=== PATIENT | female | born 1960 | race Caucasian/White ===

== ENCOUNTER 2018-10-02 09:40 | Day surgery (SDC) | payer OTHER ==
[2018-10-02] MEDS ORDERED: DIPRIVAN 200 MG/20 ML IV ONE (09:41)
[2018-10-02] MEDS ORDERED: Depo-Medrol 40 MG/ML IM ONE (09:41)
[2018-10-02] MEDS ORDERED: XYLOCAINE 1% HCL 20 ML MDV IJ ONE (09:41)
[2018-10-02] MEDS ORDERED: Ketamine HCl 50 MG/ML IV ONE (09:41)
[2018-10-02] MEDS ORDERED: Xylocaine 1% Vial 30 ML PF IJ ONE ×2 (09:41)
[2018-10-02] MEDS ORDERED: Marcaine 0.5% SDV 10 ML IJ ONE (09:41)
--- NOTE | 2018-10-02 12:24 | XRAY ---
24 seconds fluoroscopy time in surgery for right knee injection.
--- NOTE | 2018-10-02 12:24 | XRAY ---
6 seconds fluoroscopy time in surgery for left knee injection.
--- NOTE | 2018-10-02 12:25 | XRAY ---
Indication: Left knee injection. Intraoperative fluoroscopy was provided for 6 seconds. Single digital spot image submitted for interpretation demonstrates needle tip projecting over the left femur intercondylar notch. Small amount of contrast injected for needle tip placement. Correlate with intraoperative findings/report.
--- NOTE | 2018-10-02 12:34 | XRAY ---
Indication: Right knee injection. Intraoperative fluoroscopy was provided for 24 seconds. Single digital spot image submitted for interpretation demonstrates needle tip projecting over the right femur intercondylar notch. Small amount of contrast injected for needle tip placement. Correlate with intraoperative findings/report.
[2018-10-02] MEDS ORDERED: Lactated Ringers 1,000 ML IV ONE (13:47)
== END 2018-10-02 11:41 | disposition home or self-care (01) ==
LOC: SDC-PAIN 09:40
PROVIDERS: ATTEND Psychiatry & Neurology Pain Medicine
DX: M17.0 Bilateral primary osteoarthritis of knee (principal); I10 Essential (primary) hypertension; G47.30 Sleep apnea, unspecified; G47.419 Narcolepsy without cataplexy; K21.9 Gastro-esophageal reflux disease without esophagitis; F32.9 Major depressive disorder, single episode, unspecified
CPT/HCPCS: 20610; 73560; 77002; J1030; J2001; J2704; Q9966

== ENCOUNTER 2019-02-06 20:01 | Emergency (ER) | payer OTHER ==
--- NOTE | 2019-02-06 20:21 | ERPHSYRPT ---
- History of Present Illness Time Seen by Provider: 02/06/19 20:15 Source: patient Exam Limitations: no limitations Physician History: Left foot swelling and pain on the dorsum of the foot, going on for multiple weeks, worse over the past day. Patient's pain is described as a burning type burning sensation. Patient may have a component of heart failure as she had an abnormal 2D Echo recently. Method of Injury: other (patient deals with swelling to her lower extremities multiple month) Occurred: this morning Quality: constant Severity of Pain-Max: moderate Severity of Pain-Current: moderate Lower Extremities Pain: foot: left (swelling and redness at dorsum of the foot) , ankle: left (swelling and redness at dorsum of the ankle) Modifying Factors: Improves With: movement (worsens burning sensation of the pain), other (palpation worsens burning sensation of the pain) Allergies/Adverse Reactions: codeine [Codeine] Allergy (Mild, Verified 02/06/19 20:20) Shortness of Breath latex Allergy (Mild, Verified 02/06/19 20:20) Rash states "have a little on my waistband" Home Medications: Furosemide [Lasix] 40 mg PO DAILY 07/15/13 [History] Modafinil [Provigil] 200 mg PO DAILY 07/15/13 [History] Famotidine 20 mg [Pepcid 20 MG] 20 mg PO BID 10/25/16 [History] Levothyroxine Sodium 100 Mcg [Synthroid 100 Mcg] 2 tab PO QAM 10/25/16 [ History] Amitriptyline HCl 25 mg [Elavil 25 mg] 50 mg PO HS 02/06/19 [History] Cyclobenzaprine HCl [Flexeril] 10 mg PO HS 02/06/19 [History] Lisinopril 20 mg [Zestril 20 MG] 20 mg PO DAILY 02/06/19 [History] Hx Tetanus, Diphtheria Vaccination/Date Given: Yes Hx Influenza Vaccination/Date Given: Yes Hx Pneumococcal Vaccination/Date Given: No - Review of Systems Constitutional: No Fever, No Chills Eyes: No Eye Pain, No Vision Changes Ears, Nose, & Throat: No Throat Pain, No Throat Swelling, No Painful Swallowing Respiratory: No Cough, No Dyspnea Cardiac: No Chest Pain, No Edema, No Palpitations, No Syncope Abdominal/Gastrointestinal: No Abdominal Pain, No Nausea, No Vomiting, No Diarrhea Genitourinary Symptoms: No Dysuria Musculoskeletal: No Back Pain, No Neck Pain Skin: Other (redness to dorsum of left foot/dorsum of ankle), No Rash Neurological: Parasthesia (dorsum of left foot), No Dizziness, No Focal Weakness , No Paralysis, No Sensory Changes, No Tremors Psychological: No Symptoms Endocrine: No Symptoms Hematologic/Lymphatic: No Easy Bleeding, No Easy Bruising All Other Systems: Reviewed and Negative - Past Medical History Pertinent Past Medical History: Yes Neurological History: Other ENT History: No Pertinent History Cardiac History: Hypertension Respiratory History: No Pertinent History Endocrine Medical History: Hypothyroidism Musculoskeletal History: Arthritis GI Medical History: Diverticulosis History: No Pertinent History Psycho-Social History: Anxiety Female Reproductive Disorders: No Pertinent History Other Medical History: Narcolepsy - Past Surgical History Past Surgical History: Yes Neuro Surgical History: No Pertinent History Cardiac: No Pertinent History Respiratory: No Pertinent History Gastrointestinal: Cholecystectomy Genitourinary: No Pertinent History Musculoskeletal: Orthopedic Surgery Female Surgical History: Hysterectomy Other Surgical History: SINUS SURGERY - Social History Smoking Status: Never smoker Exposure to second hand smoke: No Drug Use: none Patient Lives Alone: No - Nursing Vital Signs Nursing Vital Signs: Initial Vital Signs Temperature 99.5 F 02/06/19 20:07 Pulse Rate 98 H 02/06/19 20:07 Respiratory Rate 18 02/06/19 20:07 Blood Pressure 199/100 02/06/19 20:07 O2 Sat by Pulse Oximetry 95 02/06/19 20:07 Pain Scale Pain Intensity 4 - Physical Exam General Appearance: alert Eyes, Ears, Nose, Throat Exam: moist mucous membranes Neck Exam: non-tender, supple Cardiovascular/Respiratory Exam: chest non-tender, normal breath sounds, regular rate/rhythm, heart sounds normal, no respiratory distress, normal peripheral pulses Gastrointestinal/Abdominal Exam: non-tender, soft, No guarding, No tenderness Back Exam: normal inspection, No CVA tenderness, No vertebral tenderness Hips Exam: bilateral: non-tender, normal inspection, normal range of motion, no evidence of injury Legs Exam: bilateral leg: non-tender, normal inspection, normal range of motion , no evidence of injury Knees Exam: bilateral knee: non-tender, normal inspection, normal range of motion, no evidence of injury Ankle Exam: bilateral ankle: non-tender, normal inspection, normal range of motion, no evidence of injury, other (no change in calf circumference bilaterally with no lower leg edema bilaterally) Foot Exam: left foot: pain (dorsum of the left foot), soft tissue tenderness ( dorsum of the left foot), bilateral foot: non-tender, normal inspection, normal range of motion, no evidence of injury, swelling, other (no signs of swelling or erythema to either dorsum of either foot or at the skin over the ankle mortise bilaterally) Neuro/Tendon Exam: normal sensation, normal motor functions Mental Status Exam: alert, oriented x 3, cooperative Skin Exam: normal color, warm, dry SpO2 Interpretation: normal O2 Delivery: Room Air - Radiology Exams Left Foot X-ray Interpretation: Interpreted by me, Reviewed by me, No Fracture, Nml Alignment, Nml Soft Tissues Ordered Tests: Active Orders 24 hr Category Date Time Status IV Insertion STAT Care 02/06/19 20:52 Active FOOT (MINIMUM 3 VIEWS) Stat Exams 02/06/19 20:30 Taken CBC W DIFF Stat Lab 02/06/19 20:30 Completed CK-Creatinine Phosphokinase Stat Lab 02/06/19 20:30 Completed CMP Stat Lab 02/06/19 20:30 Completed Lactic Acid Stat Lab 02/06/19 20:16 Completed Lactic Acid Stat Lab 02/06/19 23:34 Results SED RATE [Erythrocyte Sedimentation Rate] Stat Lab 02/06/19 20:30 Completed Medication Summary Discontinued Medications Generic Name Dose Route Start Last Admin Trade Name Shahnaz PRN Reason Stop Dose Admin Acetaminophen 1,000 mg 02/06/19 22:02 02/06/19 22:10 Tylenol Extra Strength 500 Mg PO 02/06/19 22:03 1,000 mg STAT STA Administration Acetaminophen Confirm 02/06/19 22:06 Tylenol Extra Strength 500 Mg Administered 02/06/19 22:07 Dose 1,000 mg .ROUTE .STK-MED ONE Clonidine 0.1 mg 02/06/19 20:23 02/06/19 20:28 Catapres 0.1 Mg PO 02/06/19 20:24 0.1 mg STAT ONE Administration Clonidine Confirm 02/06/19 20:25 Catapres 0.1 Mg Administered 02/06/19 20:26 Dose 0.1 mg .ROUTE .STK-MED ONE Sodium Chloride 1,000 mls @ 999 mls/hr 02/06/19 20:52 02/06/19 22:14 Sodium Chloride 0.9% 1000 Ml IV 02/06/19 21:52 Infused .Q1H1M STA Infusion Sodium Chloride Confirm 02/06/19 21:08 Sodium Chloride 0.9% 1000 Ml Administered 02/06/19 21:09 Dose 1,000 mls @ ud .ROUTE .STK-MED ONE Ketorolac Tromethamine 15 mg 02/06/19 22:04 02/06/19 22:10 Toradol 30 Mg Injection IV 02/06/19 22:05 15 mg STAT ONE Administration Ketorolac Tromethamine Confirm 02/06/19 22:06 Toradol 30 Mg Injection Administered 02/06/19 22:07 Dose 30 mg .ROUTE .STK-MED ONE Lab/Rad Data: Laboratory Result Diagrams 02/06/19 20:30 02/06/19 20:30 Laboratory Results 02/06/19 02/06/19 02/06/19 Range/Units 23:34 20:30 20:30 WBC 9.7 (4.0-10.5) K/mm3 RBC 5.04 (4.1-5.4) M/mm3 Hgb 14.2 (12.0-16.0) gm/dl Hct 42.6 (35-47) % MCV 84.5 (78-100) fl MCH 28.2 (26-32) pg MCHC 33.3 (32-36) g/dl RDW 13.6 (11.5-14.0) % Plt Count 213 (150-450) K/mm3 MPV 9.7 H (6-9.5) fl Gran % 48.7 (36.0-66.0) % Eos # (Auto) 0.29 (0-0.5) Absolute Lymphs (auto) 3.80 (1.0-4.6) Absolute Monos (auto) 0.83 (0.0-1.3) Lymphocytes % 39.3 (24.0-44.0) % Monocytes % 8.6 (0.0-12.0) % Eosinophils % 3.0 (0.00-5.0) % Basophils % 0.4 (0.0-0.4) % Absolute Granulocytes 4.70 (1.4-6.9) Basophils # 0.04 (0-0.4) ESR 11 (0-20) mm/hr Sodium 142 (137-145) mmol/L Potassium 3.7 (3.5-5.1) mmol/L Chloride 103 (98-107) mmol/L Carbon Dioxide 31 H (22-30) mmol/L Anion Gap 12.3 (5-15) MEQ/L BUN 13 (7-17) mg/dL Creatinine 0.67 (0.52-1.04) mg/dL Estimated GFR > 60.0 ML/MIN Glucose 121 H (74-106) mg/dL Lactic Acid 2.2 H (0.4-2.0) Calcium 9.5 (8.4-10.2) mg/dL Total Bilirubin 0.50 (0.2-1.3) mg/dL AST 35 (14-36) U/L ALT 37 H (0-35) U/L Alkaline Phosphatase 132 H (38-126) U/L Creatine Kinase 147 H (30-135) U/L Serum Total Protein 7.6 (6.3-8.2) g/dL Albumin 4.3 (3.5-5.0) g/dL 02/06/19 Range/Units 20:16 WBC (4.0-10.5) K/mm3 RBC (4.1-5.4) M/mm3 Hgb (12.0-16.0) gm/dl Hct (35-47) % MCV (78-100) fl MCH (26-32) pg MCHC (32-36) g/dl RDW (11.5-14.0) % Plt Count (150-450) K/mm3 MPV (6-9.5) fl Gran % (36.0-66.0) % Eos # (Auto) (0-0.5) Absolute Lymphs (auto) (1.0-4.6) Absolute Monos (auto) (0.0-1.3) Lymphocytes % (24.0-44.0) % Monocytes % (0.0-12.0) % Eosinophils % (0.00-5.0) % Basophils % (0.0-0.4) % Absolute Granulocytes (1.4-6.9) Basophils # (0-0.4) ESR (0-20) mm/hr Sodium (137-145) mmol/L Potassium (3.5-5.1) mmol/L Chloride (98-107) mmol/L Carbon Dioxide (22-30) mmol/L Anion Gap (5-15) MEQ/L BUN (7-17) mg/dL Creatinine (0.52-1.04) mg/dL Estimated GFR ML/MIN Glucose (74-106) mg/dL Lactic Acid 2.6 H (0.4-2.0) Calcium (8.4-10.2) mg/dL Total Bilirubin (0.2-1.3) mg/dL AST (14-36) U/L ALT (0-35) U/L Alkaline Phosphatase (38-126) U/L Creatine Kinase (30-135) U/L Serum Total Protein (6.3-8.2) g/dL Albumin (3.5-5.0) g/dL - Progress Progress: improved, re-examined Progress Note: 02/06/19 23:58 Patient has no edema, redness, warmth, or erythema streaking at the dorsum of the foot on the left side in comparison to the right side. Patient states her pain is completely resolved to the dorsum of her left foot. The patient has improved blood pressure her time in the emergency department with IV hydration, IV pain control and oral medication. Counseled pt/family regarding: lab results, diagnosis, need for follow-up, rad results - Departure Departure Disposition: Home Clinical Impression: Left foot pain, Localized swelling of left foot, Essential hypertension Condition: Good Critical Care Time: No Referrals: SAUL EVANGELISTA [Primary Care Provider] - 02/07/19 Instructions: Dependent Edema (DC), Peripheral Neuropathy (DC), Paresthesias ( DC), High Blood Pressure (DC) Additional Instructions: Return immediately back to the emergency department if any new pain, worsening swelling, worsening redness, new fever, or any other concerning signs or symptoms that was not present at today's emergency department visit for immediate reevaluation in the emergency department. We will notify you if the radiologist interpretation the morning of 02/07/2019 is different from Emergency Department attending interpretation if it changes your management.
[2019-02-06] MEDS ORDERED: Catapres 0.1 MG PO ONE (20:23)
[2019-02-06] MEDS ORDERED: Catapres 0.1 MG ONE (20:25)
[2019-02-06 20:40] LABS: BASOPHIL % 0.4 % (0.0-0.4); Basophil (Absolute #) 0.04 (0-0.4); Eosinophil (Absolute #) 0.29 (0-0.5); Granulocytes % 48.7 % (36.0-66.0); Hematocrit 42.6 % (35-47); Hemoglobin 14.2 gm/dl (12.0-16.0); Lymphocytes % 39.3 % (24.0-44.0); Mean Cell Volume 84.5 fl (78-100); Mean Corpuscular Hemoglobin 28.2 pg (26-32); Mean Corpuscular Hgb Concent. 33.3 g/dl (32-36); Mean Platelet Volume 9.7 fl (6-9.5); Monocyte (Absolute #) 0.83 (0.0-1.3); Monocytes % 8.6 % (0.0-12.0); Platelet Count 213 K/mm3 (150-450); Red Blood Count 5.04 M/mm3 (4.1-5.4); Red Cell Distribution Width 13.6 % (11.5-14.0); White Blood Count 9.7 K/mm3 (4.0-10.5)
[2019-02-06 20:41] LABS: Lactic Acid 2.6 (0.4-2.0)
[2019-02-06 20:52] LABS: ALBUMIN 4.3 g/dL (3.5-5.0); ALKALINE PHOSPHATASE 132 U/L (38-126); ANION GAP 12.3 MEQ/L (5-15); BLOOD UREA NITROGEN 13 mg/dL (7-17); CHLORIDE 103 mmol/L (98-107); CK-Creatinine Phosphokinase 147 U/L (30-135); Calcium 9.5 mg/dL (8.4-10.2); Carbon Dioxide 31 mmol/L (22-30); Creatinine 1 0.67 mg/dL (0.52-1.04); Glucose 121 mg/dL (74-106); Potassium 3.7 mmol/L (3.5-5.1); SGOT/AST 35 U/L (14-36); SGPT/ALT 37 U/L (0-35); SODIUM 142 mmol/L (137-145); Total Protein 7.6 g/dL (6.3-8.2)
[2019-02-06] MEDS ORDERED: Sodium Chloride 0.9% 1000 ML 1,000 ML IV STA (20:52)
[2019-02-06 21:05] LABS: Erythrocyte Sedimentation Rate 11 mm/hr (0-20)
[2019-02-06] MEDS ORDERED: Sodium Chloride 0.9% 1000 ML 1,000 ML ONE (21:08)
[2019-02-06] MEDS ORDERED: TYLENOL EXTRA STRENGTH 500 MG PO STA (22:02)
[2019-02-06] MEDS ORDERED: TORAdol 30 mg Injection IV ONE (22:04)
[2019-02-06] MEDS ORDERED: TORAdol 30 mg Injection ONE (22:06)
[2019-02-06] MEDS ORDERED: TYLENOL EXTRA STRENGTH 500 MG ONE (22:06)
[2019-02-06 23:07] VITALS: O2SAT 96
[2019-02-06 23:45] LABS: Lactic Acid 2.2 (0.4-2.0)
[2019-02-07 00:05] VITALS: BP 148/99; PULSE 88
--- NOTE | 2019-02-07 08:38 | XRAY ---
Indication: Swelling. No known injury. Comparison: None 3 nonweightbearing views of the left foot demonstrates mild midfoot degenerative changes, base 5th metatarsal spurring, moderate heel spurs, and diffuse soft tissue swelling/edema. No other bony, articular, or soft tissue abnormalities.
== END 2019-02-07 00:11 | disposition home or self-care (01) ==
LOC: ED 20:01
DX: M79.672 Pain in left foot (principal); M79.89 Other specified soft tissue disorders; I10 Essential (primary) hypertension
CPT/HCPCS: 36000; 36415; 73630; 80053; 82550; 83605; 85025; 85652; 96360; 96374; 99284; J1885; A9270-GY

== ENCOUNTER 2019-04-09 12:46 | Day surgery (SDC) | payer OTHER ==
[2019-04-09] MEDS ORDERED: Marcaine 0.5% SDV 10 ML IJ ONE (12:47)
[2019-04-09] MEDS ORDERED: DIPRIVAN 200 MG/20 ML IV ONE ×2 (15:09→15:17)
[2019-04-09] MEDS ORDERED: Ketamine HCl 50 MG/ML ONE (15:18)
--- NOTE | 2019-04-09 16:29 | XRAY ---
17 seconds fluoroscopy time in surgery for genicular nerve root block.
--- NOTE | 2019-04-09 16:29 | XRAY ---
Indication: Genicular nerve root injection. Intraoperative fluoroscopy was provided for 17 seconds. 2 digital spot images submitted for interpretation demonstrates anterior needle tips projecting just superior to the medial/lateral right femur condyles and medial tibial plateau. Correlate with intraoperative findings/report.
[2019-04-09] MEDS ORDERED: Lactated Ringers 1,000 ML IV ONE (18:22)
== END 2019-04-09 15:47 | disposition home or self-care (01) ==
LOC: SDC-PAIN 12:46
PROVIDERS: ATTEND Psychiatry & Neurology Pain Medicine
DX: M17.12 Unilateral primary osteoarthritis, left knee (principal); I10 Essential (primary) hypertension; G47.30 Sleep apnea, unspecified; K21.9 Gastro-esophageal reflux disease without esophagitis; G47.419 Narcolepsy without cataplexy; F32.9 Major depressive disorder, single episode, unspecified; Z79.899 Other long term (current) drug therapy
CPT/HCPCS: 64450; 73560; 77002; J2704

== ENCOUNTER 2019-06-11 11:40 | Day surgery (SDC) | payer MEDICAID, OTHER ==
[2019-06-11] MEDS ORDERED: Depo-Medrol 40 MG/ML IM ONE (11:41)
[2019-06-11] MEDS ORDERED: Xylocaine 1% Vial 30 ML PF IJ ONE (11:41)
[2019-06-11] MEDS ORDERED: Marcaine 0.5% SDV 10 ML IJ ONE (11:41)
[2019-06-11] MEDS ORDERED: VERSED 5 MG/5 ML ONE (12:26)
[2019-06-11] MEDS ORDERED: Ketamine HCl 50 MG/ML ONE ×2 (12:44→13:14)
[2019-06-11] MEDS ORDERED: DIPRIVAN 200 MG/20 ML IV ONE ×2 (12:44→13:14)
--- NOTE | 2019-06-11 15:07 | XRAY ---
Indication: Left genicular nerve root injection. Intraoperative fluoroscopy was provided for 22 seconds. 2 digital spot images submitted for interpretation demonstrates anterior needle tips projecting just superior to the medial/lateral left femur condyles and medial tibial plateau. Correlate with intraoperative findings/report.
[2019-06-11] MEDS ORDERED: Lactated Ringers 1,000 ML IV ONE (15:31)
--- NOTE | 2019-06-11 16:42 | XRAY ---
22 seconds of fluoroscopy was used in surgery for a left genicular nerve ablation.
== END 2019-06-11 13:42 | disposition home or self-care (01) ==
LOC: SDC-PAIN 11:40
PROVIDERS: ATTEND Psychiatry & Neurology Pain Medicine
DX: M17.12 Unilateral primary osteoarthritis, left knee (principal); M25.562 Pain in left knee; I10 Essential (primary) hypertension; G47.30 Sleep apnea, unspecified; G47.419 Narcolepsy without cataplexy; K21.9 Gastro-esophageal reflux disease without esophagitis; F32.9 Major depressive disorder, single episode, unspecified; Z79.899 Other long term (current) drug therapy
CPT/HCPCS: 64624; 73560; 77002; J1030; J2001; J2250; J2704

== ENCOUNTER 2019-07-23 08:37 | Day surgery (SDC) | payer OTHER ==
[2019-07-23] MEDS ORDERED: Xylocaine 1% Vial 30 ML PF IJ ONE (08:38)
[2019-07-23] MEDS ORDERED: Marcaine 0.5% SDV 10 ML IJ ONE (08:38)
[2019-07-23] MEDS ORDERED: Ketamine HCl 50 MG/ML ONE (10:03)
[2019-07-23] MEDS ORDERED: DIPRIVAN 200 MG/20 ML IV ONE (10:03)
[2019-07-23] MEDS ORDERED: VERSED 5 MG/5 ML ONE (10:11)
--- NOTE | 2019-07-23 11:47 | XRAY ---
Indication: Right knee genicular nerve block Intraoperative fluoroscopy was provided for 27 seconds. 2 digital spot images submitted for interpretation demonstrates anterior needle tips projecting just superior to the medial/lateral right femur condyle and medial tibial plateau. Correlated with intraoperative findings/report.
--- NOTE | 2019-07-23 11:51 | XRAY ---
27 seconds fluoroscopy time in surgery for right genicular nerve block.
[2019-07-23] MEDS ORDERED: Lactated Ringers 1,000 ML IV ONE (13:38)
== END 2019-07-23 11:03 | disposition home or self-care (01) ==
LOC: SDC-PAIN 08:37
PROVIDERS: ATTEND Psychiatry & Neurology Pain Medicine
DX: M17.11 Unilateral primary osteoarthritis, right knee (principal); M25.561 Pain in right knee; I10 Essential (primary) hypertension; G47.30 Sleep apnea, unspecified; K21.9 Gastro-esophageal reflux disease without esophagitis; F41.8 Other specified anxiety disorders; Z79.899 Other long term (current) drug therapy
CPT/HCPCS: 64624; 73560; 77002; J2001; J2250; J2704

== ENCOUNTER 2019-11-06 23:04 | Emergency (ER) | payer OTHER ==
[2019-11-06 23:20] VITALS: BP 124/84; PULSE 104; O2SAT 95
[2019-11-06] MEDS ORDERED: Augmentin 875-125 Tablet PO ONE (23:23)
--- NOTE | 2019-11-06 23:23 | ERPHSYRPT ---
- History of Present Illness Time Seen by Provider: 11/06/19 23:17 Source: patient Exam Limitations: no limitations Physician History: Uriel is a 58-year-old female who presents with what was originally an insect bite on the face just on the right side of the upper lip. That has now become quite swollen and indurated and has a crusty lesion which was caused by her squeezing it and getting a bloody drainage. Timing/Duration: day(s) (3), gradual onset Quality: itchy, painful Severity: moderate Location: face Possible Causes: insect bite Associated Symptoms: denies symptoms Allergies/Adverse Reactions: codeine [Codeine] Allergy (Mild, Verified 02/06/19 20:20) Shortness of Breath latex Allergy (Mild, Verified 02/06/19 20:20) Rash states "have a little on my waistband" Home Medications: Furosemide [Lasix] 40 mg PO DAILY 07/15/13 [History] Modafinil [Provigil] 200 mg PO DAILY 07/15/13 [History] Famotidine 20 mg [Pepcid 20 MG] 20 mg PO BID 10/25/16 [History] Levothyroxine Sodium 100 Mcg [Synthroid 100 Mcg] 2 tab PO QAM 10/25/16 [ History] Amitriptyline HCl 25 mg [Elavil 25 mg] 50 mg PO HS 02/06/19 [History] Cyclobenzaprine HCl [Flexeril] 10 mg PO HS 02/06/19 [History] Lisinopril 20 mg [Zestril 20 MG] 20 mg PO DAILY 02/06/19 [History] Hx Tetanus, Diphtheria Vaccination/Date Given: Yes Hx Influenza Vaccination/Date Given: Yes Hx Pneumococcal Vaccination/Date Given: No - Review of Systems Constitutional: No Fever, No Chills Eyes: No Symptoms Ears, Nose, & Throat: No Symptoms Respiratory: No Cough, No Dyspnea Cardiac: No Chest Pain, No Edema, No Syncope Abdominal/Gastrointestinal: No Abdominal Pain, No Nausea, No Vomiting, No Diarrhea Genitourinary Symptoms: No Dysuria Musculoskeletal: No Back Pain, No Neck Pain Skin: Skin Lesions (2 lesions with underlying induration right side of the face about a centimeter above the right upper lip), No Rash Neurological: No Dizziness, No Focal Weakness, No Sensory Changes Psychological: No Symptoms Endocrine: No Symptoms All Other Systems: Reviewed and Negative - Past Medical History Pertinent Past Medical History: Yes Neurological History: Other ENT History: No Pertinent History Cardiac History: Hypertension Respiratory History: No Pertinent History Endocrine Medical History: Hypothyroidism Musculoskeletal History: Arthritis GI Medical History: Diverticulosis History: No Pertinent History Psycho-Social History: Anxiety Female Reproductive Disorders: No Pertinent History Other Medical History: Narcolepsy - Past Surgical History Past Surgical History: Yes Neuro Surgical History: No Pertinent History Cardiac: No Pertinent History Respiratory: No Pertinent History Gastrointestinal: Cholecystectomy Genitourinary: No Pertinent History Musculoskeletal: Orthopedic Surgery Female Surgical History: Hysterectomy Other Surgical History: SINUS SURGERY - Social History Smoking Status: Never smoker Exposure to second hand smoke: No Drug Use: none Patient Lives Alone: No - Physical Exam General Appearance: mild distress, alert Eye Exam: PERRL/EOMI, eyes nml inspection Ears, Nose, Throat Exam: normal ENT inspection, pharynx normal, moist mucous membranes Neck Exam: normal inspection, non-tender, supple, full range of motion Respiratory Exam: normal breath sounds, lungs clear, No respiratory distress Cardiovascular Exam: regular rate/rhythm, normal heart sounds Gastrointestinal/Abdomen Exam: soft, mass, No tenderness Back Exam: normal inspection, normal range of motion, No CVA tenderness, No vertebral tenderness Extremity Exam: normal inspection, normal range of motion Neurologic Exam: alert, oriented x 3, cooperative, normal mood/affect, sensation nml, No motor deficits Skin Exam: normal color, warm, dry, other (There is a crusted lesion right side of the face with underlying induration and swelling) - Course Nursing assessment & vital signs reviewed: Yes - Progress Progress: unchanged - Departure Departure Disposition: Home Clinical Impression: Insect bite of face, infected Condition: Stable Critical Care Time: No Referrals: SAUL EVANGELISTA [Primary Care Provider] - Instructions: Insect Bites and Stings (DC) Prescriptions: Amoxicillin/Potassium Clav [Augmentin 875-125 Tablet] 1 each PO BID 10 Days #20 tablet
[2019-11-06] MEDS ORDERED: Augmentin 875-125 Tablet ONE (23:29)
== END 2019-11-06 23:35 | disposition home or self-care (01) ==
LOC: ED 23:04
DX: T63.481A Toxic effect of venom of other arthropod, accidental (unintentional), initial encounter (principal); S00.86XA Insect bite (nonvenomous) of other part of head, initial encounter; W57.XXXA Bitten or stung by nonvenomous insect and other nonvenomous arthropods, initial encounter; Y93.89 Activity, other specified; Y92.89 Other specified places as the place of occurrence of the external cause
CPT/HCPCS: 99283; A9270-GY

== ENCOUNTER 2020-11-09 17:53 | Observation (INO) | payer MEDICARE ==
[2020-11-09 18:28] LABS: Absolute Neutrophil Ct (ANC) 7.45 (1.4-6.9); BASOPHIL % 0.5 % (0.0-0.4); Basophil (Absolute #) 0.06 (0-0.4); Eosinophil % 1.7 % (0.00-5.0); Eosinophil (Absolute #) 0.22 (0-0.5); Hemoglobin 14.6 gm/dl (12.0-16.0); Lymphocyte (Absolute #) 4.13 (1.0-4.6); Lymphocytes % 32.3 % (24.0-44.0); Mean Cell Volume 84.4 fl (78-100); Mean Corpuscular Hemoglobin 27.4 pg (26-32); Mean Corpuscular Hgb Concent. 32.4 g/dl (32-36); Monocyte (Absolute #) 0.94 (0.0-1.3); Monocytes % 7.3 % (0.0-12.0); Neutrophil % 58.2 % (36.0-66.0); Platelet Count 281 K/mm3 (150-450); Red Blood Count 5.33 M/mm3 (4.1-5.4); Red Cell Distribution Width 13.6 % (11.5-14.0); White Blood Count 12.8 K/mm3 (4.0-10.5)
[2020-11-09 18:45] LABS: Appearance CLEAR (CLEAR); Bilirubin NEGATIVE (NEGATIVE); Blood NEGATIVE Ery/ul (0-5); Epithelial Cells RARE /HPF (FEW); Glucose NEGATIVE (NEGATIVE); Ketones NEGATIVE (NEGATIVE); Leukocyte Esterase SMALL (NEGATIVE); Mucus SLIGHT /HPF (NEGATIVE); Nitrite NEGATIVE (NEGATIVE); Protein,Urine Dip NEGATIVE (Negative); RBC 0-2 /HPF (0-2); Specific Gravity 1.006 (1.005-1.025); Urobilinogen NEGATIVE mg/dL (0-1)
[2020-11-09 19:16] LABS: ALBUMIN 4.3 g/dL (3.5-5.0); ALKALINE PHOSPHATASE 105 U/L (38-126); ANION GAP 11.9 MEQ/L (5-15); BLOOD UREA NITROGEN 11 mg/dL (7-17); CHLORIDE 106 mmol/L (98-107); Carbon Dioxide 25 mmol/L (22-30); Creatinine 1 0.59 mg/dL (0.52-1.04); EST GLOMERULAR FILTRATION RATE > 60.0 ML/MIN; Glucose 126 mg/dL (74-106); MAGNESIUM 2.1 mg/dL (1.6-2.3); Potassium 3.2 mmol/L (3.5-5.1); SGOT/AST 38 U/L (14-36); SGPT/ALT 38 U/L (0-35); SODIUM 140 mmol/L (137-145); Total Protein 7.3 g/dL (6.3-8.2)
[2020-11-09] MEDS ORDERED: Klor Con 10 MEQ PO ONE ×2 (19:40→19:51)
--- NOTE | 2020-11-09 19:47 | ERPHSYRPT ---
- History of Present Illness Time Seen by Provider: 11/09/20 18:30 Historian: patient Exam Limitations: no limitations Patient Subjective Stated Complaint: Pt began having chest pain at approx 1500, also has pain to the right lateral ribs Triage Nursing Assessment: Pt brought to the ER by her , rates pain in chest and ribs as 5/10, pulses normal, hypertensive, skin n/w/d, nausea, doesn't appear to be in any distress Physician History: Patient is a 59-year-old obese female presents to our emergency department with complaints of chest pressure. Symptoms started approximately 3 PM. Patient admits to feeling short of breath and fatigued lately patient attributing her symptoms to blood pressure medication. Patient states her blood pressure medication has been elevated. She was previously on lisinopril. Her primary care doctor change her to metoprolol. Patient believes metoprolol is making her sick. Symptoms are moderate in intensity. No specific worsening or improving factors. Patient denies history of diabetes. Significant other bedside. They voiced no other complaints or concerns at this time. Timing/Duration: today Activities at Onset: none Quality: pressure Location: substernal Chest Pain Radiation: no radiation Severity of Pain-Max: moderate Severity of Pain-Current: mild Modifying Factors: Improves With: nothing Associated Symptoms: nausea, No hurts to breathe, No syncope, No headache, No dizziness Prior Chest Pain/Cardiac Workup: no prior chest pain Nitro Today/Relief: no nitro taken today Aspirin Treatment Today: no aspirin today Allergies/Adverse Reactions: codeine [Codeine] Allergy (Mild, Verified 11/09/20 18:02) Shortness of Breath latex Allergy (Mild, Verified 11/09/20 18:02) Rash states "have a little on my waistband" Home Medications: Furosemide [Lasix] 40 mg PO DAILY 07/15/13 [History] Modafinil [Provigil] 200 mg PO DAILY 07/15/13 [History] Famotidine 20 mg [Pepcid 20 MG] 20 mg PO BID 10/25/16 [History] Levothyroxine Sodium 100 Mcg [Synthroid 100 Mcg] 2 tab PO QAM 10/25/16 [History] Amlodipine Besylate 10 mg PO BID 11/09/20 [History] Diclofenac Sodium [Voltaren] 75 mg PO DAILY 11/09/20 [History] Metoprolol Tartrate 50 mg [Lopressor 50 MG] 50 mg PO BID 11/09/20 [History] Topiramate [Topamax] 50 mg PO DAILY 11/09/20 [History] Hx Tetanus, Diphtheria Vaccination/Date Given: Yes Hx Influenza Vaccination/Date Given: Yes Hx Pneumococcal Vaccination/Date Given: No Travel Risk - International Travel Have you traveled outside of the country in past 3 weeks: No - Coronavirus Screening Are you exhibiting any of the following symptoms?: No Close contact with a COVID-19 positive Pt in past 14-21 Days: No - Vaccine Status Have you recieved a Covid-19 vaccination: No - Review of Systems Constitutional: No Symptoms, No Fever, No Chills Eyes: No Symptoms Ears, Nose, & Throat: No Symptoms Respiratory: No Symptoms, No Cough, No Dyspnea Cardiac: No Symptoms, No Chest Pain, No Edema, No Syncope Abdominal/Gastrointestinal: No Symptoms, No Abdominal Pain, No Nausea, No Vomiti ng, No Diarrhea Genitourinary Symptoms: No Symptoms, No Dysuria Musculoskeletal: No Symptoms, No Back Pain, No Neck Pain Skin: No Symptoms, No Rash Neurological: No Symptoms, No Dizziness, No Focal Weakness, No Sensory Changes Psychological: No Symptoms Endocrine: No Symptoms Hematologic/Lymphatic: No Symptoms Immunological/Allergic: No Symptoms All Other Systems: Reviewed and Negative - Past Medical History Pertinent Past Medical History: Yes Neurological History: Other ENT History: No Pertinent History Cardiac History: Hypertension Respiratory History: No Pertinent History Endocrine Medical History: Hypothyroidism Musculoskeletal History: Arthritis GI Medical History: Diverticulosis History: No Pertinent History Psycho-Social History: Anxiety Female Reproductive Disorders: No Pertinent History Other Medical History: Narcolepsy - Past Surgical History Past Surgical History: Yes Neuro Surgical History: No Pertinent History Cardiac: No Pertinent History Respiratory: No Pertinent History Gastrointestinal: Cholecystectomy Genitourinary: No Pertinent History Musculoskeletal: Orthopedic Surgery Female Surgical History: Hysterectomy Other Surgical History: SINUS SURGERY - Social History Smoking Status: Never smoker Exposure to second hand smoke: No Drug Use: none Patient Lives Alone: No - Female History Hx Now: No - Nursing Vital Signs Nursing Vital Signs: Initial Vital Signs Temperature 97.9 F 11/09/20 17:54 Pulse Rate 84 11/09/20 17:54 Blood Pressure 180/108 11/09/20 17:54 O2 Sat by Pulse Oximetry 96 11/09/20 17:54 Pain Scale Pain Intensity 0 - Physical Exam General Appearance: no apparent distress, alert Eye Exam: PERRL/EOMI, eyes nml inspection Ears, Nose, Throat Exam: normal ENT inspection, moist mucous membranes Neck Exam: normal inspection, non-tender, supple, full range of motion Respiratory Exam: normal breath sounds, lungs clear, No respiratory distress Cardiovascular Exam: regular rate/rhythm, normal heart sounds Gastrointestinal/Abdomen Exam: soft, No tenderness, No mass Back Exam: normal inspection, No CVA tenderness, No vertebral tenderness Extremity Exam: normal inspection, normal range of motion Neurologic Exam: alert, oriented x 3, cooperative, normal mood/affect, sensation nml, No motor deficits Skin Exam: normal color, warm, dry Lymphatic Exam: No adenopathy SpO2 Interpretation: normal SpO2: 97 O2 Delivery: Room Air - Course Nursing assessment & vital signs reviewed: Yes EKG Interpreted by Me: RATE ([id number]), Sinus Rhythm, NORMAL AXIS, NORMAL INTERVALS - Radiology Exams Chest X-ray Interpretation: Interpreted by me (Negative chest x-ray. No infiltrate or consolidation. Normal cardiac silhouette. Normal bony thorax. Negative chest x-ray) Ordered Tests: Active Orders 24 hr Category Date Time Status Pest Technician STAT Care 11/09/20 18:06 Active EKG-ER Only STAT Care 11/09/20 18:06 Active IV Insertion STAT Care 11/09/20 18:06 Active Pulse Oximetry (ED) STAT Care 11/09/20 18:06 Active CHEST 1 VIEW (PORTABLE) Stat Exams 11/09/20 18:06 Taken CBC W DIFF Stat Lab 11/09/20 18:00 Completed CMP Stat Lab 11/09/20 18:00 Completed MAGNESIUM Stat Lab 11/09/20 18:00 Completed TROPONIN Q3H Lab 11/09/20 18:00 Completed TROPONIN Q3H Lab 11/09/20 20:58 Completed TROPONIN Q3H Lab 11/10/20 00:15 Ordered TROPONIN Q3H Lab 11/10/20 03:15 Ordered TROPONIN Q3H Lab 11/10/20 06:15 Ordered UA W/RFX UR CULTURE Stat Lab 11/09/20 18:08 Completed Medication Summary Discontinued Medications Generic Name Dose Route Start Last Admin Trade Name Freq PRN Reason Stop Dose Admin Aspirin 324 mg 11/09/20 19:59 06/15/21 20:02 Baby Aspirin 81 Mg Chew PO 11/09/20 20:00 324 mg STAT ONE Administration Aspirin Confirm 11/09/20 20:01 Baby Aspirin 81 Mg Chew Administered 11/09/20 20:02 Dose 324 mg .ROUTE .STK-MED ONE Nitroglycerin 1 gm 11/09/20 19:59 11/09/20 20:04 Nitro-Bid 2% Ud Packets TOP 11/09/20 20:00 1 gm STAT ONE Administration Nitroglycerin Confirm 11/09/20 20:01 Nitrostat 0.4 Mg (Ed) Administered 11/09/20 20:02 Dose 0.4 mg SL .STK-MED ONE Nitroglycerin Confirm 11/09/20 20:03 Nitro-Bid 2% Ud Packets Administered 11/09/20 20:04 Dose 1 gm .ROUTE .STK-MED ONE Potassium Chloride 40 meq 11/09/20 19:40 11/09/20 20:04 Klor Con 10 Meq PO 11/09/20 19:41 40 meq STAT ONE Administration Potassium Chloride Confirm 11/09/20 19:51 Klor Con 10 Meq Administered 11/09/20 19:52 Dose 20 meq PO .STK-MED ONE Lab/Rad Data: Laboratory Result Diagrams 11/09/20 18:00 11/09/20 18:00 Laboratory Results 11/09/20 11/09/20 11/09/20 Range/Units 21:35 20:58 18:08 WBC (4.0-10.5) K/mm3 RBC (4.1-5.4) M/mm3 Hgb (12.0-16.0) gm/dl Hct (35-47) % MCV (78-100) fl MCH (26-32) pg MCHC (32-36) g/dl RDW (11.5-14.0) % Plt Count (150-450) K/mm3 MPV (7.5-11.0) fl Gran % (36.0-66.0) % Eos # (Auto) (0-0.5) Absolute Lymphs (auto) (1.0-4.6) Absolute Monos (auto) (0.0-1.3) Lymphocytes % (24.0-44.0) % Monocytes % (0.0-12.0) % Eosinophils % (0.00-5.0) % Basophils % (0.0-0.4) % Absolute Granulocytes (1.4-6.9) Basophils # (0-0.4) Sodium (137-145) mmol/L Potassium (3.5-5.1) mmol/L Chloride (98-107) mmol/L Carbon Dioxide (22-30) mmol/L Anion Gap (5-15) MEQ/L BUN (7-17) mg/dL Creatinine (0.52-1.04) mg/dL Estimated GFR ML/MIN Glucose (74-106) mg/dL Calcium (8.4-10.2) mg/dL Magnesium (1.6-2.3) mg/dL Total Bilirubin (0.2-1.3) mg/dL AST (14-36) U/L ALT (0-35) U/L Alkaline Phosphatase (38-126) U/L Troponin I < 0.012 (0.000-0.034) ng/mL Serum Total Protein (6.3-8.2) g/dL Albumin (3.5-5.0) g/dL Urine Color STRAW (YELLOW) Urine Appearance CLEAR (CLEAR) Urine pH 6.0 (5-6) Ur Specific [place] 1.006 (1.005-1.025) Urine Protein NEGATIVE (Negative) Urine Ketones NEGATIVE (NEGATIVE) Urine Blood NEGATIVE (0-5) Randall/ul Urine Nitrite NEGATIVE (NEGATIVE) Urine Bilirubin NEGATIVE (NEGATIVE) Urine Urobilinogen NEGATIVE (0-1) mg/dL Ur Leukocyte Esterase SMALL (NEGATIVE) Urine WBC (Auto) 6-10 (0-5) /HPF Urine RBC (Auto) 0-2 (0-2) /HPF U Epithel Cells (Auto) RARE (FEW) /HPF Urine Bacteria (Auto) NONE (NEGATIVE) /HPF Urine Mucus (Auto) SLIGHT (NEGATIVE) /HPF Urine Culture Reflexed NO (NO) Urine Glucose NEGATIVE (NEGATIVE) mg/dL SARS-CoV-2 (PCR) NEGATIVE (NEGATIVE) 11/09/20 11/09/20 11/09/20 Range/Units 18:00 18:00 18:00 WBC 12.8 H (4.0-10.5) K/mm3 RBC 5.33 (4.1-5.4) M/mm3 Hgb 14.6 (12.0-16.0) gm/dl Hct 45.0 (35-47) % MCV 84.4 (78-100) fl MCH 27.4 (26-32) pg MCHC 32.4 (32-36) g/dl RDW 13.6 (11.5-14.0) % Plt Count 281 (150-450) K/mm3 MPV 10.0 (7.5-11.0) fl Gran % 58.2 (36.0-66.0) % Eos # (Auto) 0.22 (0-0.5) Absolute Lymphs (auto) 4.13 (1.0-4.6) Absolute Monos (auto) 0.94 (0.0-1.3) Lymphocytes % 32.3 (24.0-44.0) % Monocytes % 7.3 (0.0-12.0) % Eosinophils % 1.7 (0.00-5.0) % Basophils % 0.5 (0.0-0.4) % Absolute Granulocytes 7.45 H (1.4-6.9) Basophils # 0.06 (0-0.4) Sodium 140 (137-145) mmol/L Potassium 3.2 L (3.5-5.1) mmol/L Chloride 106 (98-107) mmol/L Carbon Dioxide 25 (22-30) mmol/L Anion Gap 11.9 (5-15) MEQ/L BUN 11 (7-17) mg/dL Creatinine 0.59 (0.52-1.04) mg/dL Estimated GFR > 60.0 ML/MIN Glucose 126 H (74-106) mg/dL Calcium 9.0 (8.4-10.2) mg/dL Magnesium 2.1 (1.6-2.3) mg/dL Total Bilirubin 0.40 (0.2-1.3) mg/dL AST 38 H (14-36) U/L ALT 38 H (0-35) U/L Alkaline Phosphatase 105 (38-126) U/L Troponin I < 0.012 (0.000-0.034) ng/mL Serum Total Protein 7.3 (6.3-8.2) g/dL Albumin 4.3 (3.5-5.0) g/dL Urine Color (YELLOW) Urine Appearance (CLEAR) Urine pH (5-6) Ur Specific [place] (1.005-1.025) Urine Protein (Negative) Urine Ketones (NEGATIVE) Urine Blood (0-5) Randall/ul Urine Nitrite (NEGATIVE) Urine Bilirubin (NEGATIVE) Urine Urobilinogen (0-1) mg/dL Ur Leukocyte Esterase (NEGATIVE) Urine WBC (Auto) (0-5) /HPF Urine RBC (Auto) (0-2) /HPF U Epithel Cells (Auto) (FEW) /HPF Urine Bacteria (Auto) (NEGATIVE) /HPF Urine Mucus (Auto) (NEGATIVE) /HPF Urine Culture Reflexed (NO) Urine Glucose (NEGATIVE) mg/dL SARS-CoV-2 (PCR) (NEGATIVE) - Progress Progress: improved Air Movement: good Progress Note: Case discussed with Dr. Oneill who accepts admission to observation. Plan of care discussed with patient. She agrees to admission at [facility] for further evaluation and treatment. 11/09/20 23:08 Blood Culture(s) Obtained: No Antibiotics given: No Discussed with : Kem Will see patient in: hospital (observation) Counseled pt/family regarding: lab results, diagnosis, rad results - Departure Departure Disposition: Observation Clinical Impression: Chest pain, Hypokalemia, Leukocytosis, ACS (acute coronary syndrome) Condition: Stable Critical Care Time: No
[2020-11-09] MEDS ORDERED: NITRO-BID 2% UD PACKETS TOP ONE (19:59)
[2020-11-09] MEDS ORDERED: BABY ASPIRIN 81 MG CHEW PO ONE (19:59)
[2020-11-09] MEDS ORDERED: BABY ASPIRIN 81 MG CHEW ONE (20:01)
[2020-11-09] MEDS ORDERED: Nitrostat 0.4 MG (ED) SL ONE (20:01)
[2020-11-09] MEDS ORDERED: NITRO-BID 2% UD PACKETS ONE (20:03)
[2020-11-09] MEDS: NORCO 7.5/325 MG TAB PO PRN (23:55)
[2020-11-10] MEDS ORDERED: Pepcid 20 MG PO SCH
[2020-11-10] MEDS: SYNTHROID 100 MCG PO SCH (05:49)
[2020-11-10] MEDS ORDERED: MORPHINE SULFATE 10 MG/ML IV ONE (06:00)
[2020-11-10] MEDS ORDERED: Zofran 4 MG/2 ML VIAL IV PRN (06:09)
--- NOTE | 2020-11-10 07:30 | PCM.SSS ---
History of Present Illness - Chief Complaint Chief Complaint: chest pain rule out History of Present Illness: is a 59 year old female pt of mine with morbid obesity, HTN, depression, narcolepsy, and anxiety who was admitted through ER last night with chest pain, to rule out PR. She started having sudden substernal/L upper and R upper chest pressure, 5-6/10, at approx 1500 yesterday. Denies diaphoresis but did have SOB. Just "felt weird." Denies palpitations or nausea. She told the ER doctor she had been having issues since starting metoprolol; she told me she has fatigue, nausea, and chest heaviness with it. We stopped lisinopril d/t cough and started metoprolol, but that was in Mar 2020. Pt used to see Dr. David Sim and had a stress test several yrs ago; moiz arredondo was not able to tolerate the chemical test at that time so walked on the treadmill. Per pt report she was released by him. Thinks she had an echo about a year ago. - Review of Systems Respiratory: Short Of Breath Cardiac: Chest Pain, Edema (recent LE edema, attributes to hot weather) Abdominal/Gastrointestinal: Abdominal Pain (intermittent, RUQ, 2-3/10 started yesterday) Psychological: No Anxiety, No Depression All Other Systems: Reviewed and Negative Medications & Allergies Home Medications: Home Medication List Furosemide [Lasix] 40 mg PO DAILY 07/15/13 [History Confirmed 11/09/20] Modafinil [Provigil] 200 mg PO DAILY 07/15/13 [History Confirmed 11/09/20] Famotidine 20 mg [Pepcid 20 MG] 20 mg PO BID 10/25/16 [History Confirmed 11/09/20] Levothyroxine Sodium 100 Mcg [Synthroid 100 Mcg] 2 tab PO QAM 10/25/16 [History Confirmed 11/09/20] Hydrocodone Bit/Acetaminophen [Hydrocodon-Acetaminoph 7.5-325] 1 each PO QID PRN #120 tablet 10/30/16 [Rx Confirmed 11/09/20] Amlodipine Besylate 10 mg PO DAILY 11/09/20 [History Confirmed 11/09/20] Diclofenac Sodium [Voltaren] 75 mg PO DAILY 11/09/20 [History Confirmed 11/09/20] Metoprolol Tartrate 50 mg [Lopressor 50 MG] 25 mg PO QID 11/09/20 [History Confirmed 11/09/20] Topiramate [Topamax] 50 mg PO DAILY 11/09/20 [History Confirmed 11/09/20] Allergies/Adverse Reactions: Allergies Allergy/AdvReac Type Severity Reaction Status Date / Time coconut Allergy Severe Anaphylactic Verified 11/09/20 23:20 Reaction codeine [Codeine] Allergy Mild Shortness Verified 11/09/20 18:02 of Breath latex Allergy Mild Rash Verified 11/09/20 18:02 - Past Medical History Past Medical History: Yes Neurological History: Other ENT History: No Pertinent History Cardiac History: Hypertension Respiratory History: No Pertinent History Endocrine Medical History: Hypothyroidism Musculoskelatal History: Arthritis GI Medical History: Diverticulosis History: No Pertinent History Pyscho-Social History: Anxiety Reproductive Disorders: No Pertinent History Comment: Narcolepsy - Female History Are you now?: No - Past Surgical History Past Surgical History: Yes Neuro Surgical History: No Pertinent History Cardiac History: No Pertinent History Respiratory Surgery: No Pertinent History GI Surgical History: Cholecystectomy Genitourinary Surgical Hx: No Pertinent History Musculskeletal Surgical Hx: Orthopedic Surgery Female Surgical History: Hysterectomy Other Surgical History: SINUS SURGERY - Social History Smoking Status: Never smoker Exposure to second hand smoke: No Alcohol: None Drug Use: none - Physical Exam Vital Signs: Vital Signs - 24 hr Temp Pulse Resp BP Pulse Ox 11/10/20 06:52 75 137/63 98 11/10/20 03:45 97.7 F 71 19 108/56 94 L 11/09/20 23:20 97 11/09/20 23:03 98.1 F 85 20 171/91 96 11/09/20 22:57 98.1 F 85 171/91 97 11/09/20 22:00 86 16 169/100 95 11/09/20 21:00 87 20 173/98 98 11/09/20 20:04 80 18 173/112 96 11/09/20 19:10 80 16 172/108 97 11/09/20 18:50 76 18 157/103 97 11/09/20 18:08 96 11/09/20 17:54 97.9 F 84 180/108 96 General Appearance: no apparent distress, obese Neurologic Exam: oriented x 3, cooperative Eye Exam: eyes nml inspection Ears, Nose, Throat Exam: moist mucous membranes Neck Exam: normal inspection, non-tender, No lymphadenopathy Respiratory Exam: normal breath sounds, lungs clear, No crackles/rales, No rhonchi, No wheezing Cardiovascular Exam: regular rate/rhythm, normal heart sounds, No murmur Gastrointestinal/Abdomen Exam: soft, normal bowel sounds, No tenderness, No distention, No mass, No guarding, No rebound Back Exam: normal inspection, No rash Extremity Exam: normal inspection, No pedal edema, No swelling Skin Exam: normal color, warm, dry, No rash Results - Labs Lab/Micro Results: Lab Results-Last 24 Hours 11/09/20 11/09/20 11/09/20 Range/Units 18:00 18:00 18:00 WBC 12.8 H (4.0-10.5) K/mm3 RBC 5.33 (4.1-5.4) M/mm3 Hgb 14.6 (12.0-16.0) gm/dl Hct 45.0 (35-47) % MCV 84.4 (78-100) fl MCH 27.4 (26-32) pg MCHC 32.4 (32-36) g/dl RDW 13.6 (11.5-14.0) % Plt Count 281 (150-450) K/mm3 MPV 10.0 (7.5-11.0) fl Gran % 58.2 (36.0-66.0) % Eos # (Auto) 0.22 (0-0.5) Absolute Lymphs (auto) 4.13 (1.0-4.6) Absolute Monos (auto) 0.94 (0.0-1.3) Lymphocytes % 32.3 (24.0-44.0) % Monocytes % 7.3 (0.0-12.0) % Eosinophils % 1.7 (0.00-5.0) % Basophils % 0.5 (0.0-0.4) % Absolute Granulocytes 7.45 H (1.4-6.9) Basophils # 0.06 (0-0.4) Sodium 140 (137-145) mmol/L Potassium 3.2 L (3.5-5.1) mmol/L Chloride 106 (98-107) mmol/L Carbon Dioxide 25 (22-30) mmol/L Anion Gap 11.9 (5-15) MEQ/L BUN 11 (7-17) mg/dL Creatinine 0.59 (0.52-1.04) mg/dL Estimated GFR > 60.0 ML/MIN Glucose 126 H (74-106) mg/dL Calcium 9.0 (8.4-10.2) mg/dL Magnesium 2.1 (1.6-2.3) mg/dL Total Bilirubin 0.40 (0.2-1.3) mg/dL AST 38 H (14-36) U/L ALT 38 H (0-35) U/L Alkaline Phosphatase 105 (38-126) U/L Troponin I < 0.012 (0.000-0.034) ng/mL Serum Total Protein 7.3 (6.3-8.2) g/dL Albumin 4.3 (3.5-5.0) g/dL Urine Color (YELLOW) Urine Appearance (CLEAR) Urine pH (5-6) Ur Specific [place] (1.005-1.025) Urine Protein (Negative) Urine Ketones (NEGATIVE) Urine Blood (0-5) Randall/ul Urine Nitrite (NEGATIVE) Urine Bilirubin (NEGATIVE) Urine Urobilinogen (0-1) mg/dL Ur Leukocyte Esterase (NEGATIVE) Urine WBC (Auto) (0-5) /HPF Urine RBC (Auto) (0-2) /HPF U Epithel Cells (Auto) (FEW) /HPF Urine Bacteria (Auto) (NEGATIVE) /HPF Urine Mucus (Auto) (NEGATIVE) /HPF Urine Culture Reflexed (NO) Urine Glucose (NEGATIVE) mg/dL SARS-CoV-2 (PCR) (NEGATIVE) 11/09/20 11/09/20 11/09/20 Range/Units 18:08 20:58 21:35 WBC (4.0-10.5) K/mm3 RBC (4.1-5.4) M/mm3 Hgb (12.0-16.0) gm/dl Hct (35-47) % MCV (78-100) fl MCH (26-32) pg MCHC (32-36) g/dl RDW (11.5-14.0) % Plt Count (150-450) K/mm3 MPV (7.5-11.0) fl Gran % (36.0-66.0) % Eos # (Auto) (0-0.5) Absolute Lymphs (auto) (1.0-4.6) Absolute Monos (auto) (0.0-1.3) Lymphocytes % (24.0-44.0) % Monocytes % (0.0-12.0) % Eosinophils % (0.00-5.0) % Basophils % (0.0-0.4) % Absolute Granulocytes (1.4-6.9) Basophils # (0-0.4) Sodium (137-145) mmol/L Potassium (3.5-5.1) mmol/L Chloride (98-107) mmol/L Carbon Dioxide (22-30) mmol/L Anion Gap (5-15) MEQ/L BUN (7-17) mg/dL Creatinine (0.52-1.04) mg/dL Estimated GFR ML/MIN Glucose (74-106) mg/dL Calcium (8.4-10.2) mg/dL Magnesium (1.6-2.3) mg/dL Total Bilirubin (0.2-1.3) mg/dL AST (14-36) U/L ALT (0-35) U/L Alkaline Phosphatase (38-126) U/L Troponin I < 0.012 (0.000-0.034) ng/mL Serum Total Protein (6.3-8.2) g/dL Albumin (3.5-5.0) g/dL Urine Color STRAW (YELLOW) Urine Appearance CLEAR (CLEAR) Urine pH 6.0 (5-6) Ur Specific [place] 1.006 (1.005-1.025) Urine Protein NEGATIVE (Negative) Urine Ketones NEGATIVE (NEGATIVE) Urine Blood NEGATIVE (0-5) Randall/ul Urine Nitrite NEGATIVE (NEGATIVE) Urine Bilirubin NEGATIVE (NEGATIVE) Urine Urobilinogen NEGATIVE (0-1) mg/dL Ur Leukocyte Esterase SMALL (NEGATIVE) Urine WBC (Auto) 6-10 (0-5) /HPF Urine RBC (Auto) 0-2 (0-2) /HPF U Epithel Cells (Auto) RARE (FEW) /HPF Urine Bacteria (Auto) NONE (NEGATIVE) /HPF Urine Mucus (Auto) SLIGHT (NEGATIVE) /HPF Urine Culture Reflexed NO (NO) Urine Glucose NEGATIVE (NEGATIVE) mg/dL SARS-CoV-2 (PCR) NEGATIVE (NEGATIVE) 11/10/20 Range/Units 03:30 WBC (4.0-10.5) K/mm3 RBC (4.1-5.4) M/mm3 Hgb (12.0-16.0) gm/dl Hct (35-47) % MCV (78-100) fl MCH (26-32) pg MCHC (32-36) g/dl RDW (11.5-14.0) % Plt Count (150-450) K/mm3 MPV (7.5-11.0) fl Gran % (36.0-66.0) % Eos # (Auto) (0-0.5) Absolute Lymphs (auto) (1.0-4.6) Absolute Monos (auto) (0.0-1.3) Lymphocytes % (24.0-44.0) % Monocytes % (0.0-12.0) % Eosinophils % (0.00-5.0) % Basophils % (0.0-0.4) % Absolute Granulocytes (1.4-6.9) Basophils # (0-0.4) Sodium (137-145) mmol/L Potassium (3.5-5.1) mmol/L Chloride (98-107) mmol/L Carbon Dioxide (22-30) mmol/L Anion Gap (5-15) MEQ/L BUN (7-17) mg/dL Creatinine (0.52-1.04) mg/dL Estimated GFR ML/MIN Glucose (74-106) mg/dL Calcium (8.4-10.2) mg/dL Magnesium (1.6-2.3) mg/dL Total Bilirubin (0.2-1.3) mg/dL AST (14-36) U/L ALT (0-35) U/L Alkaline Phosphatase (38-126) U/L Troponin I < 0.012 (0.000-0.034) ng/mL Serum Total Protein (6.3-8.2) g/dL Albumin (3.5-5.0) g/dL Urine Color (YELLOW) Urine Appearance (CLEAR) Urine pH (5-6) Ur Specific [place] (1.005-1.025) Urine Protein (Negative) Urine Ketones (NEGATIVE) Urine Blood (0-5) Randall/ul Urine Nitrite (NEGATIVE) Urine Bilirubin (NEGATIVE) Urine Urobilinogen (0-1) mg/dL Ur Leukocyte Esterase (NEGATIVE) Urine WBC (Auto) (0-5) /HPF Urine RBC (Auto) (0-2) /HPF U Epithel Cells (Auto) (FEW) /HPF Urine Bacteria (Auto) (NEGATIVE) /HPF Urine Mucus (Auto) (NEGATIVE) /HPF Urine Culture Reflexed (NO) Urine Glucose (NEGATIVE) mg/dL SARS-CoV-2 (PCR) (NEGATIVE) - Radiology Impressions Radiology Exams & Impressions: Radiology Procedures Category Date Time Status CHEST 1 VIEW (PORTABLE) Stat Exams 11/09/20 18:06 Taken Assessment/Plan (1) Chest pain Current Visit: Yes Status: Acute Assessment & Plan: Last troponin recently drawn. Lipid panel and other a.m. labs pending. If her pain is resolved and all troponins are normal, likely home today. Would like for her to get a repeat echocardiogram today if not done in the past 1 year. Outpatient stress test (will determine the type after seeing what the last stress test utilized). Code(s): R07.9 - CHEST PAIN, UNSPECIFIED (2) Morbid obesity Current Visit: Yes Status: Acute Code(s): E66.01 - MORBID (SEVERE) OBESITY DUE TO EXCESS CALORIES (3) Essential hypertension Current Visit: No Status: Acute Assessment & Plan: The metoprolol may be causing some fatigue. Consider changing to clonidine. Also consider just changing back to lisinopril since it is apparently not causing the cough. Code(s): I10 - ESSENTIAL (PRIMARY) HYPERTENSION (4) Chronic cough Current Visit: Yes Status: Acute Assessment & Plan: Will continue working up outpatient. Code(s): R05 - COUGH Hospital Summary - Hospital Course Hospital Course: Pt with HTN and morbid obesity admitted for CP/r/o PR. Troponins neg so far; if continue to be neg, will d/c to home today. Get echo today if not done in past 1 yr. Order OP stress test. She must f/u with me in office; will need to discuss changing BP meds at that time (on metoprolol 50mg po BID since Mar 2020 with good BP control; had stopped lisinopril d/t concerns with cough but it is still present). - Vitals & Intake/Output Vital Signs: Vital Signs Temperature 97.7 F 11/10/20 03:45 Pulse Rate 75 11/10/20 06:52 Respiratory Rate 19 11/10/20 03:45 Blood Pressure 137/63 11/10/20 06:52 O2 Sat by Pulse Oximetry 98 11/10/20 06:52 Intake & Output: Intake & Output 11/07/20 11/08/20 11/09/20 11/10/20 11:59 11:59 11:59 11:59 Intake Total 120 Balance 120 Weight 159.1 kg - Lab Result Diagrams: 11/09/20 18:00 11/09/20 18:00 Lab Results-Last 24 Hrs: Lab Results-Last 24 Hours 11/09/20 11/09/20 11/09/20 Range/Units 18:00 18:00 18:00 WBC 12.8 H (4.0-10.5) K/mm3 RBC 5.33 (4.1-5.4) M/mm3 Hgb 14.6 (12.0-16.0) gm/dl Hct 45.0 (35-47) % MCV 84.4 (78-100) fl MCH 27.4 (26-32) pg MCHC 32.4 (32-36) g/dl RDW 13.6 (11.5-14.0) % Plt Count 281 (150-450) K/mm3 MPV 10.0 (7.5-11.0) fl Gran % 58.2 (36.0-66.0) % Eos # (Auto) 0.22 (0-0.5) Absolute Lymphs (auto) 4.13 (1.0-4.6) Absolute Monos (auto) 0.94 (0.0-1.3) Lymphocytes % 32.3 (24.0-44.0) % Monocytes % 7.3 (0.0-12.0) % Eosinophils % 1.7 (0.00-5.0) % Basophils % 0.5 (0.0-0.4) % Absolute Granulocytes 7.45 H (1.4-6.9) Basophils # 0.06 (0-0.4) Sodium 140 (137-145) mmol/L Potassium 3.2 L (3.5-5.1) mmol/L Chloride 106 (98-107) mmol/L Carbon Dioxide 25 (22-30) mmol/L Anion Gap 11.9 (5-15) MEQ/L BUN 11 (7-17) mg/dL Creatinine 0.59 (0.52-1.04) mg/dL Estimated GFR > 60.0 ML/MIN Glucose 126 H (74-106) mg/dL Calcium 9.0 (8.4-10.2) mg/dL Magnesium 2.1 (1.6-2.3) mg/dL Total Bilirubin 0.40 (0.2-1.3) mg/dL AST 38 H (14-36) U/L ALT 38 H (0-35) U/L Alkaline Phosphatase 105 (38-126) U/L Troponin I < 0.012 (0.000-0.034) ng/mL Serum Total Protein 7.3 (6.3-8.2) g/dL Albumin 4.3 (3.5-5.0) g/dL Urine Color (YELLOW) Urine Appearance (CLEAR) Urine pH (5-6) Ur Specific [place] (1.005-1.025) Urine Protein (Negative) Urine Ketones (NEGATIVE) Urine Blood (0-5) Randall/ul Urine Nitrite (NEGATIVE) Urine Bilirubin (NEGATIVE) Urine Urobilinogen (0-1) mg/dL Ur Leukocyte Esterase (NEGATIVE) Urine WBC (Auto) (0-5) /HPF Urine RBC (Auto) (0-2) /HPF U Epithel Cells (Auto) (FEW) /HPF Urine Bacteria (Auto) (NEGATIVE) /HPF Urine Mucus (Auto) (NEGATIVE) /HPF Urine Culture Reflexed (NO) Urine Glucose (NEGATIVE) mg/dL SARS-CoV-2 (PCR) (NEGATIVE) 11/09/20 11/09/20 11/09/20 Range/Units 18:08 20:58 21:35 WBC (4.0-10.5) K/mm3 RBC (4.1-5.4) M/mm3 Hgb (12.0-16.0) gm/dl Hct (35-47) % MCV (78-100) fl MCH (26-32) pg MCHC (32-36) g/dl RDW (11.5-14.0) % Plt Count (150-450) K/mm3 MPV (7.5-11.0) fl Gran % (36.0-66.0) % Eos # (Auto) (0-0.5) Absolute Lymphs (auto) (1.0-4.6) Absolute Monos (auto) (0.0-1.3) Lymphocytes % (24.0-44.0) % Monocytes % (0.0-12.0) % Eosinophils % (0.00-5.0) % Basophils % (0.0-0.4) % Absolute Granulocytes (1.4-6.9) Basophils # (0-0.4) Sodium (137-145) mmol/L Potassium (3.5-5.1) mmol/L Chloride (98-107) mmol/L Carbon Dioxide (22-30) mmol/L Anion Gap (5-15) MEQ/L BUN (7-17) mg/dL Creatinine (0.52-1.04) mg/dL Estimated GFR ML/MIN Glucose (74-106) mg/dL Calcium (8.4-10.2) mg/dL Magnesium (1.6-2.3) mg/dL Total Bilirubin (0.2-1.3) mg/dL AST (14-36) U/L ALT (0-35) U/L Alkaline Phosphatase (38-126) U/L Troponin I < 0.012 (0.000-0.034) ng/mL Serum Total Protein (6.3-8.2) g/dL Albumin (3.5-5.0) g/dL Urine Color STRAW (YELLOW) Urine Appearance CLEAR (CLEAR) Urine pH 6.0 (5-6) Ur Specific [place] 1.006 (1.005-1.025) Urine Protein NEGATIVE (Negative) Urine Ketones NEGATIVE (NEGATIVE) Urine Blood NEGATIVE (0-5) Randall/ul Urine Nitrite NEGATIVE (NEGATIVE) Urine Bilirubin NEGATIVE (NEGATIVE) Urine Urobilinogen NEGATIVE (0-1) mg/dL Ur Leukocyte Esterase SMALL (NEGATIVE) Urine WBC (Auto) 6-10 (0-5) /HPF Urine RBC (Auto) 0-2 (0-2) /HPF U Epithel Cells (Auto) RARE (FEW) /HPF Urine Bacteria (Auto) NONE (NEGATIVE) /HPF Urine Mucus (Auto) SLIGHT (NEGATIVE) /HPF Urine Culture Reflexed NO (NO) Urine Glucose NEGATIVE (NEGATIVE) mg/dL SARS-CoV-2 (PCR) NEGATIVE (NEGATIVE) 11/10/20 Range/Units 03:30 WBC (4.0-10.5) K/mm3 RBC (4.1-5.4) M/mm3 Hgb (12.0-16.0) gm/dl Hct (35-47) % MCV (78-100) fl MCH (26-32) pg MCHC (32-36) g/dl RDW (11.5-14.0) % Plt Count (150-450) K/mm3 MPV (7.5-11.0) fl Gran % (36.0-66.0) % Eos # (Auto) (0-0.5) Absolute Lymphs (auto) (1.0-4.6) Absolute Monos (auto) (0.0-1.3) Lymphocytes % (24.0-44.0) % Monocytes % (0.0-12.0) % Eosinophils % (0.00-5.0) % Basophils % (0.0-0.4) % Absolute Granulocytes (1.4-6.9) Basophils # (0-0.4) Sodium (137-145) mmol/L Potassium (3.5-5.1) mmol/L Chloride (98-107) mmol/L Carbon Dioxide (22-30) mmol/L Anion Gap (5-15) MEQ/L BUN (7-17) mg/dL Creatinine (0.52-1.04) mg/dL Estimated GFR ML/MIN Glucose (74-106) mg/dL Calcium (8.4-10.2) mg/dL Magnesium (1.6-2.3) mg/dL Total Bilirubin (0.2-1.3) mg/dL AST (14-36) U/L ALT (0-35) U/L Alkaline Phosphatase (38-126) U/L Troponin I < 0.012 (0.000-0.034) ng/mL Serum Total Protein (6.3-8.2) g/dL Albumin (3.5-5.0) g/dL Urine Color (YELLOW) Urine Appearance (CLEAR) Urine pH (5-6) Ur Specific [place] (1.005-1.025) Urine Protein (Negative) Urine Ketones (NEGATIVE) Urine Blood (0-5) Randall/ul Urine Nitrite (NEGATIVE) Urine Bilirubin (NEGATIVE) Urine Urobilinogen (0-1) mg/dL Ur Leukocyte Esterase (NEGATIVE) Urine WBC (Auto) (0-5) /HPF Urine RBC (Auto) (0-2) /HPF U Epithel Cells (Auto) (FEW) /HPF Urine Bacteria (Auto) (NEGATIVE) /HPF Urine Mucus (Auto) (NEGATIVE) /HPF Urine Culture Reflexed (NO) Urine Glucose (NEGATIVE) mg/dL SARS-CoV-2 (PCR) (NEGATIVE) - Radiology Exams Ordered Rad Exams-Entire Visit: Radiology Procedures Category Date Time Status CHEST 1 VIEW (PORTABLE) Stat Exams 11/09/20 18:06 Taken - Discharge Disposition: Home, Self-Care Condition: Stable Prescriptions: No Action Furosemide [Lasix] 40 mg PO DAILY Modafinil [Provigil] 200 mg PO DAILY Levothyroxine Sodium 100 Mcg [Synthroid 100 Mcg] 2 tab PO QAM Famotidine 20 mg [Pepcid 20 MG] 20 mg PO BID Hydrocodone Bit/Acetaminophen [Hydrocodon-Acetaminoph 7.5-325] 1 each PO QID PRN #120 tablet PRN Reason: Pain Topiramate [Topamax] 50 mg PO DAILY Amlodipine Besylate 10 mg PO DAILY Metoprolol Tartrate 50 mg [Lopressor 50 MG] 25 mg PO QID Diclofenac Sodium [Voltaren] 75 mg PO DAILY Follow up with: SAUL LECHUGA [Primary Care Provider] -
--- NOTE | 2020-11-10 08:51 | XRAY ---
Indication: Cough and chest pressure. Comparison: None Portable apical lordotic chest clear. Heart upper limits normal for AP portable technique. Bony thorax intact. Impression: Nonacute chest.
[2020-11-10] MEDS ORDERED: NON-FORMULARY ITEM (Diclofenac Sodium [Voltaren] 75 MG) PO SCH (10:00)
[2020-11-10] MEDS: VOLTAREN 50 MG PO SCH (10:58)
[2020-11-10] MEDS: Pepcid 20 MG PO SCH ×2 (10:58→22:27)
[2020-11-10] MEDS: TOPIRAMATE PO SCH (10:58)
[2020-11-10] MEDS: Lopressor 25MG Tab PO SCH ×3 (17:00→22:27)
[2020-11-10] MEDS: NORVASC 5 MG PO SCH (17:13)
[2020-11-11] MEDS: NORCO 7.5/325 MG TAB PO PRN ×2 (01:11→11:41)
[2020-11-11] MEDS: SYNTHROID 100 MCG PO SCH (04:22)
[2020-11-11] MEDS: VOLTAREN 50 MG PO SCH (09:35)
[2020-11-11] MEDS: Lopressor 25MG Tab PO SCH ×2 (09:36→13:30)
[2020-11-11] MEDS: TOPIRAMATE PO SCH (09:36)
[2020-11-11] MEDS: Pepcid 20 MG PO SCH (09:36)
[2020-11-11] MEDS: NORVASC 5 MG PO SCH (09:36)
--- NOTE | 2020-11-11 11:39 | ECHO ---
DATE OF PROCEDURE: 11/10/2020 PROCEDURE: Complete two-dimensional echocardiogram with color Doppler and Spectral analysis. INDICATION: Chest pain. DESCRIPTION OF FINDINGS: The left ventricle is normal size with mild concentric left ventricular hypertrophy. Normal left ventricular systolic function with ejection fraction of 55 to 60%. Grade I diastolic dysfunction. The right ventricle is normal size with normal systolic function. The left atrium is normal size. The right atrium is normal size. Inferior vena cava is not well visualized. The aortic valve is trileaflet. There is no aortic stenosis. No aortic regurgitation. The mitral valve is morphologically normal with no mitral regurgitation. The tricuspid valve leaflets are thin and pliable. There is trivial tricuspid regurgitation. Unable to estimate right ventricular systolic pressure due to inadequate tricuspid regurgitant signal. The pulmonic valve is not well visualized. The aortic root is normal diameter. The ascending aorta is 2.6 cm. No pericardial effusion. IMPRESSION: 1) NORMAL LEFT VENTRICULAR SIZE WITH MILD LEFT VENTRICULAR HYPERTROPHY. 2) NORMAL LEFT VENTRICULAR SYSTOLIC FUNCTION WITH EJECTION FRACTION OF 55 TO 60%. 3) GRADE I DIASTOLIC DYSFUNCTION. 4) NORMAL RIGHT VENTRICULAR SYSTOLIC SIZE AND SYSTOLIC FUNCTION. 5) TRACE TRICUSPID REGURGITATION. 6) UNABLE TO ESTIMATE RIGHT VENTRICULAR SYSTOLIC PRESSURE. 7) NO PERICARDIAL EFFUSION.
[2020-11-11 11:45] VITALS: BP 119/58; PULSE 62; O2SAT 95
--- NOTE | 2020-11-11 12:35 | PCM.DS ---
Discharge Summary Date of Admission: 11/09/20 22:56 Admitting Physician: SAUL LECHUGA Primary Care Provider: SAUL LECHUGA Allergies Allergies coconut Allergy (Severe, Verified 11/09/20 23:20) Anaphylactic Reaction codeine [Codeine] Allergy (Mild, Verified 11/09/20 18:02) Shortness of Breath latex Allergy (Mild, Verified 11/09/20 18:02) Rash states "have a little on my waistband" Hospital Summary - Hospital Course Hospital Course: is a 59 year old female pt of mine with morbid obesity, HTN, depression, narcolepsy, and anxiety who was admitted through ER with chest pain, to rule out OR. She started having sudden substernal/L upper and R upper chest pressure, 5-6/10, at approx 1500 the day of admission. She had been having some cough and fatigue since starting metoprolol. Had some RUQ pain yesterday but it has resolved. Has some intermittent 2-3/10 chest pressure. Did not have cough without the metoprolol, but since restarting it, it has resumed. Pt had some chest pressure yesterday and had not restarted her BP meds, so was kept another night to restart the meds and watch her chest pain. Got echo yesterday and will get outpatient stress test. - Vitals & Intake/Output Vital Signs: Vital Signs Temperature 97.4 F 11/11/20 11:44 Pulse Rate 62 11/11/20 11:44 Respiratory Rate 18 11/11/20 11:44 Blood Pressure 119/58 11/11/20 11:44 O2 Sat by Pulse Oximetry 95 11/11/20 11:44 Intake & Output: Intake & Output 11/09/20 11/10/20 11/11/20 11/12/20 11:59 11:59 11:59 11:59 Intake Total 600 1780 Balance 600 1780 Weight 159.1 kg - Lab Result Diagrams: 11/09/20 18:00 11/09/20 18:00 Lab Results-Last 24 Hrs: Lab Results-Last 24 Hours 11/11/20 Range/Units 04:52 Troponin I < 0.012 (0.000-0.034) ng/mL - Radiology Exams Ordered Rad Exams-Entire Visit: Radiology Procedures Category Date Time Status CHEST 1 VIEW (PORTABLE) Stat Exams 11/09/20 18:06 Completed ECHO W/2D AND DOPPLER [US] Routine Exams 11/10/20 11:00 Draft - Procedures and Test Procedures and Tests throughout Hospitalization: Therapy Orders & Screens 11/10/20 10:47 STRESS TEST [Schedule Outpt Stress Test] ROUTINE Comment: Diagnosis: chest pain rule out Schedule Outpt Stress Test: Cardiolyte Stress Test Cardiolite Stress Test: Cardiolite Lexiscan 11/10/20 11:03 EKG STAT Comment: Diagnosis: chest pain rule out Discharge Exam General Appearance: no apparent distress, alert, obese Neurologic Exam: oriented x 3, cooperative Eye Exam: eyes nml inspection Ears, Nose, Throat Exam: moist mucous membranes Respiratory Exam: normal breath sounds, lungs clear, No respiratory distress, No crackles/rales, No rhonchi, No wheezing Cardiovascular Exam: regular rate/rhythm, normal heart sounds, No murmur Gastrointestinal/Abdomen Exam: soft, normal bowel sounds, No tenderness, No distention, No mass, No guarding, No rebound Extremity Exam: swelling (nonpitting edema as usual) Skin Exam: normal color, warm, dry, No rash Final Diagnosis/Problem List - Final Discharge Diagnosis/Problem (1) Chest pain Current Visit: Yes Status: Acute Assessment & Plan: basically resolved, although has some recurrent pressure that is atypical. Outpatient stress test. Home with nitro. If persistent or severe, pt has been instructed to go to ER. Code(s): R07.9 - CHEST PAIN, UNSPECIFIED (2) Morbid obesity Current Visit: Yes Status: Chronic Code(s): E66.01 - MORBID (SEVERE) OBESITY DUE TO EXCESS CALORIES (3) Essential hypertension Current Visit: No Status: Acute Assessment & Plan: change metoprolol to coreg. Code(s): I10 - ESSENTIAL (PRIMARY) HYPERTENSION (4) Chronic cough Current Visit: Yes Status: Chronic Code(s): R05 - COUGH - Discharge Disposition: Home, Self-Care Condition: Good Prescriptions: New Carvedilol 3.125 mg [Coreg 3.125 MG] 3.125 mg PO BID #60 tablet Continue Furosemide [Lasix] 40 mg PO DAILY Modafinil [Provigil] 200 mg PO DAILY Levothyroxine Sodium 100 Mcg [Synthroid 100 Mcg] 2 tab PO QAM Famotidine 20 mg [Pepcid 20 MG] 20 mg PO BID Hydrocodone Bit/Acetaminophen [Hydrocodon-Acetaminoph 7.5-325] 1 each PO QID PRN #120 tablet PRN Reason: Pain Topiramate [Topamax] 50 mg PO DAILY Amlodipine Besylate 10 mg PO DAILY Diclofenac Sodium [Voltaren] 75 mg PO DAILY Discontinued Metoprolol Tartrate 50 mg [Lopressor 50 MG] 25 mg PO QID Instructions: Chest Pain (DC) Additional Instructions: Patient is scheduled for Stress test at [facility] on October at 06:30 a.m. Follow up with: SAUL LECHUGA [Primary Care Provider] - 11/17/20 9:30 am Forms: Discharge Instructions, Patient Portal Information
== END 2020-11-11 13:20 | disposition home or self-care (01) ==
LOC: ED 17:53 → MED SURG 22:56
PROVIDERS: ADMIT Family Medicine; ATTEND Family Medicine
DX: R07.9 Chest pain, unspecified (principal); R06.02 Shortness of breath; R53.83 Other fatigue; Z79.899 Other long term (current) drug therapy; I10 Essential (primary) hypertension; E66.01 Morbid (severe) obesity due to excess calories; F41.9 Anxiety disorder, unspecified; G47.419 Narcolepsy without cataplexy; R05 Cough; E03.9 Hypothyroidism, unspecified; Z20.828 Contact with and (suspected) exposure to other viral communicable diseases
CPT/HCPCS: 36000; 36415; 71045; 80053; 81001; 83735; 84484; 85025; 93005; 93041; 93268; 93306; 94760; 99285; G0378; U0003; J2270; J2405; A9270-GY

== ENCOUNTER 2021-03-18 13:44 | Emergency (ER) | payer MEDICARE ==
[2021-03-18 14:26] LABS: Absolute Neutrophil Ct (ANC) 6.24 (1.4-6.9); BASOPHIL % 0.3 % (0.0-0.4); Basophil (Absolute #) 0.03 (0-0.4); Eosinophil % 1.3 % (0.00-5.0); Eosinophil (Absolute #) 0.14 (0-0.5); Hematocrit 45.8 % (35-47); Hemoglobin 15.2 gm/dl (12.0-16.0); Lymphocyte (Absolute #) 3.51 (1.0-4.6); Lymphocytes % 32.9 % (24.0-44.0); Mean Corpuscular Hemoglobin 28.2 pg (26-32); Mean Corpuscular Hgb Concent. 33.2 g/dl (32-36); Mean Platelet Volume 9.8 fl (7.5-11.0); Monocyte (Absolute #) 0.76 (0.0-1.3); Monocytes % 7.1 % (0.0-12.0); Neutrophil % 58.4 % (36.0-66.0); Platelet Count 251 K/mm3 (150-450); Red Blood Count 5.39 M/mm3 (4.1-5.4); Red Cell Distribution Width 13.4 % (11.5-14.0); White Blood Count 10.7 K/mm3 (4.0-10.5)
[2021-03-18 14:43] LABS: ALBUMIN 4.5 g/dL (3.5-5.0); ALKALINE PHOSPHATASE 98 U/L (38-126); BLOOD UREA NITROGEN 9 mg/dL (7-17); CHLORIDE 102 mmol/L (98-107); Calcium 9.6 mg/dL (8.4-10.2); Carbon Dioxide 28 mmol/L (22-30); Creatinine 1 0.82 mg/dL (0.52-1.04); EST GLOMERULAR FILTRATION RATE > 60.0 ML/MIN; Glucose 132 mg/dL (74-106); Potassium 3.7 mmol/L (3.5-5.1); SGOT/AST 38 U/L (14-36); SGPT/ALT 40 U/L (0-35); SODIUM 142 mmol/L (137-145); Total Protein 7.5 g/dL (6.3-8.2)
--- NOTE | 2021-03-18 14:47 | ERPHSYRPT ---
- History of Present Illness Source: patient Patient Subjective Stated Complaint: Hypertension Triage Nursing Assessment: Patient ambulated back to ED and transferred self to bed. Patient A+O x3. Patient's skin pink, warm and dry. Patient states she called Dr. Oneill's office due to her blood pressure increasing the past 4 days around 5p-6p and was told to come to ED for eval. Patient denies pain or discomfort or SOB. Patient states on February 14 she was started on Losarten and has been having trouble since. Physician History: 60 yo wf w elevated BP x 2 days. Pt states that BP spikes between 17:00-18:00 while making dinner. She denies FERNANDES/focal weakness/chest pain /dyspnea/N/V/D/fever/cough. Pt is on Norvasc/Carvedalol/Losartan. Timing/Duration: day(s) (Last 3 days) Severity: mild Modifying Factors: Improves With: nothing Associated Symptoms: No nausea, No vomiting, No abdominal pain, No shortness of breath, No heartburn, No diaphoresis, No cough, No chills, No chest pain, No fever, No headaches, No loss of appetite, No malaise, No rash, No syncope, No seizure, No weakness Allergies/Adverse Reactions: coconut Allergy (Severe, Verified 03/18/21 13:54) Anaphylactic Reaction codeine [Codeine] Allergy (Mild, Verified 03/18/21 13:54) Shortness of Breath latex Allergy (Mild, Verified 03/18/21 13:54) Rash states "have a little on my waistband" Home Medications: Furosemide [Lasix] 40 mg PO DAILY 07/15/13 [History] Modafinil [Provigil] 200 mg PO DAILY 07/15/13 [History] Famotidine 20 mg [Pepcid 20 MG] 20 mg PO BID 10/25/16 [History] Levothyroxine Sodium 100 Mcg [Synthroid 100 Mcg] 2 tab PO QAM 10/25/16 [History] Amlodipine Besylate 10 mg PO DAILY 11/09/20 [History] Topiramate [Topamax] 50 mg PO DAILY 11/09/20 [History] Losartan Potassium 1 tab PO DAILY 03/18/21 [History] Hx Tetanus, Diphtheria Vaccination/Date Given: Yes Hx Influenza Vaccination/Date Given: Yes Hx Pneumococcal Vaccination/Date Given: No Immunizations Up to Date: Yes Travel Risk - International Travel Have you traveled outside of the country in past 3 weeks: No - Coronavirus Screening Are you exhibiting any of the following symptoms?: No Close contact with a COVID-19 positive Pt in past 14-21 Days: No - Vaccine Status Have you recieved a Covid-19 vaccination: Yes Bias Binding Folder: Moderna - Vaccination Dates Date of 2cond Vaccination (if applicable): January 2021 - Review of Systems Constitutional: No Symptoms Eyes: No Symptoms Ears, Nose, & Throat: No Symptoms Respiratory: No Symptoms Cardiac: No Symptoms Abdominal/Gastrointestinal: No Symptoms Genitourinary Symptoms: No Symptoms Musculoskeletal: No Symptoms Skin: No Symptoms Neurological: No Symptoms Psychological: No Symptoms Endocrine: No Symptoms Hematologic/Lymphatic: No Symptoms Immunological/Allergic: No Symptoms - Past Medical History Pertinent Past Medical History: Yes Neurological History: Other ENT History: No Pertinent History Cardiac History: Hypertension Respiratory History: No Pertinent History Endocrine Medical History: Hypothyroidism Musculoskeletal History: Arthritis GI Medical History: Diverticulosis History: No Pertinent History Psycho-Social History: Anxiety Female Reproductive Disorders: No Pertinent History Other Medical History: Narcolepsy - Past Surgical History Past Surgical History: Yes Neuro Surgical History: No Pertinent History Cardiac: No Pertinent History Respiratory: No Pertinent History Gastrointestinal: Cholecystectomy Genitourinary: No Pertinent History Musculoskeletal: Orthopedic Surgery Female Surgical History: Hysterectomy Other Surgical History: SINUS SURGERY - Social History Smoking Status: Never smoker Exposure to second hand smoke: Yes Drug Use: none Patient Lives Alone: No Significant Family History: no pertinent family hx - Female History Hx Last Menstrual Period: hysterectomy Hx Now: No - Nursing Vital Signs Nursing Vital Signs: Initial Vital Signs Temperature 96.8 F 03/18/21 13:55 Pulse Rate 90 03/18/21 13:55 Respiratory Rate 18 03/18/21 13:55 Blood Pressure 180/104 03/18/21 13:55 O2 Sat by Pulse Oximetry 97 03/18/21 13:55 Pain Scale Pain Intensity 0 Hypertensive - Physical Exam General Appearance: no apparent distress Eye Exam: PERRL/EOMI, eyes nml inspection Ears, Nose, Throat Exam: normal ENT inspection, TMs normal, pharynx normal, moist mucous membranes Neck Exam: normal inspection, non-tender, supple, full range of motion, No meningismus, No mass, No Brudzinski, No Kernig's, No carotid bruit Respiratory Exam: normal breath sounds, lungs clear, airway intact, No respiratory distress Cardiovascular Exam: regular rate/rhythm, normal heart sounds, normal peripheral pulses, No murmur Gastrointestinal/Abdomen Exam: soft, normal bowel sounds, No tenderness Back Exam: normal inspection, normal range of motion, CVA tenderness Extremity Exam: normal inspection, normal range of motion Neurologic Exam: alert, oriented x 3, cooperative, records assistant II-XII nml as tested, normal mood/affect, nml station & gait, sensation nml, No motor deficits, No sensory deficit Skin Exam: normal color, warm, dry Lymphatic Exam: adenopathy SpO2 Interpretation: normal SpO2: 97 O2 Delivery: Room Air - Course Nursing assessment & vital signs reviewed: Yes EKG Interpreted by Me: RATE (NSR/R89/Normal QT-QTc/Qwaves 3 and AVF/Low voltage) Ordered Tests: Active Orders 24 hr Category Date Time Status EKG-ER Only STAT Care 03/18/21 14:05 Active CBC W DIFF Stat Lab 03/18/21 14:14 Completed CMP Stat Lab 03/18/21 14:14 Completed TROPONIN Q3H Lab 03/18/21 14:14 Completed TROPONIN Q3H Lab 03/18/21 17:15 Ordered TROPONIN Q3H Lab 03/18/21 20:15 Ordered TROPONIN Q3H Lab 03/18/21 23:15 Ordered TROPONIN Q3H Lab 03/19/21 02:15 Ordered Lab/Rad Data: Laboratory Result Diagrams 03/18/21 14:14 03/18/21 14:14 Laboratory Results 03/18/21 03/18/21 03/18/21 Range/Units 14:14 14:14 14:14 WBC 10.7 H (4.0-10.5) K/mm3 RBC 5.39 (4.1-5.4) M/mm3 Hgb 15.2 (12.0-16.0) gm/dl Hct 45.8 (35-47) % MCV 85.0 (78-100) fl MCH 28.2 (26-32) pg MCHC 33.2 (32-36) g/dl RDW 13.4 (11.5-14.0) % Plt Count 251 (150-450) K/mm3 MPV 9.8 (7.5-11.0) fl Gran % 58.4 (36.0-66.0) % Eos # (Auto) 0.14 (0-0.5) Absolute Lymphs (auto) 3.51 (1.0-4.6) Absolute Monos (auto) 0.76 (0.0-1.3) Lymphocytes % 32.9 (24.0-44.0) % Monocytes % 7.1 (0.0-12.0) % Eosinophils % 1.3 (0.00-5.0) % Basophils % 0.3 (0.0-0.4) % Absolute Granulocytes 6.24 (1.4-6.9) Basophils # 0.03 (0-0.4) Sodium 142 (137-145) mmol/L Potassium 3.7 (3.5-5.1) mmol/L Chloride 102 (98-107) mmol/L Carbon Dioxide 28 (22-30) mmol/L Anion Gap 16.0 H (5-15) MEQ/L BUN 9 (7-17) mg/dL Creatinine 0.82 (0.52-1.04) mg/dL Estimated GFR > 60.0 ML/MIN Glucose 132 H (74-106) mg/dL Calcium 9.6 (8.4-10.2) mg/dL Total Bilirubin 0.80 (0.2-1.3) mg/dL AST 38 H (14-36) U/L ALT 40 H (0-35) U/L Alkaline Phosphatase 98 (38-126) U/L Troponin I < 0.012 (0.000-0.034) ng/mL Serum Total Protein 7.5 (6.3-8.2) g/dL Albumin 4.5 (3.5-5.0) g/dL - Progress Progress Note: 03/18/21 14:55 Clonidine patch 0.1mg applied Counseled pt/family regarding: lab results, diagnosis, need for follow-up - Departure Departure Disposition: Home Clinical Impression: Hypertension Condition: Stable Critical Care Time: No Referrals: SAUL LOPEZ [Primary Care Provider] - Instructions: Malignant Hypertension (DC) Additional Instructions: Follow up with Dr. Oneill next week Keep Clonidine patch on for 1 week Return to ER for focal weakness/chest pain/shortness of breath
[2021-03-18] MEDS ORDERED: Catapres 0.1 MG PO ONE (14:53)
[2021-03-18] MEDS ORDERED: Catapres-TTS 1 PATCH TOP SCH (15:00)
[2021-03-18 15:12] VITALS: BP 149/84; PULSE 74; O2SAT 96
== END 2021-03-18 15:18 | disposition home or self-care (01) ==
LOC: ED 13:44
DX: I10 Essential (primary) hypertension (principal)
CPT/HCPCS: 36415; 80053; 84484; 85025; 93005; 99284; A9270-GY

== ENCOUNTER 2021-06-12 10:36 | Emergency (ER) | payer MEDICARE ==
--- NOTE | 2021-06-12 10:52 | ERPHSYRPT ---
- History of Present Illness Time Seen by Provider: 06/12/21 10:50 Source: patient Exam Limitations: no limitations Patient Subjective Stated Complaint: cough Triage Nursing Assessment: Patient ambulated back to ED and transferred self to bed. Patient A+O X3. Patient's skin pink, warm and dry. Patient complains of sore throat, cough, occasional SOB, and diarrhea for 2 days. Patient states cough is productive with thick white mucus. Lungs clear a/p lissette. Patient states her grandson is positive for strep throat and she has been around him. Physician History: Patient is a 60-year-old white female who has a grandson who has been positive for strep who presents with a complaint of being sick for 2 days with a cough which is minimally productive but when productive produces white sputum she denies any fever she does have a sore throat she did have a COVID-vaccine. She has had some diarrhea but no nausea or vomiting. Her past medical history is negative other than hypertension. Allergies/Adverse Reactions: coconut Allergy (Severe, Verified 06/12/21 10:47) Anaphylactic Reaction codeine [Codeine] Allergy (Mild, Verified 06/12/21 10:47) Shortness of Breath latex Allergy (Mild, Verified 06/12/21 10:47) Rash states "have a little on my waistband" Home Medications: Furosemide [Lasix] 40 mg PO DAILY 07/15/13 [History] Modafinil [Provigil] 200 mg PO DAILY 07/15/13 [History] Famotidine 20 mg [Pepcid 20 MG] 20 mg PO BID 10/25/16 [History] Levothyroxine Sodium 100 Mcg [Synthroid 100 Mcg] 2 tab PO QAM 10/25/16 [History] Amlodipine Besylate 10 mg PO DAILY 11/09/20 [History] Topiramate [Topamax] 50 mg PO DAILY 11/09/20 [History] Losartan Potassium 1 tab PO DAILY 03/18/21 [History] Hx Tetanus, Diphtheria Vaccination/Date Given: Yes Hx Influenza Vaccination/Date Given: Yes Hx Pneumococcal Vaccination/Date Given: No Immunizations Up to Date: Yes Travel Risk - International Travel Have you traveled outside of the country in past 3 weeks: No - Coronavirus Screening Are you exhibiting any of the following symptoms?: Yes Symptoms: Cough: New Onset, Shortness of Breath, Vomiting/Diarrhea Close contact with a COVID-19 positive Pt in past 14-21 Days: No - Vaccine Status Have you recieved a Covid-19 vaccination: Yes [place] Program Technician: Moderna - Vaccination Dates Date of 2cond Vaccination (if applicable): January 2021 - Review of Systems Constitutional: No Fever, No Chills Eyes: No Symptoms Ears, Nose, & Throat: Throat Pain, Throat Swelling, Painful Swallowing Respiratory: Cough, No Dyspnea Cardiac: No Chest Pain, No Edema, No Syncope Abdominal/Gastrointestinal: Diarrhea, No Abdominal Pain, No Nausea, No Vomiting Genitourinary Symptoms: No Dysuria Musculoskeletal: No Back Pain, No Neck Pain Skin: No Rash Neurological: No Dizziness, No Focal Weakness, No Sensory Changes Psychological: No Symptoms Endocrine: No Symptoms All Other Systems: Reviewed and Negative - Past Medical History Pertinent Past Medical History: Yes Neurological History: Other ENT History: No Pertinent History Cardiac History: Hypertension Respiratory History: No Pertinent History Endocrine Medical History: Hypothyroidism Musculoskeletal History: Arthritis GI Medical History: Diverticulosis History: No Pertinent History Psycho-Social History: Anxiety Female Reproductive Disorders: No Pertinent History Other Medical History: Narcolepsy - Past Surgical History Past Surgical History: Yes Neuro Surgical History: No Pertinent History Cardiac: No Pertinent History Respiratory: No Pertinent History Gastrointestinal: Cholecystectomy Genitourinary: No Pertinent History Musculoskeletal: Orthopedic Surgery Female Surgical History: Hysterectomy Other Surgical History: SINUS SURGERY - Social History Smoking Status: Never smoker Exposure to second hand smoke: Yes Drug Use: none Patient Lives Alone: Yes Significant Family History: no pertinent family hx - Female History Hx Now: No - Nursing Vital Signs Nursing Vital Signs: Initial Vital Signs Temperature 98.3 F 06/12/21 10:41 Pulse Rate 89 06/12/21 10:41 Respiratory Rate 18 06/12/21 10:41 Blood Pressure 190/101 06/12/21 10:41 O2 Sat by Pulse Oximetry 97 06/12/21 10:41 Pain Scale Pain Intensity 5 - Physical Exam General Appearance: no apparent distress, alert Eye Exam: PERRL/EOMI, eyes nml inspection Ears, Nose, Throat Exam: normal ENT inspection, TMs normal, pharynx normal, moist mucous membranes Neck Exam: normal inspection, non-tender, supple, full range of motion Respiratory Exam: normal breath sounds, lungs clear, No respiratory distress Cardiovascular Exam: regular rate/rhythm, normal heart sounds Gastrointestinal/Abdomen Exam: soft, No tenderness Back Exam: normal inspection, No CVA tenderness, No vertebral tenderness Extremity Exam: normal inspection, normal range of motion Neurologic Exam: alert, oriented x 3, cooperative, normal mood/affect, sensation nml, No motor deficits Skin Exam: normal color, warm, dry, No rash Lymphatic Exam: No adenopathy SpO2: 98 - Course Nursing assessment & vital signs reviewed: Yes Lab/Rad Data: Laboratory Results 06/12/21 06/12/21 Range/Units 10:58 10:57 Influenza Type A Ag POSITIVE (NEGATIVE) Influenza Type B Ag NEGATIVE (NEGATIVE) RSV (PCR) NEGATIVE (Negative) SARS-CoV-2 (PCR) NEGATIVE (NEGATIVE) Group A Strep Antibody NOT DETECTED (NEGATIVE) - Progress Progress: unchanged Air Movement: good Blood Culture(s) Obtained: No Antibiotics given: No - Departure Departure Disposition: Home Clinical Impression: Influenza A Condition: Stable Critical Care Time: No Referrals: SAUL LOPEZ [Primary Care Provider] - Follow up/PCP as directed Instructions: Flu, Adult (DC) Prescriptions: Oseltamivir 75 mg [Tamiflu 75MG Capsule] 75 mg PO BID #10 cap
[2021-06-12 11:39] LABS: INFLUENZA B NEGATIVE (NEGATIVE); RESPIRATORY SYNCTIAL VIRUS NEGATIVE (Negative); SARS-CoV-2 Xpert Express NEGATIVE (NEGATIVE)
[2021-06-12 11:41] LABS: INFLUENZA A POSITIVE (NEGATIVE)
[2021-06-12 12:16] VITALS: BP 143/86; PULSE 72; O2SAT 100
== END 2021-06-12 11:47 | disposition home or self-care (01) ==
LOC: ED 10:36
DX: J10.1 Influenza due to other identified influenza virus with other respiratory manifestations (principal); R05.9 Cough, unspecified; I10 Essential (primary) hypertension; Z20.828 Contact with and (suspected) exposure to other viral communicable diseases
CPT/HCPCS: 0241U; 87651; 99283

== ENCOUNTER 2022-01-04 12:40 | Day surgery (SDC) | payer MEDICARE ==
[2022-01-04] MEDS ORDERED: SYNVISC 16 MG/2 ML SYRINGE IU ONE (12:41)
[2022-01-04] MEDS ORDERED: BENADRYL 50 MG/ML ONE (13:56)
[2022-01-04] MEDS ORDERED: DIPRIVAN 200 MG/20 ML IV ONE (14:21)
[2022-01-04] MEDS ORDERED: Lactated Ringers 1,000 ML IV ONE (15:07)
--- NOTE | 2022-01-04 16:32 | XRAY ---
Indication: Left knee injection. Intraoperative fluoroscopy provided for 2 seconds. Single digital spot image submitted for interpretation demonstrates needle tip projecting over the left femur intercondylar notch. Small amount of contrast injected for needle tip placement. Correlate with intraoperative findings/report.
--- NOTE | 2022-01-04 16:32 | XRAY ---
Indication: Right knee injection. Intraoperative fluoroscopy provided for 10 seconds. Single digital spot image submitted for interpretation demonstrates needle tip projecting over the right femur intercondylar notch. Small amount of contrast injected for needle tip placement. Correlate with intraoperative findings/report.
--- NOTE | 2022-01-04 16:44 | XRAY ---
10 seconds of fluoroscopy was used in surgery for a right knee intra-articular injection.
--- NOTE | 2022-01-04 16:46 | XRAY ---
2 seconds of fluoroscopy was used in surgery for a left knee intra-articular injection.
== END 2022-01-04 14:50 | disposition home or self-care (01) ==
LOC: SDC-PAIN 12:40
PROVIDERS: ATTEND Psychiatry & Neurology Pain Medicine
DX: M17.0 Bilateral primary osteoarthritis of knee (principal); Z79.899 Other long term (current) drug therapy
CPT/HCPCS: 20610; 73560; 77002; J1200; J2704; J7325; Q9966

== ENCOUNTER 2022-01-11 10:17 | Day surgery (SDC) | payer MEDICARE ==
[2022-01-11] MEDS ORDERED: SYNVISC 16 MG/2 ML SYRINGE IU ONE (10:18)
[2022-01-11] MEDS ORDERED: DIPRIVAN 200 MG/20 ML IV ONE (11:44)
[2022-01-11] MEDS ORDERED: BENADRYL 50 MG/ML ONE (11:50)
[2022-01-11] MEDS ORDERED: Lactated Ringers 1,000 ML IV ONE (13:44)
--- NOTE | 2022-01-11 13:46 | XRAY ---
Indication: Left knee injection. Intraoperative fluoroscopy provided for 4 seconds. Single digital spot image submitted for interpretation demonstrates needle tip projecting over the left femur intercondylar notch. Small amount of contrast injected for needle tip placement. Correlate with intraoperative findings/report.
--- NOTE | 2022-01-11 13:46 | XRAY ---
Indication: Right knee injection. Intraoperative fluoroscopy provided for 7 seconds. Single digital spot image submitted for interpretation demonstrates needle tip projecting over the right femur intercondylar notch. Small amount of contrast injected for needle tip placement. Correlate with intraoperative findings/report.
--- NOTE | 2022-01-11 16:46 | XRAY ---
4 seconds fluoroscopy time in surgery for intra-articular injection of the left knee.
--- NOTE | 2022-01-11 16:46 | XRAY ---
7 seconds fluoroscopy time in surgery for intra-articular injection of the right knee.
== END 2022-01-11 12:10 | disposition home or self-care (01) ==
LOC: SDC-PAIN 10:17
PROVIDERS: ATTEND Psychiatry & Neurology Pain Medicine
DX: M17.0 Bilateral primary osteoarthritis of knee (principal)
CPT/HCPCS: 20610; 73560; 77002; J1200; J2704; J7325; Q9966

== ENCOUNTER 2022-01-18 10:08 | Day surgery (SDC) | payer MEDICARE ==
[2022-01-18] MEDS ORDERED: Xylocaine 1% Vial 30 ML PF IJ ONE (10:09)
[2022-01-18] MEDS ORDERED: SYNVISC 16 MG/2 ML SYRINGE IU ONE (10:09)
[2022-01-18] MEDS ORDERED: DIPRIVAN 200 MG/20 ML IV ONE (11:33)
[2022-01-18] MEDS ORDERED: Lactated Ringers 1,000 ML IV ONE (13:06)
--- NOTE | 2022-01-18 17:40 | XRAY ---
Indication: Right knee injection. Intraoperative fluoroscopy provided for 5 seconds. Single digital spot image submitted for interpretation demonstrates needle tip projecting over the right femur intercondylar notch. Small amount of contrast injected for needle tip placement. Correlate with intraoperative findings/report.
--- NOTE | 2022-01-18 17:40 | XRAY ---
Indication: Left knee injection. Intraoperative fluoroscopy provided for 6 seconds. Single digital spot image submitted for interpretation demonstrates needle tip projecting over the left femur intercondylar notch. Small amount of contrast injected for needle tip placement. Correlate with intraoperative findings/report.
--- NOTE | 2022-01-18 17:45 | XRAY ---
6 seconds fluoroscopy time in surgery for intra-articular injection of the left knee.
--- NOTE | 2022-01-18 17:45 | XRAY ---
5 seconds fluoroscopy time in surgery for intra-articular injection of the right knee.
== END 2022-01-18 12:00 | disposition home or self-care (01) ==
LOC: SDC-PAIN 10:08
PROVIDERS: ATTEND Psychiatry & Neurology Pain Medicine
DX: M17.0 Bilateral primary osteoarthritis of knee (principal); Z79.899 Other long term (current) drug therapy
CPT/HCPCS: 20610; 73560; 77002; J2001; J2704; J7325; Q9966

== ENCOUNTER 2022-01-28 17:53 | Emergency (ER) | payer MEDICARE ==
--- NOTE | 2022-01-28 19:30 | ERPHSYRPT ---
- History of Present Illness Time Seen by Provider: 01/28/22 19:20 Patient Subjective Stated Complaint: pt here for sinus congestion and a dry cough for a couple days Triage Nursing Assessment: pt alert, walked in, resp easy, face mask in place, skin w/d/p. no cough in er Physician History: This is a 61-year-old white female who has had a dry cough and nasal congestion as well as sore throat for couple of days. She is here primarily to be treated for her nasal congestion and sore throat. She denies chest pain. She denies shortness of breath. Timing/Duration: days (Couple of days) Severity: mild ENT Location: nose, throat Modifying Factors: Improves With: coughing Associated Symptoms: cough, sore throat Allergies/Adverse Reactions: coconut Allergy (Severe, Verified 01/28/22 18:57) Anaphylactic Reaction codeine [Codeine] Allergy (Mild, Verified 01/28/22 18:57) Shortness of Breath latex Allergy (Mild, Verified 01/28/22 18:57) Rash states "have a little on my waistband" Home Medications: Furosemide [Lasix] 40 mg PO DAILY 07/15/13 [History] Modafinil [Provigil] 200 mg PO DAILY 07/15/13 [History] Famotidine 20 mg [Pepcid 20 MG] 20 mg PO BID 10/25/16 [History] Levothyroxine Sodium 100 Mcg [Synthroid 100 Mcg] 2 tab PO QAM 10/25/16 [History] Amlodipine Besylate 10 mg PO DAILY 11/09/20 [History] Topiramate [Topamax] 50 mg PO DAILY 11/09/20 [History] Losartan Potassium 1 tab PO DAILY 03/18/21 [History] Hx Tetanus, Diphtheria Vaccination/Date Given: Yes Hx Influenza Vaccination/Date Given: Yes Hx Pneumococcal Vaccination/Date Given: No Immunizations Up to Date: Yes Travel Risk - International Travel Have you traveled outside of the country in past 3 weeks: No - Coronavirus Screening Are you exhibiting any of the following symptoms?: Yes Symptoms: Cough: New Onset Close contact with a COVID-19 positive Pt in past 14-21 Days: No - Vaccine Status Have you recieved a Covid-19 vaccination: Yes Animal Technician: Moderna - Vaccination Dates Date of 2cond Vaccination (if applicable): January 2021 - Review of Systems Constitutional: No Symptoms Eyes: No Symptoms Ears, Nose, & Throat: Nose Congestion, Throat Pain Respiratory: Cough Cardiac: No Symptoms Abdominal/Gastrointestinal: No Symptoms Genitourinary Symptoms: No Symptoms Musculoskeletal: No Symptoms Skin: No Symptoms Neurological: No Symptoms Psychological: No Symptoms Endocrine: No Symptoms Hematologic/Lymphatic: No Symptoms Immunological/Allergic: No Symptoms All Other Systems: Reviewed and Negative - Past Medical History Pertinent Past Medical History: Yes Neurological History: Other ENT History: No Pertinent History Cardiac History: Hypertension Respiratory History: No Pertinent History Endocrine Medical History: Hypothyroidism Musculoskeletal History: Arthritis GI Medical History: Diverticulosis History: No Pertinent History Psycho-Social History: Anxiety Female Reproductive Disorders: No Pertinent History Other Medical History: Narcolepsy - Past Surgical History Past Surgical History: Yes Neuro Surgical History: No Pertinent History Cardiac: No Pertinent History Respiratory: No Pertinent History Gastrointestinal: Cholecystectomy Genitourinary: No Pertinent History Musculoskeletal: Orthopedic Surgery Female Surgical History: Hysterectomy Other Surgical History: SINUS SURGERY - Social History Smoking Status: Never smoker Exposure to second hand smoke: Yes Drug Use: none Patient Lives Alone: Yes Significant Family History: no pertinent family hx - Nursing Vital Signs Nursing Vital Signs: Initial Vital Signs Temperature 97.5 F 01/28/22 18:54 Pulse Rate 79 01/28/22 18:54 Respiratory Rate 18 01/28/22 18:54 Blood Pressure 177/77 01/28/22 18:54 O2 Sat by Pulse Oximetry 98 01/28/22 18:54 Pain Scale Pain Intensity 0 - Physical Exam General Appearance: no apparent distress, alert, anxiety, obese Eye Exam: bilateral eye: normal inspection, PERRL, EOMI Ear Exam: bilateral ear: auricle normal, canal normal, TM normal Nasal Exam: normal inspection Throat Exam: pharynx tenderness Neck Exam: normal inspection, non-tender, supple, full range of motion, trachea midline Cardiovascular/Respiratory Exam: chest non-tender, normal breath sounds, regular rate/rhythm, heart sounds normal, no respiratory distress Abdominal Exam: non-tender Neurologic Exam: alert, oriented x 3, cooperative, therapeutic activities services worker II-XII nml as tested, normal mood/affect, nml cerebellar function, nml station & gait, sensation nml Skin Exam: normal color, warm, dry SpO2 Interpretation: normal SpO2: 97 O2 Delivery: Room Air - Course Nursing assessment & vital signs reviewed: Yes Lab/Rad Data: Laboratory Results 01/28/22 Range/Units 19:21 Influenza Type A Ag NEGATIVE (NEGATIVE) Influenza Type B Ag NEGATIVE (NEGATIVE) RSV (PCR) NEGATIVE (Negative) SARS-CoV-2 (PCR) POSITIVE A (NEGATIVE) - Progress Progress: unchanged Counseled pt/family regarding: lab results, diagnosis, need for follow-up - Departure Departure Disposition: Home Clinical Impression: COVID-19 virus infection, Nasal congestion, Pharyngitis Condition: Stable Critical Care Time: No Referrals: SAUL LOPEZ [Primary Care Provider] - Follow up/PCP as directed Additional Instructions: Drink plenty of fluids. Take your medication as prescribed. Quarantine yourself per your employees protocol. Prescriptions: Prednisone 10 mg [Deltasone 10 mg] 10 mg PO TID #12 tablet Azithromycin 250 mg [Zithromax 250 MG TABLET] 250 mg PO ZPACK #6 tablet
[2022-01-28 20:00] LABS: INFLUENZA A NEGATIVE (NEGATIVE); INFLUENZA B NEGATIVE (NEGATIVE); RESPIRATORY SYNCTIAL VIRUS NEGATIVE (Negative)
[2022-01-28 20:06] LABS: SARS-CoV-2 Xpert Express POSITIVE (NEGATIVE)
[2022-01-28 20:08] VITALS: BP 169/96; PULSE 80
[2022-01-28 20:14] VITALS: O2SAT 97
[2022-01-28] MEDS ORDERED: Zithromax 250 MG TABLET PO ONE (20:15)
[2022-01-28] MEDS ORDERED: DELTASONE 20 MG PO ONE (20:16)
[2022-01-28] MEDS ORDERED: DELTASONE 20 MG ONE (20:25)
[2022-01-28] MEDS ORDERED: Zithromax 250 MG TABLET ONE (20:25)
== END 2022-01-28 20:38 | disposition home or self-care (01) ==
LOC: ED 17:53
DX: U07.1 COVID-19 (principal); R09.81 Nasal congestion; J02.9 Acute pharyngitis, unspecified; R05.1 Acute cough; I10 Essential (primary) hypertension; Z79.899 Other long term (current) drug therapy; Z79.52 Long term (current) use of systemic steroids
CPT/HCPCS: 0241U; 99283; A9270-GY

== ENCOUNTER 2022-08-08 19:57 | Emergency (ER) | payer MEDICARE ==
[2022-08-08] MEDS ORDERED: KEFLEX 500 MG PO ONE (21:10)
--- NOTE | 2022-08-08 21:13 | ERPHSYRPT ---
- History of Present Illness Patient Subjective Stated Complaint: my legs are swollen and warm to touch Triage Nursing Assessment: pt ambulated into ER without diff. Pt c/o swelling to bilat lower legs with some warmth noted to them. Pt was at Dr. Oneill's office yesterday and the legs were also swollen then but pt feels they are worse today. Pt states, "I ate alot of sodium yesterday as well and I usually don't eat much salt at all". Pedal pulses present. Bilat lower legs are swollen and tight. Pt states, "I laid in the tanning bed on Sunday and I've noticed my legs being warm since then". I did get a little burned. Pt denies any pain. Physician History: 61yo F present to the ED w/ b/l LE edema. Pt c/o swelling to bilat lower legs with some warmth and redness noted to them. Pt was at Dr. Oneill's office yesterday and the legs were also swollen then but pt feels they are worse today. Pt states, "I ate alot of sodium yesterday as well and I usually don't eat much salt at all". Pt states, "I laid in the tanning bed on Sunday and I've noticed my legs being warm since then". I did get a little burned. Pt denies any pain. Patient also reporting some buring w/ urination as well as increased urinary frequency. Timing/Duration: yesterday Severity: moderate Associated Symptoms: denies symptoms Allergies/Adverse Reactions: coconut Allergy (Severe, Verified 08/08/22 20:12) Anaphylactic Reaction codeine [Codeine] Allergy (Mild, Verified 08/08/22 20:12) Shortness of Breath latex Allergy (Mild, Verified 08/08/22 20:12) Rash states "have a little on my waistband" Home Medications: Furosemide [Lasix] 40 mg PO DAILY 07/15/13 [History] Modafinil [Provigil] 200 mg PO DAILY 07/15/13 [History] Famotidine 20 mg [Pepcid 20 MG] 20 mg PO BID 10/25/16 [History] Amlodipine Besylate 10 mg PO DAILY 11/09/20 [History] Topiramate [Topamax] 50 mg PO DAILY 11/09/20 [History] Docusate Sodium [Colace] 100 mg PO DAILY 08/08/22 [History] Levothyroxine Sodium 100 Mcg [Synthroid 100 Mcg] 200 mcg PO DAILY 08/08/22 [History] Hx Tetanus, Diphtheria Vaccination/Date Given: Yes Hx Influenza Vaccination/Date Given: Yes Hx Pneumococcal Vaccination/Date Given: Yes Immunizations Up to Date: Yes Travel Risk - International Travel Have you traveled outside of the country in past 3 weeks: No - Coronavirus Screening Are you exhibiting any of the following symptoms?: No Close contact with a COVID-19 positive Pt in past 14-21 Days: No - Vaccine Status Have you recieved a Covid-19 vaccination: Yes Lead Teller: Moderna - Vaccination Dates Date of 2cond Vaccination (if applicable): . - Review of Systems Constitutional: No Symptoms Respiratory: No Symptoms Cardiac: No Symptoms Abdominal/Gastrointestinal: No Symptoms Genitourinary Symptoms: Dysuria, Frequency, No Hematuria Musculoskeletal: No Symptoms Skin: Cellulitis Neurological: No Symptoms - Past Medical History Pertinent Past Medical History: Yes Neurological History: Other ENT History: No Pertinent History Cardiac History: Hypertension Respiratory History: No Pertinent History Endocrine Medical History: Hypothyroidism Musculoskeletal History: Arthritis GI Medical History: Diverticulosis, Gallbladder Disease History: No Pertinent History Psycho-Social History: Anxiety Female Reproductive Disorders: No Pertinent History Other Medical History: Narcolepsy - Past Surgical History Past Surgical History: Yes Neuro Surgical History: No Pertinent History Cardiac: No Pertinent History Respiratory: No Pertinent History Gastrointestinal: Cholecystectomy Genitourinary: No Pertinent History Musculoskeletal: Orthopedic Surgery Female Surgical History: Hysterectomy Other Surgical History: SINUS SURGERY. Lt Knee - Social History Smoking Status: Never smoker Exposure to second hand smoke: No Drug Use: none Patient Lives Alone: Yes Significant Family History: no pertinent family hx - Nursing Vital Signs Nursing Vital Signs: Initial Vital Signs Temperature 98.6 F 08/08/22 20:03 Pulse Rate 100 H 08/08/22 20:03 Respiratory Rate 20 08/08/22 20:03 Blood Pressure 146/107 08/08/22 20:03 O2 Sat by Pulse Oximetry 96 08/08/22 20:03 Pain Scale Pain Intensity 0 - Physical Exam General Appearance: no apparent distress Respiratory Exam: normal breath sounds, lungs clear, airway intact, No respiratory distress Cardiovascular Exam: regular rate/rhythm, normal heart sounds, capillary refill <2 sec, edema Gastrointestinal/Abdomen Exam: soft, normal bowel sounds, No tenderness, No guarding, No rebound Extremity Exam: swelling Neurologic Exam: alert, oriented x 3, cooperative Skin Exam: warm, other (erythema to mid tibia b/l) SpO2 Interpretation: normal SpO2: 96 O2 Delivery: Room Air - Course Nursing assessment & vital signs reviewed: Yes Ordered Tests: Medication Summary Discontinued Medications Generic Name Dose Route Start Last Admin Trade Name Shahnaz PRN Reason Stop Dose Admin Cephalexin HCl 500 mg 08/08/22 21:10 08/08/22 21:18 Cephalexin Mh500 Mg Capsule PO 08/08/22 21:11 500 mg STAT ONE Administration Cephalexin HCl Confirm 08/08/22 21:18 Cephalexin Mh500 Mg Capsule Administered 08/08/22 21:19 Dose 500 mg .ROUTE .STK-MED ONE Potassium Chloride 40 meq 08/08/22 21:46 08/08/22 21:55 Potassium Chloride Tab 10 Meq Tab PO 08/08/22 21:47 40 meq STAT ONE Administration Potassium Chloride Confirm 08/08/22 21:54 Potassium Chloride Tab 10 Meq Tab Administered 08/08/22 21:55 Dose 40 meq PO .STK-MED ONE Lab/Rad Data: Laboratory Result Diagrams 08/08/22 21:20 08/08/22 21:20 Laboratory Results 08/08/22 08/08/22 08/08/22 Range/Units 21:20 21:20 21:20 WBC 12.2 H (4.0-10.5) x10^3/uL RBC 5.58 H (4.1-5.4) x10^6/uL Hgb 15.7 (12.0-16.0) g/dL Hct 47.1 H (35-47) % MCV 84.4 (78-100) fL MCH 28.1 (26-32) pg MCHC 33.3 (32-36) g/dL RDW 12.6 (11.5-14.0) % Plt Count 266 (150-450) x10^3/uL MPV 9.6 (7.5-11.0) fL Gran % 55.1 (36.0-66.0) % Immature Gran % (Auto) 0.3 (0.00-0.4) % Nucleat RBC Rel Count 0.0 (0.00-0.1) % Eos # (Auto) 0.28 (0-0.5) x10^3/uL Immature Gran # (Auto) 0.04 H (0.00-0.03) x10^3u/L Absolute Lymphs (auto) 4.16 (1.0-4.6) x10^3/uL Absolute Monos (auto) 0.89 (0.0-1.3) x10^3/uL Absolute Nucleated RBC 0.00 (0.00-0.01) x10^3u/L Lymphocytes % 34.2 (24.0-44.0) % Monocytes % 7.3 (0.0-12.0) % Eosinophils % 2.3 (0.00-5.0) % Basophils % 0.8 (0.0-0.4) % Absolute Granulocytes 6.69 (1.4-6.9) x10^3/uL Basophils # 0.10 (0-0.4) x10^3/uL Sodium 141 (137-145) mmol/L Potassium 3.3 L (3.5-5.1) mmol/L Chloride 103 (98-107) mmol/L Carbon Dioxide 28 (22-30) mmol/L Anion Gap 13.7 (5-15) MEQ/L BUN 12 (7-17) mg/dL Creatinine 0.63 (0.52-1.04) mg/dL Estimated GFR > 60.0 ML/MIN Glucose 128 H (74-106) mg/dL Calcium 9.3 (8.4-10.2) mg/dL Magnesium 2.1 (1.6-2.3) mg/dL Total Bilirubin 0.60 (0.2-1.3) mg/dL AST 28 (14-36) U/L ALT 45 H (0-35) U/L Alkaline Phosphatase 132 H (38-126) U/L NT-Pro-B Natriuret Pep < 20.0 (<300) pg/mL Serum Total Protein 8.0 (6.3-8.2) g/dL Albumin 4.5 (3.5-5.0) g/dL - Progress Progress: unchanged Progress Note: Decision made to treat w/ abx to cover for cellulitis as well as UTI. Patient agreeable w/ plan. 08/12/22 04:34 Counseled pt/family regarding: lab results, diagnosis, need for follow-up Medical Desision Making - Diagnostic Testing Diagnostic test were ordered, analyzed, and reviewed by me: Yes - Risk of complications The pt has a mod risk of morbidity or mortality based on: Need for prescription drug management - Departure Departure Disposition: Home Clinical Impression: Bilateral lower extremity edema, Cellulitis of left leg without foot Condition: Good Critical Care Time: No Referrals: SAUL LOPEZ [Primary Care Provider] - Follow up/PCP as directed Instructions: Swelling, Cellulitis (Skin Infection), Adult ED Prescriptions: Cephalexin Mh 500 mg [Keflex 500 mg] 500 mg PO BID 10 Days #20 cap
[2022-08-08] MEDS ORDERED: KEFLEX 500 MG ONE (21:18)
[2022-08-08 21:29] LABS: Absolute Neutrophil Ct (ANC) 6.69 x10^3/uL (1.4-6.9); BASOPHIL % 0.8 % (0.0-0.4); Eosinophil % 2.3 % (0.00-5.0); Eosinophil (Absolute #) 0.28 x10^3/uL (0-0.5); Hematocrit 47.1 % (35-47); Hemoglobin 15.7 g/dL (12.0-16.0); IMMATURE GRAN # 0.04 x10^3u/L (0.00-0.03); IMMATURE GRAN % 0.3 % (0.00-0.4); Lymphocyte (Absolute #) 4.16 x10^3/uL (1.0-4.6); Lymphocytes % 34.2 % (24.0-44.0); Mean Cell Volume 84.4 fL (78-100); Mean Corpuscular Hemoglobin 28.1 pg (26-32); Mean Corpuscular Hgb Concent. 33.3 g/dL (32-36); Mean Platelet Volume 9.6 fL (7.5-11.0); Monocyte (Absolute #) 0.89 x10^3/uL (0.0-1.3); Monocytes % 7.3 % (0.0-12.0); Neutrophil % 55.1 % (36.0-66.0); Platelet Count 266 x10^3/uL (150-450); Red Blood Count 5.58 x10^6/uL (4.1-5.4); Red Cell Distribution Width 12.6 % (11.5-14.0); White Blood Count 12.2 x10^3/uL (4.0-10.5)
[2022-08-08 21:35] LABS: ALBUMIN 4.5 g/dL (3.5-5.0); ALKALINE PHOSPHATASE 132 U/L (38-126); ANION GAP 13.7 MEQ/L (5-15); BLOOD UREA NITROGEN 12 mg/dL (7-17); CHLORIDE 103 mmol/L (98-107); Calcium 9.3 mg/dL (8.4-10.2); Carbon Dioxide 28 mmol/L (22-30); Creatinine 1 0.63 mg/dL (0.52-1.04); EST GLOMERULAR FILTRATION RATE > 60.0 ML/MIN; Glucose 128 mg/dL (74-106); MAGNESIUM 2.1 mg/dL (1.6-2.3); Potassium 3.3 mmol/L (3.5-5.1); SGOT/AST 28 U/L (14-36); SGPT/ALT 45 U/L (0-35); SODIUM 141 mmol/L (137-145)
[2022-08-08] MEDS ORDERED: Klor Con PO ONE ×2 (21:46→21:54)
[2022-08-08 22:48] VITALS: O2SAT 96
[2022-08-08 22:53] VITALS: BP 133/78; PULSE 78
== END 2022-08-08 22:52 | disposition home or self-care (01) ==
LOC: ED 19:57
DX: L03.116 Cellulitis of left lower limb (principal); R60.0 Localized edema; Z79.899 Other long term (current) drug therapy
CPT/HCPCS: 36415; 80053; 83735; 83880; 85025; 99283; A9270-GY

== ENCOUNTER → 2022-09-27 | Day surgery (SDC) | payer MEDICARE ==
[~2022-09-27] MED LIST: DIPRIVAN 200 MG/20 ML IV ONE; LIDOCAINE HCL 2% 100 MG/5 ML IJ ONE; Lactated Ringers 1,000 ML IV ONE
--- NOTE | 2022-09-27 18:06 | XRAY ---
Indication: Bilateral L4-S1 MBB. Intraoperative fluoroscopy provided for 15 seconds. Single digital spot image submitted for interpretation demonstrates posterior needle tips projecting over the expected left and right L4-S1 nerve roots. Correlate with intraoperative findings/report.
--- NOTE | 2022-09-27 19:02 | XRAY ---
15 seconds of fluoroscopy was used in surgery for a bilateral L4-S1 MBB.
== END ==
LOC: SDC-PAIN 10:05
PROVIDERS: ATTEND Psychiatry & Neurology Pain Medicine
DX: M47.816 Spondylosis without myelopathy or radiculopathy, lumbar region (principal); Z79.899 Other long term (current) drug therapy
CPT/HCPCS: 64493; 64494; 72020; 77002; J2704

== ENCOUNTER 2022-11-22 09:52 | Day surgery (SDC) | payer MEDICARE ==
[2022-11-22] MEDS ORDERED: BUPIVACAINE 0.5% VIAL IJ ONE (09:53)
[2022-11-22] MEDS ORDERED: DIPRIVAN 200 MG/20 ML IV ONE ×2 (11:48→11:55)
--- NOTE | 2022-11-22 13:08 | XRAY ---
Indication: Bilateral L4-S1 MBB. Intraoperative fluoroscopy provided for 16 seconds. Single digital spot image submitted for interpretation demonstrates posterior needle tips projecting over the expected left and right L4-S1 nerve roots. Correlate with intraoperative findings/report.
[2022-11-22] MEDS ORDERED: Lactated Ringers 1,000 ML IV ONE (13:35)
--- NOTE | 2022-11-22 13:56 | XRAY ---
16 seconds of fluoroscopy was used in surgery for a bilateral L4-S1 MBB.
== END 2022-11-22 12:17 | disposition home or self-care (01) ==
LOC: SDC-PAIN 09:52
PROVIDERS: ATTEND Psychiatry & Neurology Pain Medicine
DX: M47.816 Spondylosis without myelopathy or radiculopathy, lumbar region (principal); Z79.899 Other long term (current) drug therapy
CPT/HCPCS: 64493; 64494; 72020; 77002; J2704

== ENCOUNTER 2023-01-12 08:56 | Emergency (ER) | payer MEDICARE ==
[2023-01-12 09:19] VITALS: TEMP 96.4
[2023-01-12] MEDS ORDERED: ANTIVERT 25 MG PO ONE (09:41)
--- NOTE | 2023-01-12 09:41 | ERPHSYRPT ---
- History of Present Illness Time Seen by Provider: 01/12/23 09:15 Source: patient Exam Limitations: no limitations Patient Subjective Stated Complaint: pt here for dizziness and nausea that sudden onset today, feels like room is spinning, Triage Nursing Assessment: pt alert, walked in, resp easy, skin w/d/p, Physician History: This is a 62-year-old morbidly obese white female patient who is on multiple medications to treat high blood pressure and presents to the emergency department with sudden onset of dizziness and nausea that occurred this morning. Patient woke up feeling fine. After taking her usual blood pressure medication she soon felt as though the room was spinning. She had associated nausea. She denies head injury. She has not had any flulike symptoms. She has no visual changes. She has never had anything like this before. She denies chest pain. She denies headache. She denies shortness of breath. Patient also has a history of hypothyroidism, anxiety and a seizure disorder. It has been a few years since she has had a seizure. There is been no change in her medication. Timing/Duration: today Severity: mild Character of Deficits: none Baseline/Normal Cognition: alert oriented x 3 Current Cognition: alert oriented x 3 Baseline Gait: walks w/o assistance Associated Symptoms: nausea, No fever, No loss of consciousness, No vomiting, No seizures, No slurred speech, No trouble walking, No vision changes, No chest pain, No headache Allergies/Adverse Reactions: coconut Allergy (Severe, Verified 01/12/23 09:09) Anaphylactic Reaction codeine [Codeine] Allergy (Mild, Verified 01/12/23 09:09) Shortness of Breath latex Allergy (Mild, Verified 01/12/23 09:09) Rash states "have a little on my waistband" Home Medications: Furosemide [Lasix] 40 mg PO DAILY 07/15/13 [History] Modafinil [Provigil] 200 mg PO DAILY 07/15/13 [History] Famotidine 20 mg [Pepcid 20 MG] 20 mg PO BID 10/25/16 [History] Amlodipine Besylate 10 mg PO DAILY 11/09/20 [History] Topiramate [Topamax] 50 mg PO DAILY 11/09/20 [History] Docusate Sodium [Colace] 100 mg PO DAILY 08/08/22 [History] Levothyroxine Sodium 100 Mcg [Synthroid 100 Mcg] 175 mcg PO DAILY 08/08/22 [History] Hx Tetanus, Diphtheria Vaccination/Date Given: Yes Hx Influenza Vaccination/Date Given: Yes Hx Pneumococcal Vaccination/Date Given: Yes Immunizations Up to Date: Yes Travel Risk - International Travel Have you traveled outside of the country in past 3 weeks: No - Coronavirus Screening Are you exhibiting any of the following symptoms?: No Close contact with a COVID-19 positive Pt in past 14-21 Days: No - Vaccine Status Have you recieved a Covid-19 vaccination: Yes Tree Warden: Moderna - Vaccination Dates Date of 2cond Vaccination (if applicable): 2020 - Review of Systems Constitutional: No Symptoms Eyes: No Symptoms Ears, Nose, & Throat: No Symptoms Respiratory: No Symptoms Cardiac: No Symptoms Abdominal/Gastrointestinal: No Symptoms Genitourinary Symptoms: No Symptoms Musculoskeletal: No Symptoms Skin: No Symptoms Neurological: No Symptoms Psychological: No Symptoms Endocrine: No Symptoms Hematologic/Lymphatic: No Symptoms Immunological/Allergic: No Symptoms All Other Systems: Reviewed and Negative - Past Medical History Pertinent Past Medical History: Yes Neurological History: Seizures, Other ENT History: No Pertinent History Cardiac History: Hypertension Respiratory History: No Pertinent History Endocrine Medical History: Hypothyroidism, Other Musculoskeletal History: Osteoarthritis GI Medical History: Diverticulosis, Gallbladder Disease History: No Pertinent History Psycho-Social History: Anxiety Female Reproductive Disorders: No Pertinent History Other Medical History: SX HX: ACL/MENISCAL TEAR WITH REPAIR LEFT KNEE 2014, SINUS SURGERY FOR SLEEP APNEA, HYSTERECTOMY, LUMPECTOMY BREASTS, CATARACTS. REPORTS HX OF BACK INJURY WITH HX OF INJECTIONS X 2 IN THE PAST 2 YEARS WITH GOOD RELIEF. - Past Surgical History Past Surgical History: Yes Neuro Surgical History: No Pertinent History Cardiac: No Pertinent History Respiratory: No Pertinent History Gastrointestinal: Cholecystectomy Genitourinary: No Pertinent History Musculoskeletal: Orthopedic Surgery Female Surgical History: Hysterectomy Other Surgical History: SINUS SURGERY. Lt Knee - Social History Smoking Status: Never smoker Exposure to second hand smoke: No Drug Use: none Patient Lives Alone: Yes Significant Family History: no pertinent family hx - Nursing Vital Signs Nursing Vital Signs: Initial Vital Signs Temperature 96.4 F 01/12/23 09:15 Pulse Rate 67 01/12/23 09:15 Respiratory Rate 20 01/12/23 09:15 Blood Pressure 167/99 01/12/23 09:15 O2 Sat by Pulse Oximetry 97 01/12/23 09:15 Pain Scale Pain Intensity 0 - Lolly Coma Scale Best Eye Response ([place]): (4) open spontaneously Best Verbal Response ([place]): (5) oriented Best Motor Response (Lolly): (6) obeys commands Lolly Total: 15 - Physical Exam General Appearance: no apparent distress, alert, anxiety, obese Eye Exam: bilateral eye: normal inspection, PERRL, EOMI Ears, Nose, Throat Exam: normal ENT inspection, moist mucous membranes Neck Exam: normal inspection, non-tender, supple, full range of motion Respiratory: normal breath sounds, lungs clear, airway intact, No chest tenderness, No respiratory distress Cardiovascular: regular rate/rhythm, normal heart sounds, normal peripheral pulses Gastrointestinal: soft, normal bowel sounds, No tenderness Pelvic Exam: not done Rectal Exam: not done Back Exam: normal inspection, normal range of motion, No CVA tenderness, No vertebral tenderness Extremity Exam: normal inspection, normal range of motion, pelvis stable Mental Status: alert, 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 The computer read out on the twelve-lead EKG uses LVH pre sent.) Ordered Tests: Active Orders 24 hr Category Date Time Status Director Of Accounts Payable STAT Care 01/12/23 09:42 Active Clean Catch Urine Specimen STAT Care 01/12/23 09:41 Active EKG-ER Only STAT Care 01/12/23 09:41 Active IV Insertion STAT Care 01/12/23 09:41 Active HEAD WITHOUT CONTRAST [CT] Stat Exams 01/12/23 09:42 Completed CBC W DIFF Stat Lab 01/12/23 09:52 Completed CMP Stat Lab 01/12/23 09:52 Completed CULTURE,URINE Stat Lab 01/12/23 09:52 Received ETHYL ALCOHOL Stat Lab 01/12/23 09:52 Completed LIPID PROFILE Stat Lab 01/12/23 09:52 Received MAGNESIUM Stat Lab 01/12/23 09:52 Completed T4 (Thyroxine) Stat Lab 01/12/23 09:52 Completed TROPONIN Q4H Lab 01/12/23 09:52 Completed TROPONIN Q4H Lab 01/12/23 13:45 Ordered TROPONIN Q4H Lab 01/12/23 17:45 Ordered TSH [TSH, 3RD Generation] Stat Lab 01/12/23 09:52 Completed UA W/RFX UR CULTURE Stat Lab 01/12/23 09:52 Completed Urine Triage Profile Stat Lab 01/12/23 09:52 Completed Medication Summary Discontinued Medications Generic Name Dose Route Start Last Admin Trade Name Freq PRN Reason Stop Dose Admin Meclizine HCl 25 mg 01/12/23 09:41 01/12/23 09:57 Meclizine Hcl 25 Mg Tablet PO 01/12/23 09:42 25 mg STAT ONE Administration Meclizine HCl Confirm 01/12/23 09:57 Meclizine Hcl 25 Mg Tablet Administered 01/12/23 09:58 Dose 25 mg .ROUTE .STK-MED ONE Ondansetron HCl 4 mg 01/12/23 10:07 01/12/23 10:17 Ondansetron Hcl 4 Mg/2 Ml Vial IV 01/12/23 10:08 4 mg STAT ONE Administration Ondansetron HCl Confirm 01/12/23 10:16 Ondansetron Hcl 4 Mg/2 Ml Vial Administered 01/12/23 10:17 Dose 4 mg .ROUTE .STK-MED ONE Lab/Rad Data: Laboratory Result Diagrams 01/12/23 09:52 01/12/23 09:52 Laboratory Results 01/12/23 01/12/23 01/12/23 Range/Units 09:52 09:52 09:52 WBC (4.0-10.5) x10^3/uL RBC (4.1-5.4) x10^6/uL Hgb (12.0-16.0) g/dL Hct (35-47) % MCV (78-100) fL MCH (26-32) pg MCHC (32-36) g/dL RDW (11.5-14.0) % Plt Count (150-450) x10^3/uL MPV (7.5-11.0) fL Gran % (36.0-66.0) % Immature Gran % (Auto) (0.00-0.4) % Nucleat RBC Rel Count (0.00-0.1) % Eos # (Auto) (0-0.5) x10^3/uL Immature Gran # (Auto) (0.00-0.03) x10^3u/L Absolute Lymphs (auto) (1.0-4.6) x10^3/uL Absolute Monos (auto) (0.0-1.3) x10^3/uL Absolute Nucleated RBC (0.00-0.01) x10^3u/L Lymphocytes % (24.0-44.0) % Monocytes % (0.0-12.0) % Eosinophils % (0.00-5.0) % Basophils % (0.0-0.4) % Absolute Granulocytes (1.4-6.9) x10^3/uL Basophils # (0-0.4) x10^3/uL Sodium 143 (137-145) mmol/L Potassium 3.5 (3.5-5.1) mmol/L Chloride 107 (98-107) mmol/L Carbon Dioxide 27 (22-30) mmol/L Anion Gap 12.5 (5-15) MEQ/L BUN 20 H (7-17) mg/dL Creatinine 0.66 (0.52-1.04) mg/dL Estimated GFR > 60.0 ML/MIN Glucose 113 H (74-106) mg/dL Calcium 9.0 (8.4-10.2) mg/dL Magnesium 2.2 (1.6-2.3) mg/dL Total Bilirubin 0.70 (0.2-1.3) mg/dL AST 48 H (14-36) U/L ALT 35 (0-35) U/L Alkaline Phosphatase 105 (38-126) U/L Troponin I < 0.012 (0.000-0.034) ng/mL Serum Total Protein 7.0 (6.3-8.2) g/dL Albumin 4.1 (3.5-5.0) g/dL Thyroxine (T4) 14.6 H (5.53-10.96) ug/dL TSH 3rd Generation 2.450 (0.47-4.68) mIU/L Urine Color (Yellow) Urine Appearance (Clear) Urine pH (4.6-8.0) Ur Specific [place] (1.005-1.030) Urine Protein (Negative) Urine Glucose (UA) (Negative) mg/dL Urine Ketones (Negative) Urine Blood (Negative) Urine Nitrite (Negative) Urine Bilirubin (Negative) Urine Urobilinogen (0.2) mg/dL Ur Leukocyte Esterase (Negative) U Hyaline Cast (Auto) (0-2) /LPF Urine Microscopic RBC (0-5) /HPF Urine Microscopic WBC (0-5) /HPF Ur Epithelial Cells (None Seen) /HPF Urine Bacteria (None Seen) /HPF Urine Culture Reflexed (NO) Urine Opiates Level (NEGATIVE) Ur Methadone (NEGATIVE) Urine Barbiturates (NEGATIVE) Ur Phencyclidine (PCP) (NEGATIVE) Urine Amphetamine (NEGATIVE) U Benzodiazepine Level (NEGATIVE) Urine Cocaine (NEGATIVE) Urine Marijuana (THC) (NEGATIVE) Ethyl Alcohol < 10 (0-10) mg/dL 01/12/23 01/12/23 01/12/23 Range/Units 09:52 09:52 09:52 WBC 9.5 (4.0-10.5) x10^3/uL RBC 5.00 (4.1-5.4) x10^6/uL Hgb 14.1 (12.0-16.0) g/dL Hct 43.0 (35-47) % MCV 86.0 (78-100) fL MCH 28.2 (26-32) pg MCHC 32.8 (32-36) g/dL RDW 12.5 (11.5-14.0) % Plt Count 176 (150-450) x10^3/uL MPV 11.3 H (7.5-11.0) fL Gran % 49.8 (36.0-66.0) % Immature Gran % (Auto) 0.3 (0.00-0.4) % Nucleat RBC Rel Count 0.0 (0.00-0.1) % Eos # (Auto) 0.23 (0-0.5) x10^3/uL Immature Gran # (Auto) 0.03 (0.00-0.03) x10^3u/L Absolute Lymphs (auto) 3.67 (1.0-4.6) x10^3/uL Absolute Monos (auto) 0.75 (0.0-1.3) x10^3/uL Absolute Nucleated RBC 0.00 (0.00-0.01) x10^3u/L Lymphocytes % 38.8 (24.0-44.0) % Monocytes % 7.9 (0.0-12.0) % Eosinophils % 2.4 (0.00-5.0) % Basophils % 0.8 (0.0-0.4) % Absolute Granulocytes 4.71 (1.4-6.9) x10^3/uL Basophils # 0.08 (0-0.4) x10^3/uL Sodium (137-145) mmol/L Potassium (3.5-5.1) mmol/L Chloride (98-107) mmol/L Carbon Dioxide (22-30) mmol/L Anion Gap (5-15) MEQ/L BUN (7-17) mg/dL Creatinine (0.52-1.04) mg/dL Estimated GFR ML/MIN Glucose (74-106) mg/dL Calcium (8.4-10.2) mg/dL Magnesium (1.6-2.3) mg/dL Total Bilirubin (0.2-1.3) mg/dL AST (14-36) U/L ALT (0-35) U/L Alkaline Phosphatase (38-126) U/L Troponin I (0.000-0.034) ng/mL Serum Total Protein (6.3-8.2) g/dL Albumin (3.5-5.0) g/dL Thyroxine (T4) (5.53-10.96) ug/dL TSH 3rd Generation (0.47-4.68) mIU/L Urine Color Yellow (Yellow) Urine Appearance Cloudy A (Clear) Urine pH 6.0 (4.6-8.0) Ur Specific [place] 1.020 (1.005-1.030) Urine Protein Trace A (Negative) Urine Glucose (UA) Negative (Negative) mg/dL Urine Ketones Negative (Negative) Urine Blood Negative (Negative) Urine Nitrite Negative (Negative) Urine Bilirubin Negative (Negative) Urine Urobilinogen 1.0 A (0.2) mg/dL Ur Leukocyte Esterase Large A (Negative) U Hyaline Cast (Auto) NONE SEEN (0-2) /LPF Urine Microscopic RBC 0-2 (0-5) /HPF Urine Microscopic WBC 51-100 A (0-5) /HPF Ur Epithelial Cells Few (None Seen) /HPF Urine Bacteria Few A (None Seen) /HPF Urine Culture Reflexed YES (NO) Urine Opiates Level POSITIVE (NEGATIVE) Ur Methadone NEGATIVE (NEGATIVE) Urine Barbiturates NEGATIVE (NEGATIVE) Ur Phencyclidine (PCP) NEGATIVE (NEGATIVE) Urine Amphetamine NEGATIVE (NEGATIVE) U Benzodiazepine Level NEGATIVE (NEGATIVE) Urine Cocaine NEGATIVE (NEGATIVE) Urine Marijuana (THC) NEGATIVE (NEGATIVE) Ethyl Alcohol (0-10) mg/dL - Progress Progress: improved, re-examined Progress Note: 01/12/23 10:38 This patient's medical issue is 1 of moderate complexity. Level complexity in the work-up performed is based on review of the patient's past medical history, review of the patient's medication list, review of the patient's drug allergy list, history of present illness and physical findings on examination. The work-up in this patient includes CT scan of the head, placement of intravenous line, twelve-lead EKG, T4 and TSH, CMP, CBC, troponin level, urinalysis, alcohol level and urine drug screen. We are awaiting the results of these studies. CT scan of the head was interpreted by the radiologist and I reviewed the impression. The CT scan of the head without contrast shows a normal nonacute brain. 01/12/23 11:02 Patient had another labs that she was supposed to have drawn today and therefore I ordered those studies. Those studies will be sent to the patient's primary care provider and she will follow-up there. I reviewed the work-up here in the emergency department. Patient has a significant urinary tract infection which likely is the cause of her dizziness. The remainder of her work-up shows no acute or emergent medical issues. We are providing her with 1 g of Rocephin intravenously followed by outpatient antibiotics that we will remotely be sent to her pharmacy. Counseled pt/family regarding: lab results, diagnosis, need for follow-up, rad results Medical Desision Making - Diagnostic Testing Diagnostic test were ordered, analyzed, and reviewed by me: Yes Radiological Interpretation: Reviewed by me, Teleradiologist Report - Risk of complications The pt has a mod risk of morbidity or mortality based on: Need for prescription drug management - Departure Departure Disposition: Home Clinical Impression: Dizziness, UTI (urinary tract infection) Condition: Stable Critical Care Time: No Referrals: SHITAL VASQUEZ DO [Primary Care Provider] - Follow up/PCP as directed Additional Instructions: Drink plenty of fluids. Take your medication as prescribed. Follow-up with your primary care provider for further evaluation and management in the next 3 to 5 days. Prescriptions: Ciprofloxacin [Cipro 500 MG] 500 mg PO BID #14 tablet
[2023-01-12 09:53] LABS: Absolute Neutrophil Ct (ANC) 4.71 x10^3/uL (1.4-6.9); BASOPHIL % 0.8 % (0.0-0.4); Basophil (Absolute #) 0.08 x10^3/uL (0-0.4); Eosinophil % 2.4 % (0.00-5.0); Eosinophil (Absolute #) 0.23 x10^3/uL (0-0.5); Hemoglobin 14.1 g/dL (12.0-16.0); IMMATURE GRAN # 0.03 x10^3u/L (0.00-0.03); IMMATURE GRAN % 0.3 % (0.00-0.4); Lymphocyte (Absolute #) 3.67 x10^3/uL (1.0-4.6); Lymphocytes % 38.8 % (24.0-44.0); Mean Corpuscular Hemoglobin 28.2 pg (26-32); Mean Corpuscular Hgb Concent. 32.8 g/dL (32-36); Mean Platelet Volume 11.3 fL (7.5-11.0); Monocyte (Absolute #) 0.75 x10^3/uL (0.0-1.3); Monocytes % 7.9 % (0.0-12.0); Neutrophil % 49.8 % (36.0-66.0); Platelet Count 176 x10^3/uL (150-450); Red Cell Distribution Width 12.5 % (11.5-14.0); White Blood Count 9.5 x10^3/uL (4.0-10.5)
[2023-01-12 09:56] LABS: Appearance Cloudy (Clear); Bacteria Few /HPF (None Seen); Bilirubin Negative (Negative); Blood Negative (Negative); Epithelial Cells Few /HPF (None Seen); Glucose, Urine Negative (Negative); Hyaline Casts NONE SEEN /LPF (0-2); Ketones Negative (Negative); Leukocyte Esterase Large (Negative); Nitrite Negative (Negative); Protein,Urine Dip Trace (Negative); RBC 0-2 /HPF (0-5); WBC 51-100 /HPF (0-5)
[2023-01-12] MEDS ORDERED: ANTIVERT 25 MG ONE (09:57)
[2023-01-12 10:02] LABS: ADD URINE CULTURE? YES (NO)
[2023-01-12] MEDS ORDERED: Zofran 4 MG/2 ML VIAL IV ONE (10:07)
[2023-01-12 10:11] LABS: Amphetamine,Urine NEGATIVE (NEGATIVE); Barbiturate,Urine NEGATIVE (NEGATIVE); Benzodiazepine,Urine NEGATIVE (NEGATIVE); Cocaine,Urine NEGATIVE (NEGATIVE); Methadone,Urine NEGATIVE (NEGATIVE); Opiate,Urine POSITIVE (NEGATIVE); PCP,Urine NEGATIVE (NEGATIVE); THC,Urine NEGATIVE (NEGATIVE)
[2023-01-12 10:13] VITALS: RESP 18
[2023-01-12 10:13] LABS: ALBUMIN 4.1 g/dL (3.5-5.0); ALKALINE PHOSPHATASE 105 U/L (38-126); ANION GAP 12.5 MEQ/L (5-15); BLOOD UREA NITROGEN 20 mg/dL (7-17); CHLORIDE 107 mmol/L (98-107); Carbon Dioxide 27 mmol/L (22-30); Creatinine 1 0.66 mg/dL (0.52-1.04); EST GLOMERULAR FILTRATION RATE > 60.0 ML/MIN; ETHYL ALCOHOL < 10 mg/dL (0-10); Glucose 113 mg/dL (74-106); MAGNESIUM 2.2 mg/dL (1.6-2.3); Potassium 3.5 mmol/L (3.5-5.1); SGOT/AST 48 U/L (14-36); SGPT/ALT 35 U/L (0-35); SODIUM 143 mmol/L (137-145)
[2023-01-12] MEDS ORDERED: Zofran 4 MG/2 ML VIAL ONE (10:16)
--- NOTE | 2023-01-12 10:31 | XRAY ---
Indication: Dizziness. Nausea and vomiting. Multiple contiguous axial images obtained through the head without contrast. Comparison: April 17, 2022 Normal appearing brain parenchyma and ventricles. Bony calvarium intact again with incidental hyperostosis frontalis interna. Visualized paranasal sinuses and mastoid air cells are clear. Impression: Continued normal CT head without contrast exam.
[2023-01-12 10:44] LABS: T4 (Thyroxine) 14.6 ug/dL (5.53-10.96); TSH, 3RD Generation 2.45 mIU/L (0.47-4.68)
[2023-01-12] MEDS ORDERED: ROCEPHIN 1 Gm-D5w 50 ml Bag** 1 G/50 ML IVPB IV STA (11:02)
[2023-01-12] MEDS ORDERED: ROCEPHIN 1 Gm-D5w 50 ml Bag** 1 G/50 ML IVPB IV ONE (11:05)
[2023-01-12 11:37] LABS: Risk Ratio 4.5
[2023-01-12 11:44] VITALS: BP 126/74; PULSE 74; O2SAT 98
[2023-01-12 12:21] LABS: Slide Review 1 YES
== END 2023-01-12 11:41 | disposition home or self-care (01) ==
LOC: ED 08:56
DX: N39.0 Urinary tract infection, site not specified (principal); R42 Dizziness and giddiness; R11.0 Nausea; I10 Essential (primary) hypertension; Z79.899 Other long term (current) drug therapy
CPT/HCPCS: 36000; 36415; 70450; 80053; 80061; 80307; 81001; 82077; 83036; 83721; 83735; 84436; 84443; 84484; 85025; 87077; 87086; 87186; 93005; 93041; 96365; 96374; 99284; J0696; J2405; A9270-GY

== ENCOUNTER 2023-07-08 14:27 | Emergency (ER) | payer MEDICARE ==
[2023-07-08 14:46] VITALS: RESP 18; TEMP 97; O2SAT 96
[2023-07-08 15:04] LABS: Appearance Clear (Clear); Bacteria None Seen /HPF (None Seen); Bilirubin Negative (Negative); Blood Negative (Negative); Epithelial Cells Rare /HPF (None Seen); Glucose, Urine >=1000 mg/dL (Negative); Hyaline Casts NONE SEEN /LPF (0-2); Ketones Negative (Negative); Leukocyte Esterase Trace (Negative); Nitrite Negative (Negative); Protein,Urine Dip Negative (Negative); RBC 0-2 /HPF (0-5); Urobilinogen 0.2 mg/dL (0.2)
--- NOTE | 2023-07-08 15:06 | ERPHSYRPT ---
- History of Present Illness Time Seen by Provider: 07/08/23 15:01 Source: patient Exam Limitations: no limitations Patient Subjective Stated Complaint: C/O pain in left flank and left groin. Patient states the pain began the evening of 07/06/23. Triage Nursing Assessment: Patient ambulated back to ER without difficulties. She is alert and oriented. Skin tone normal. Denies N/V or diarrhea. No abdominal pain. Skin tone normal; denies injury. Physician History: This 62-year-old female came to the emergency room with complaining of left groin and left sacroiliac joint area pain started 2 days ago and it got worse to day so she came to the ER. She denies any blood in her urine any pain during urination any flank pain nausea vomiting abdominal pain or diarrhea. Patient has a same type of episode before and at that time she was diagnosed with sciatica. Timing/Duration: day(s) (2-3 days) Severity: moderate Associated Symptoms: denies symptoms Allergies/Adverse Reactions: coconut Allergy (Severe, Verified 07/08/23 14:36) Anaphylactic Reaction codeine [Codeine] Allergy (Mild, Verified 07/08/23 14:36) Shortness of Breath latex Allergy (Mild, Verified 07/08/23 14:36) Rash states "have a little on my waistband" Home Medications: Furosemide [Lasix] 40 mg PO DAILY 07/15/13 [History] Modafinil [Provigil] 200 mg PO DAILY 07/15/13 [History] Famotidine 20 mg [Pepcid 20 MG] 20 mg PO BID 10/25/16 [History] Amlodipine Besylate 10 mg PO DAILY 11/09/20 [History] Topiramate [Topamax] 50 mg PO DAILY 11/09/20 [History] Docusate Sodium [Colace] 100 mg PO DAILY 08/08/22 [History] Levothyroxine Sodium 100 Mcg [Synthroid 100 Mcg] 175 mcg PO DAILY 08/08/22 [History] Hx Tetanus, Diphtheria Vaccination/Date Given: Yes Hx Influenza Vaccination/Date Given: Yes Hx Pneumococcal Vaccination/Date Given: Yes Immunizations Up to Date: Yes Travel Risk - International Travel Have you traveled outside of the country in past 3 weeks: No - Coronavirus Screening Are you exhibiting any of the following symptoms?: No Close contact with a COVID-19 positive Pt in past 14-21 Days: No - Vaccine Status Have you recieved a Covid-19 vaccination: Yes Furniture [employer]: Moderna - Vaccination Dates Date of 2cond Vaccination (if applicable): 2020 - Review of Systems Constitutional: No Fever, No Chills Eyes: No Symptoms Ears, Nose, & Throat: No Symptoms Respiratory: No Cough, No Dyspnea Cardiac: No Chest Pain, No Edema, No Syncope Abdominal/Gastrointestinal: No Abdominal Pain, No Nausea, No Vomiting, No Diarrhea Genitourinary Symptoms: No Dysuria Musculoskeletal: Other (left groin and sacroilliac area pain. Pain increase when sleep on that side), No Back Pain, No Neck Pain, No Fall Skin: No Rash Neurological: No Dizziness, No Focal Weakness, No Sensory Changes Psychological: No Symptoms Endocrine: No Symptoms All Other Systems: Reviewed and Negative - Past Medical History Pertinent Past Medical History: Yes Neurological History: Seizures, Other ENT History: Cataracts Cardiac History: Hypertension Respiratory History: No Pertinent History Endocrine Medical History: Hypothyroidism, Other Musculoskeletal History: Osteoarthritis GI Medical History: Diverticulosis, Gallbladder Disease History: No Pertinent History Psycho-Social History: Anxiety Female Reproductive Disorders: No Pertinent History Other Medical History: SX HX: ACL/MENISCAL TEAR WITH REPAIR LEFT KNEE 2014, SINUS SURGERY FOR SLEEP APNEA, HYSTERECTOMY, LUMPECTOMY BREASTS, CATARACTS. REPORTS HX OF BACK INJURY WITH HX OF INJECTIONS X 2 IN THE PAST 2 YEARS WITH GOOD RELIEF. - Past Surgical History Past Surgical History: Yes Neuro Surgical History: No Pertinent History Cardiac: No Pertinent History Respiratory: No Pertinent History Gastrointestinal: Cholecystectomy Genitourinary: No Pertinent History Musculoskeletal: Orthopedic Surgery Female Surgical History: Hysterectomy, Lumpectomy Other Surgical History: ACL/MENISCAL TEAR WITH REPAIR LEFT KNEE 2014, SINUS SURGERY FOR SLEEP APNEA - Social History Smoking Status: Never smoker Exposure to second hand smoke: No Drug Use: none Patient Lives Alone: Yes Significant Family History: no pertinent family hx - Nursing Vital Signs Nursing Vital Signs: Initial Vital Signs Blood Pressure 127/71 07/08/23 14:35 O2 Sat by Pulse Oximetry 95 07/08/23 14:35 Pain Scale Pain Intensity 8 - Physical Exam General Appearance: no apparent distress Eye Exam: PERRL/EOMI Ears, Nose, Throat Exam: normal ENT inspection Neck Exam: normal inspection Respiratory Exam: normal breath sounds Cardiovascular Exam: regular rate/rhythm Gastrointestinal/Abdomen Exam: soft Pelvic Exam: not done Rectal Exam: deferred Back Exam: normal inspection, normal range of motion Extremity Exam: normal inspection Neurologic Exam: alert, oriented x 3, cooperative, nml station & gait, No motor deficits, No sensory deficit, No motor weakness, No abnormal gait Skin Exam: normal color SpO2 Interpretation: normal SpO2: 96 O2 Delivery: Room Air - Course Nursing assessment & vital signs reviewed: Yes Ordered Tests: Active Orders 24 hr Category Date Time Status CULTURE,URINE Stat Lab 07/08/23 14:47 Received UA W/RFX UR CULTURE Stat Lab 07/08/23 14:47 Completed Medication Summary Discontinued Medications Generic Name Dose Route Start Last Admin Trade Name Shahnaz PRN Reason Stop Dose Admin Ketorolac Tromethamine 60 mg 07/08/23 15:00 07/08/23 15:19 Ketorolac Tromethamine 30 Mg/Ml Inj IM 07/08/23 15:01 60 mg STAT ONE Administration Ketorolac Tromethamine Confirm 07/08/23 15:18 Ketorolac Tromethamine 30 Mg/Ml Inj Administered 07/08/23 15:19 Dose 60 mg .ROUTE .STK-MED ONE Orphenadrine Citrate 60 mg 07/08/23 15:00 07/08/23 15:19 Orphenadrine Citrate 60 Mg/2 Ml Vial IM 07/08/23 15:01 60 mg STAT ONE Administration Orphenadrine Citrate Confirm 07/08/23 15:18 Orphenadrine Citrate 60 Mg/2 Ml Vial Administered 07/08/23 15:19 Dose 60 mg .ROUTE .STK-MED ONE Lab/Rad Data: Laboratory Results 07/08/23 Range/Units 14:47 Urine Color Yellow (Yellow) Urine Appearance Clear (Clear) Urine pH 5.0 (4.6-8.0) Ur Specific [place] 1.020 (1.005-1.030) Urine Protein Negative (Negative) Urine Glucose (UA) >=1000 A (Negative) mg/dL Urine Ketones Negative (Negative) Urine Blood Negative (Negative) Urine Nitrite Negative (Negative) Urine Bilirubin Negative (Negative) Urine Urobilinogen 0.2 (0.2) mg/dL Ur Leukocyte Esterase Trace A (Negative) U Hyaline Cast (Auto) NONE SEEN (0-2) /LPF Urine Microscopic RBC 0-2 (0-5) /HPF Urine Microscopic WBC 6-10 A (0-5) /HPF Ur Epithelial Cells Rare (None Seen) /HPF Urine Bacteria None Seen (None Seen) /HPF Urine Culture Reflexed YES (NO) - Progress Progress: unchanged Counseled pt/family regarding: diagnosis, need for follow-up Medical Desision Making - Risk of complications Minimal Risk: Minimal risk of morbidity - Departure Departure Disposition: Home Clinical Impression: Back pain, sacroiliac Sciatica neuralgia Qualifiers: Laterality: left Qualified Code(s): M54.32 - Sciatica, left side UTI (urinary tract infection) Qualifiers: Urinary tract infection type: site unspecified Hematuria presence: without hematuria Qualified Code(s): N39.0 - Urinary tract infection, site not specified Condition: Stable Critical Care Time: No Referrals: SHITAL VASQUEZ DO [Primary Care Provider] - Follow up/PCP as directed Instructions: Sacroiliac Joint Pain, Sciatica (DC), Sacroiliac Joint Pain ED Additional Instructions: Please take 400 mg of ibuprofen and 500 mg of Tylenol together with food 3 times a day for next 2 to 3 days. Follow-up with your primary care physician if symptoms does not resolve in the next 2 days. Discharge/Care Plan SHEILALYNDSEY LIZ was seen on 07/08/23 in the Emergency Room. The patient was counseled regarding Diagnosis,Lab results, Imaging studies, need for follow up and when to return to the Emergency Room. Prescriptions given: Discharge Note I have spoken with the patient and/or caregivers. I have explained the patient's condition, diagnosis and treatment plan based on the information available to me at this time. I have answered the patient's and/or caregiver's questions and addressed any concerns. The patient and/or caregivers have as good understanding of the patient's diagnosis, condition and treatment plan as can be expected at this point. The vital signs have been stable. The patient's condition is stable and appropriate for discharge from the emergency department. The patient will pursue further outpatient evaluation with the primary care physician or other designated or consulting physician as outlined in the discharge instructions. The patient and/or caregivers are agreeable to this plan of care and follow-up instructions have been explained in detail. The patient and/or caregivers have received these instruction. The patient/and or caregivers are aware that any significant change in condition or worsening of symptoms should prompt an immediate return to this or the closest emergency department or call 911. SHEILALYNDSEY was seen on 07/08/23 n the Emergency Room. At that time you were treated for an emergent condition, during your visit Laboratory, Radiology and/or other procedures may have been ordered. It is very important that you follow-up with your Primary Care Physician SHITAL VASQUEZ, within the next 24-48 hours to review your Emergency Room visit and the final results of testing that was ordered. Some test results such as Urine Cultures, Blood Cultures, and other cultures if ordered will not be finalized for 24-48 hours. If you do not have a Primary Care Provider please call the medical records dep artment at [phone] ext [phone] to obtain a copy of your results or you may sign into our patient portal to obtain these results by visiting us @ [email or web address] and completing the following steps: 1. Click on the Patient Portal link 2. Click the Patient Self Enrollment Link to complete the enrollment form and entering your 3. Once the enrollment form is completed you will receive an email with a temporary ID and password at the email address you provided. 4. Next choose a user name and password. Your user name must be at least 4 characters long and your password must be at least 4 characters long. 5. Choose a security question from the list and provide your answer to the question. If you already have signed into the Health Portal you may access your Health Care Information 18/12 by the following steps: 1. Login to our website @ [email or web address] 2. Enter your original user name and password. FAQS The [facility] Health Portal is an online tool that contains your Lab Results, Radiology Reports, Visit History, Discharge Instructions and Health Summary Lab and Radiology Results will not be available for 72 hours on the portal. The Portal is a secure site, passwords are encryted and URLs are re-written so they cannot be copied and pasted. You and authorized family members are the only ones who can access your Portal. Also there is a timeout feature that protects your information if you leave the Portal page open. If you have technical difficulty please use the Contact Us link on the page this will allow you to submit any questions you have regarding the Portal or you may contact the Medical Record Department at [phone] ext [phone]. Prescriptions: Smz/Tmp Ds Tablet [Bactrim Ds Tablet] 1 udtab PO BID #20 tablet
[2023-07-08 15:08] LABS: ADD URINE CULTURE? YES (NO)
[2023-07-08 15:17] VITALS: BP 114/68; PULSE 63
[2023-07-08] MEDS ORDERED: Norflex 60 MG/2 ML ONE (15:18)
[2023-07-08] MEDS ORDERED: TORAdol 30 mg Injection ONE (15:18)
[2023-07-08] MEDS: TORAdol 30 mg Injection IM ONE (15:19)
[2023-07-08] MEDS: Norflex 60 MG/2 ML IM ONE (15:19)
== END 2023-07-08 15:47 | disposition home or self-care (01) ==
LOC: ED 14:27
DX: M54.32 Sciatica, left side (principal); M46.1 Sacroiliitis, not elsewhere classified; N39.0 Urinary tract infection, site not specified; I10 Essential (primary) hypertension; Z79.899 Other long term (current) drug therapy
CPT/HCPCS: 81001; 87077; 87086; 87186; 96372; 99283; J1885; J2360

== ENCOUNTER 2023-07-25 10:16 | Day surgery (SDC) | payer MEDICARE ==
[2023-07-25] MEDS ORDERED: GELSYN-3 IU ONE ×2 (10:17)
[2023-07-25] MEDS ORDERED: DIPRIVAN 200 MG/20 ML IV ONE (12:07)
[2023-07-25] MEDS ORDERED: Lactated Ringers 1,000 ML IV ONE (12:17)
--- NOTE | 2023-07-25 14:08 | XRAY ---
Indication: Right knee injection. Intraoperative fluoroscopy provided for 6 seconds. Single digital spot image submitted for interpretation demonstrates needle tip projecting over right femur intercondylar notch. Small amount of contrast injected for needle tip placement. Correlate with intraoperative findings/report.
--- NOTE | 2023-07-25 14:08 | XRAY ---
Indication: Left knee injection. Intraoperative fluoroscopy provided for 7 seconds. Single digital spot image submitted for interpretation demonstrates needle tip projecting over left femur intercondylar notch. Small amount of contrast injected for needle tip placement. Correlate with intraoperative findings/report.
--- NOTE | 2023-07-25 15:13 | XRAY ---
6 seconds of fluoroscopy was used in surgery for a right intra-articular knee injection.
--- NOTE | 2023-07-25 15:13 | XRAY ---
7 seconds of fluoroscopy was used in surgery for a left intra-articular knee injection.
== END 2023-07-25 12:41 | disposition home or self-care (01) ==
LOC: SDC-PAIN 10:16
PROVIDERS: ATTEND Psychiatry & Neurology Pain Medicine
DX: M17.0 Bilateral primary osteoarthritis of knee (principal)
CPT/HCPCS: 20610; 73560; 77002; J2704; J7328; Q9966

== ENCOUNTER 2023-08-01 10:38 | Day surgery (SDC) | payer MEDICARE ==
[2023-08-01] MEDS ORDERED: GELSYN-3 IU ONE (10:39)
[2023-08-01] MEDS ORDERED: DIPRIVAN 200 MG/20 ML IV ONE (12:29)
[2023-08-01] MEDS ORDERED: Lactated Ringers 1,000 ML IV ONE (14:01)
--- NOTE | 2023-08-01 15:02 | XRAY ---
Indication: Right knee injection. Intraoperative fluoroscopy provided for 7 seconds. Single digital spot image submitted for interpretation demonstrates needle tip projects over right femur intercondylar notch. Small amount of contrast injected for needle tip placement. Correlate with intraoperative findings/report.
--- NOTE | 2023-08-01 15:02 | XRAY ---
Indication: Left knee injection. Intraoperative fluoroscopy provided for 4 seconds. Single digital spot image submitted for interpretation demonstrates needle tip projects over left femur intercondylar notch. Small amount of contrast injected for needle tip placement. Correlate with intraoperative findings/report.
--- NOTE | 2023-08-01 15:08 | XRAY ---
4 seconds of fluoroscopy was used in surgery for a left intra-articular knee injection.
--- NOTE | 2023-08-01 15:08 | XRAY ---
7 seconds of fluoroscopy was used in surgery for a right intra-articular knee injection.
== END 2023-08-01 13:00 | disposition home or self-care (01) ==
LOC: SDC-PAIN 10:38
PROVIDERS: ATTEND Psychiatry & Neurology Pain Medicine
DX: M17.0 Bilateral primary osteoarthritis of knee (principal)
CPT/HCPCS: 20610; 73560; 77002; J2704; J7328; Q9966

== ENCOUNTER 2023-08-06 18:27 | Emergency (ER) | payer MEDICARE ==
[2023-08-06 20:20] VITALS: RESP 20
[2023-08-06] MEDS ORDERED: TYLENOL 325 MG ONE (20:42)
[2023-08-06] MEDS ORDERED: Sodium Chloride 0.9% 1000 ML 1,000 ML ONE (20:42)
[2023-08-06] MEDS ORDERED: TORAdol 30 mg Injection ONE (20:42)
[2023-08-06] MEDS ORDERED: Zofran 4 MG/2 ML VIAL ONE (20:42)
[2023-08-06] MEDS: Sodium Chloride 0.9% 1000 ML 1,000 ML IV STA (21:00)
[2023-08-06] MEDS: TORAdol 30 mg Injection IV ONE (21:01)
[2023-08-06] MEDS: Zofran 4 MG/2 ML VIAL IV ONE (21:01)
[2023-08-06] MEDS: TYLENOL 325 MG PO ONE (21:01)
[2023-08-06 21:09] LABS: Absolute Neutrophil Ct (ANC) 6.66 x10^3/uL (1.4-6.9); BASOPHIL % 0.8 % (0.0-0.4); Basophil (Absolute #) 0.09 x10^3/uL (0-0.4); Eosinophil (Absolute #) 0.21 x10^3/uL (0-0.5); Hemoglobin 15.2 g/dL (12.0-16.0); IMMATURE GRAN # 0.04 x10^3u/L (0.00-0.03); IMMATURE GRAN % 0.4 % (0.00-0.4); Lymphocyte (Absolute #) 2.89 x10^3/uL (1.0-4.6); Lymphocytes % 27.1 % (24.0-44.0); Mean Cell Volume 86.3 fL (78-100); Mean Corpuscular Hemoglobin 28.5 pg (26-32); Mean Platelet Volume 10.2 fL (7.5-11.0); Monocyte (Absolute #) 0.76 x10^3/uL (0.0-1.3); Monocytes % 7.1 % (0.0-12.0); Neutrophil % 62.6 % (36.0-66.0); Platelet Count 238 x10^3/uL (150-450); Red Blood Count 5.33 x10^6/uL (4.1-5.4); Red Cell Distribution Width 12.4 % (11.5-14.0); White Blood Count 10.7 x10^3/uL (4.0-10.5)
[2023-08-06 21:42] LABS: ALBUMIN 4.3 g/dL (3.5-5.0); BILIRUBIN,TOTAL 0.9 mg/dL (0.2-1.3); Calcium 9.1 mg/dL (8.4-10.2); Creatinine 1 0.63 mg/dL (0.52-1.04); EST GLOMERULAR FILTRATION RATE 100.9 ML/MIN; Potassium 3.7 mmol/L (3.5-5.1); Total Protein 7.3 g/dL (6.3-8.2)
--- NOTE | 2023-08-06 23:12 | XRAY ---
CLINICAL HISTORY: abdominal pain TECHNIQUE: CT scan of the abdomen and pelvis was performed with IV contrast. "One of the following dose reduction techniques were utilized for this exam: Automated exposure control, adjustment of the mA and/or kV according to patient size, and use of iterative reconstruction." 80 CC Isovue 370 was given as an IV contrast. Total DLP: 2497.43 . COMPARISON: None FINDINGS: An isodense focus is identified in the distal common bile duct measuring around 6 mm on axial section resulting in a relatively abrupt cut-off with mild proximal extrahepatic and intrahepatic biliary ductal dilatation. The proximal common bile duct measures approximately 9.8 mm on the coronal section. Radiological appearances may be secondary to choledocholithiasis. Clinically and laboratory correlation including LFTs and if indicated, an MRCP/ERCP is recommended for further evaluation. Liver is otherwise normal in size with normal parenchymal enhancement and regular margins. No discrete suspicious lesion is identified within the liver parenchyma. Portal veins and hepatic veins are normally opacified with contrast. The spleen appears normal without any discrete suspicious lesion within it. The pancreas shows homogenous parenchymal enhancement without pancreatic ductal dilatation or peripancreatic fat stranding. The gallbladder is not clearly visualized on this examination. The left adrenal gland appears bulky with the suggestion of a nodule within it measuring around 17 x 13 mm. The right adrenal gland appears normal. Both kidneys are normal in size, shape and orientation without convincing nephrolithiasis, hydronephrosis or perinephric fat stranding. Bilateral ureters normal in caliber without intraluminal calculus or hydroureter. Normal excretion of contrast is identified from bilateral collecting systems. The urinary bladder is optimally distended with normal wall thickness. No intravesical calculus or mass lesion is identified. Few pelvic phleboliths are noted. Numerous outpouchings are identified along the descending and sigmoid colon representing colonic diverticulosis without features of acute diverticulitis. Moderate colonic fecal loading is identified. The appendix is not separately visualized. Stomach and small bowel loops appear grossly normal without signs of bowel obstruction or pneumoperitoneum. No evidence of ascites. No significant abdominal or pelvic lymphadenopathy is identified. Mesh is identified along the anterior abdominal wall in the midline without features of a hernia on current examination. Using appropriate lung windows settings, minimal bibasilar atelectasis is identified. Rest of the visualized lung bases are grossly clear. Using appropriate bone window settings, spondylotic changes are identified in the visualized thoracolumbar spine as evident by multilevel osteophytosis with intervertebral vacuum phenomena and lower lumbar facet arthropathy. Posterior osteophyte is identified at T8-T9 level resulting in canal stenosis with possible cord compression. If indicated, an MRI of the thoracic spine is recommended for further evaluation. Lucent lesion is identified within T10, L4 and L5 vertebral bodies. These likely represent hemangiomas however, clinical correlation is advised. Pseudoarthrosis of the transverse processes of L5 and S1 vertebral body levels is noted on the left side. IMPRESSION: Small isodense focus in the distal common bile duct resulting in a relatively abrupt cut off with mild proximal extra and intrahepatic biliary ductal dilatation. Radiological appearances may be secondary to choledocholithiasis. Clinical and laboratory correlation (including serum LFTs) and if indicated, MRCP/ERCP is recommended for further evaluation and management. Colonic diverticulosis without features of acute diverticulitis. Left adrenal nodule? Adenoma. Large posterior osteophyte at T8-T9 level on the left side resulting in significant canal stenosis. If clinically indicated, an MRI of the thoracic spine is recommended to rule assess for cord compression. Lucent lesions within T10, L4 and L5 vertebral bodies, likely representing hemangiomas however, clinical correlation is advised. Pseudoarthrosis of the transverse processes of L5 and S1 vertebral bodies on the left side. Electronically Signed by: Lina Solomon MD. (08/06/2023 23:07:47 EDT)
--- NOTE | 2023-08-07 01:46 | ERPHSYRPT ---
- History of Present Illness Time Seen by Provider: 08/06/23 20:10 Source: patient Exam Limitations: no limitations Patient Subjective Stated Complaint: pt reports eating liver she prepared from frozen this evening and immediately after eating she starting having abdominal pain and projectile vomiting. reports burning to her upper abdomen. Triage Nursing Assessment: pt is aox3, pupils perrl, afebrile, resps easy and non labored, radial pulses strong and equal, cap refill < 3 seconds, pt abd soft, tender to the upper quadrants, bowel sounds present, pt skin pink warm dry, pt mucous membranes appear moist. Physician History: Patient is here with epigastric pain. Patient states that she was eating tonight had sudden onset of epigastric pain. Patient has had her gallbladder previously removed. She has not tried anything for pain prior to arrival. States that she had her gallbladder out when she was in her 20s. No falls no trauma. No fever no chills. Patient does not feel like she has generalized malaise. No chest pain Allergies/Adverse Reactions: coconut Allergy (Severe, Verified 08/06/23 20:20) Anaphylactic Reaction codeine [Codeine] Allergy (Mild, Verified 08/06/23 20:20) Shortness of Breath latex Allergy (Mild, Verified 08/06/23 20:20) Rash states "have a little on my waistband" Home Medications: Furosemide [Lasix] 40 mg PO DAILY 07/15/13 [History] Modafinil [Provigil] 200 mg PO DAILY 07/15/13 [History] Famotidine 20 mg [Pepcid 20 MG] 20 mg PO BID 10/25/16 [History] Amlodipine Besylate 10 mg PO DAILY 11/09/20 [History] Topiramate [Topamax] 50 mg PO DAILY 11/09/20 [History] Docusate Sodium [Colace] 100 mg PO DAILY 08/08/22 [History] Levothyroxine Sodium 100 Mcg [Synthroid 100 Mcg] 175 mcg PO DAILY 08/08/22 [History] Hx Tetanus, Diphtheria Vaccination/Date Given: Yes Hx Influenza Vaccination/Date Given: Yes Hx Pneumococcal Vaccination/Date Given: No Immunizations Up to Date: Yes Travel Risk - International Travel Have you traveled outside of the country in past 3 weeks: No - Coronavirus Screening Are you exhibiting any of the following symptoms?: No Close contact with a COVID-19 positive Pt in past 14-21 Days: No - Vaccine Status Have you recieved a Covid-19 vaccination: Yes Transmission Mechanic: Moderna - Vaccination Dates Date of 2cond Vaccination (if applicable): unk - Past Medical History Pertinent Past Medical History: Yes Neurological History: Seizures, Other ENT History: Cataracts Cardiac History: Hypertension Respiratory History: No Pertinent History Endocrine Medical History: Hypothyroidism, Other Musculoskeletal History: Osteoarthritis GI Medical History: Diverticulosis, Gallbladder Disease History: No Pertinent History Psycho-Social History: Anxiety Female Reproductive Disorders: No Pertinent History Other Medical History: SX HX: ACL/MENISCAL TEAR WITH REPAIR LEFT KNEE 2014, SINUS SURGERY FOR SLEEP APNEA, HYSTERECTOMY, LUMPECTOMY BREASTS, CATARACTS. REPORTS HX OF BACK INJURY WITH HX OF INJECTIONS X 2 IN THE PAST 2 YEARS WITH GOOD RELIEF. - Past Surgical History Past Surgical History: Yes Neuro Surgical History: No Pertinent History Cardiac: No Pertinent History Respiratory: No Pertinent History Gastrointestinal: Cholecystectomy Genitourinary: No Pertinent History Musculoskeletal: Orthopedic Surgery Female Surgical History: Hysterectomy, Lumpectomy Other Surgical History: ACL/MENISCAL TEAR WITH REPAIR LEFT KNEE 2014, SINUS SURGERY FOR SLEEP APNEA. knee injected 08/18 - Social History Smoking Status: Never smoker Exposure to second hand smoke: No Drug Use: none Patient Lives Alone: Yes Significant Family History: no pertinent family hx - Nursing Vital Signs Nursing Vital Signs: Initial Vital Signs Pulse Rate 71 08/06/23 20:15 Respiratory Rate 20 08/06/23 20:15 Blood Pressure 160/89 08/06/23 20:15 O2 Sat by Pulse Oximetry 98 08/06/23 20:15 Pain Scale Pain Intensity 4 - Physical Exam SpO2: 94 Comments: 08/07/23 01:52 Review of Systems Constitutional: Negative for fever. HENT: Negative for congestion. Respiratory: Negative for shortness of breath. Cardiovascular: Negative for chest pain. Gastrointestinal: Abdominal Pain Genitourinary: Negative for dysuria. Musculoskeletal: Negative for back pain. Skin: Negative for rash. Neurological: Negative for headaches. Psychiatric/Behavioral: Negative for behavioral problems. All other systems reviewed and are negative. Physical Exam Vitals signs and nursing note reviewed. Constitutional: Appearance: Patient is well-developed. HENT: Head: Normocephalic and atraumatic. Eyes: Conjunctiva/sclera: Conjunctivae normal. Neck: Musculoskeletal: Normal range of motion. Trachea: No tracheal deviation. Cardiovascular: Rate and Rhythm: Normal rate. Pulmonary: Effort: Pulmonary effort is normal. No respiratory distress. Abdominal: Palpations: Abdomen is soft. Midepigastric tenderness without rebound or guarding. Nonacute abdomen Musculoskeletal: General: No deformity. Skin: General: Skin is warm and dry. Neurological/ Psychiatric: Mental Status: Mental status, behavior, interaction with environment is appropriate for patient's age and condition - Course Nursing assessment & vital signs reviewed: Yes Ordered Tests: Active Orders 24 hr Category Date Time Status IV Insertion STAT Care 08/06/23 20:35 Active ABDOMEN AND PELVIS W CONTRAST [CT] Stat Exams 08/06/23 20:35 Completed AMYLASE Stat Lab 08/06/23 21:01 Completed CBC W DIFF Stat Lab 08/06/23 21:01 Completed CMP Stat Lab 08/06/23 21:01 Completed LIPASE Stat Lab 08/06/23 21:01 Completed TROPONIN Q4H Lab 08/06/23 21:01 Completed TROPONIN Q4H Lab 08/07/23 00:40 Completed TROPONIN Q4H Lab 08/07/23 04:45 Ordered UA W/RFX UR CULTURE Stat Lab 08/06/23 23:14 Completed Medication Summary Discontinued Medications Generic Name Dose Route Start Last Admin Trade Name Jasielq PRN Reason Stop Dose Admin Acetaminophen 975 mg 08/06/23 20:35 08/06/23 21:01 Acetaminophen 325 Mg Tablet PO 08/06/23 20:36 975 mg STAT ONE Administration Acetaminophen Confirm 08/06/23 20:42 Acetaminophen 325 Mg Tablet Administered 08/06/23 20:43 Dose 975 mg .ROUTE .STK-MED ONE Sodium Chloride 1,000 mls @ 999 mls/hr 08/06/23 20:35 08/06/23 22:55 Sodium Chloride 0.9% 1000 Ml IV 08/06/23 21:35 Infused .Q1H1M STA Infusion Sodium Chloride Confirm 08/06/23 20:42 Sodium Chloride 0.9% 1000 Ml Administered 08/06/23 20:43 Dose 1,000 mls @ ud .ROUTE .STK-MED ONE Ketorolac Tromethamine 30 mg 08/06/23 20:35 08/06/23 21:01 Ketorolac Tromethamine 30 Mg/Ml Inj IV 08/06/23 20:36 30 mg STAT ONE Administration Ketorolac Tromethamine Confirm 08/06/23 20:42 Ketorolac Tromethamine 30 Mg/Ml Inj Administered 08/06/23 20:43 Dose 30 mg .ROUTE .STK-MED ONE Ondansetron HCl 4 mg 08/06/23 20:35 08/06/23 21:01 Ondansetron Hcl 4 Mg/2 Ml Vial IV 08/06/23 20:36 4 mg STAT ONE Administration Ondansetron HCl Confirm 08/06/23 20:42 Ondansetron Hcl 4 Mg/2 Ml Vial Administered 08/06/23 20:43 Dose 4 mg .ROUTE .STK-MED ONE Lab/Rad Data: Laboratory Result Diagrams 08/06/23 21:01 08/06/23 21:01 Laboratory Results 08/07/23 08/06/23 08/06/23 Range/Units 00:40 23:14 21:01 WBC (4.0-10.5) x10^3/uL RBC (4.1-5.4) x10^6/uL Hgb (12.0-16.0) g/dL Hct (35-47) % MCV (78-100) fL MCH (26-32) pg MCHC (32-36) g/dL RDW (11.5-14.0) % Plt Count (150-450) x10^3/uL MPV (7.5-11.0) fL Gran % (36.0-66.0) % Immature Gran % (Auto) (0.00-0.4) % Nucleat RBC Rel Count (0.00-0.1) % Eos # (Auto) (0-0.5) x10^3/uL Immature Gran # (Auto) (0.00-0.03) x10^3u/L Absolute Lymphs (auto) (1.0-4.6) x10^3/uL Absolute Monos (auto) (0.0-1.3) x10^3/uL Absolute Nucleated RBC (0.00-0.01) x10^3u/L Lymphocytes % (24.0-44.0) % Monocytes % (0.0-12.0) % Eosinophils % (0.00-5.0) % Basophils % (0.0-0.4) % Absolute Granulocytes (1.4-6.9) x10^3/uL Basophils # (0-0.4) x10^3/uL Sodium (135-145) mmol/L Potassium (3.5-5.1) mmol/L Chloride (98-107) mmol/L Carbon Dioxide (22-30) mmol/L Anion Gap (5-15) MEQ/L BUN (7-17) mg/dL Creatinine (0.52-1.04) mg/dL Estimated GFR ML/MIN Glucose (74-106) mg/dL Calcium (8.4-10.2) mg/dL Total Bilirubin (0.2-1.3) mg/dL AST (14-36) U/L ALT (0-35) U/L Alkaline Phosphatase (38-126) U/L Troponin I < 0.012 < 0.012 (0.000-0.034) ng/mL Serum Total Protein (6.3-8.2) g/dL Albumin (3.5-5.0) g/dL Amylase (30-110) U/L Lipase (23-300) U/L Urine Color Yellow (Yellow) Urine Appearance Clear (Clear) Urine pH 7.0 (4.6-8.0) Ur Specific [place] >=1.030 A (1.005-1.030) Urine Protein Negative (Negative) Urine Glucose (UA) >=1000 A (Negative) mg/dL Urine Ketones Negative (Negative) Urine Blood Negative (Negative) Urine Nitrite Negative (Negative) Urine Bilirubin Negative (Negative) Urine Urobilinogen 0.2 (0.2) mg/dL Ur Leukocyte Esterase Trace A (Negative) U Hyaline Cast (Auto) NONE SEEN (0-2) /LPF Urine Microscopic RBC 0-2 (0-5) /HPF Urine Microscopic WBC 6-10 A (0-5) /HPF Ur Epithelial Cells None Seen (None Seen) /HPF Urine Bacteria None Seen (None Seen) /HPF Urine Culture Reflexed YES (NO) 08/06/23 08/06/23 Range/Units 21:01 21:01 WBC 10.7 H (4.0-10.5) x10^3/uL RBC 5.33 (4.1-5.4) x10^6/uL Hgb 15.2 (12.0-16.0) g/dL Hct 46.0 (35-47) % MCV 86.3 (78-100) fL MCH 28.5 (26-32) pg MCHC 33.0 (32-36) g/dL RDW 12.4 (11.5-14.0) % Plt Count 238 (150-450) x10^3/uL MPV 10.2 (7.5-11.0) fL Gran % 62.6 (36.0-66.0) % Immature Gran % (Auto) 0.4 (0.00-0.4) % Nucleat RBC Rel Count 0.0 (0.00-0.1) % Eos # (Auto) 0.21 (0-0.5) x10^3/uL Immature Gran # (Auto) 0.04 H (0.00-0.03) x10^3u/L Absolute Lymphs (auto) 2.89 (1.0-4.6) x10^3/uL Absolute Monos (auto) 0.76 (0.0-1.3) x10^3/uL Absolute Nucleated RBC 0.00 (0.00-0.01) x10^3u/L Lymphocytes % 27.1 (24.0-44.0) % Monocytes % 7.1 (0.0-12.0) % Eosinophils % 2.0 (0.00-5.0) % Basophils % 0.8 (0.0-0.4) % Absolute Granulocytes 6.66 (1.4-6.9) x10^3/uL Basophils # 0.09 (0-0.4) x10^3/uL Sodium 140 (135-145) mmol/L Potassium 3.7 (3.5-5.1) mmol/L Chloride 103 (98-107) mmol/L Carbon Dioxide 29 (22-30) mmol/L Anion Gap 12.0 (5-15) MEQ/L BUN 19 H (7-17) mg/dL Creatinine 0.63 (0.52-1.04) mg/dL Estimated GFR 100.9 ML/MIN Glucose 123 H (74-106) mg/dL Calcium 9.1 (8.4-10.2) mg/dL Total Bilirubin 0.90 (0.2-1.3) mg/dL AST 125 H (14-36) U/L ALT 100 H (0-35) U/L Alkaline Phosphatase 120 (38-126) U/L Troponin I (0.000-0.034) ng/mL Serum Total Protein 7.3 (6.3-8.2) g/dL Albumin 4.3 (3.5-5.0) g/dL Amylase 75 (30-110) U/L Lipase 185 (23-300) U/L Urine Color (Yellow) Urine Appearance (Clear) Urine pH (4.6-8.0) Ur Specific [place] (1.005-1.030) Urine Protein (Negative) Urine Glucose (UA) (Negative) mg/dL Urine Ketones (Negative) Urine Blood (Negative) Urine Nitrite (Negative) Urine Bilirubin (Negative) Urine Urobilinogen (0.2) mg/dL Ur Leukocyte Esterase (Negative) U Hyaline Cast (Auto) (0-2) /LPF Urine Microscopic RBC (0-5) /HPF Urine Microscopic WBC (0-5) /HPF Ur Epithelial Cells (None Seen) /HPF Urine Bacteria (None Seen) /HPF Urine Culture Reflexed (NO) - Progress Progress: improved Progress Note: 08/07/23 01:53 Differential diagnosis includes kidney stone, compression fracture, infection, UTI, triple AAA - basic labs including: CBC, lipase, CMP, UA, Troponin - insert IV for symptom management - consider imaging: CT ab/pelvis or U/S Reevaluation Patient feels improved with medication. CT scan demonstrates choledocholithiasis, patient has elevation of LFTs. Normal alk phos. White blood cell count 10.9.Pain improved as above. High concern for choledocholithiasis given previous cholecystectomy, elevated LFTs, epiga stric pain. Given this we did place several calls to try to get patient transferred including [facility], [facility]. These were all full. We attempted [facility] however did not receive a call back from the physician. Therefore we did settle on [facility]. Spoke over the phone to on-call hospitalist, Dr. Esparza. He did accept the patient for transfer. Counseled pt/family regarding: lab results, diagnosis, rad results - Departure Departure Disposition: Transfer Clinical Impression: Choledocholithiasis Condition: Stable Critical Care Time: No Referrals: VASQUEZ,SHITAL, [Primary Care Provider] - Follow up/PCP as directed
[2023-08-07 01:50] LABS: Appearance Clear (Clear); Bacteria None Seen /HPF (None Seen); Bilirubin Negative (Negative); Blood Negative (Negative); Epithelial Cells None Seen /HPF (None Seen); Glucose, Urine >=1000 mg/dL (Negative); Hyaline Casts NONE SEEN /LPF (0-2); Ketones Negative (Negative); Leukocyte Esterase Trace (Negative); Nitrite Negative (Negative); Protein,Urine Dip Negative (Negative); RBC 0-2 /HPF (0-5); Specific Gravity >=1.030 (1.005-1.030); Urobilinogen 0.2 mg/dL (0.2)
[2023-08-07 01:51] LABS: ADD URINE CULTURE? YES (NO)
[2023-08-07 13:04] VITALS: O2SAT 98
[2023-08-07 13:48] VITALS: BP 125/81; PULSE 68
== END 2023-08-07 13:49 | disposition short-term general hospital (02) ==
LOC: ED 18:27
DX: K80.50 Calculus of bile duct without cholangitis or cholecystitis without obstruction (principal); R10.13 Epigastric pain; R11.2 Nausea with vomiting, unspecified; R79.89 Other specified abnormal findings of blood chemistry; Z79.899 Other long term (current) drug therapy
CPT/HCPCS: 36000; 36415; 74177; 80053; 81001; 82150; 83690; 84484; 85025; 87086; 96374; 99285; J1885; J2405; A9270-GY

== ENCOUNTER 2023-09-12 15:54 | Emergency (ER) | payer MEDICARE ==
[2023-09-12 16:20] VITALS: PULSE 96; TEMP 98.8
[2023-09-12] MEDS ORDERED: ZOFRAN ODT 4 MG ONE (16:38)
[2023-09-12] MEDS ORDERED: Sodium Chloride 0.9% 1000 ML 1,000 ML ONE (16:38)
[2023-09-12] MEDS ORDERED: MORPHINE SULFATE 4 MG INJ ONE (16:38)
[2023-09-12 16:39] LABS: Absolute Neutrophil Ct (ANC) 11.74 x10^3/uL (1.4-6.9); BASOPHIL % 0.4 % (0.0-0.4); Basophil (Absolute #) 0.06 x10^3/uL (0-0.4); Eosinophil (Absolute #) 0.15 x10^3/uL (0-0.5); Hematocrit 43.2 % (35-47); Hemoglobin 14.5 g/dL (12.0-16.0); IMMATURE GRAN # 0.07 x10^3u/L (0.00-0.03); IMMATURE GRAN % 0.5 % (0.00-0.4); Lymphocyte (Absolute #) 1.88 x10^3/uL (1.0-4.6); Lymphocytes % 12.5 % (24.0-44.0); Mean Cell Volume 85.7 fL (78-100); Mean Corpuscular Hemoglobin 28.8 pg (26-32); Mean Corpuscular Hgb Concent. 33.6 g/dL (32-36); Monocyte (Absolute #) 1.18 x10^3/uL (0.0-1.3); Monocytes % 7.8 % (0.0-12.0); Neutrophil % 77.8 % (36.0-66.0); Platelet Count 214 x10^3/uL (150-450); Red Blood Count 5.04 x10^6/uL (4.1-5.4); Red Cell Distribution Width 12.7 % (11.5-14.0); White Blood Count 15.1 x10^3/uL (4.0-10.5)
[2023-09-12] MEDS: ZOFRAN ODT 4 MG PO ONE (16:43)
[2023-09-12] MEDS: MORPHINE SULFATE 4 MG INJ IV ONE (16:44)
[2023-09-12] MEDS: Sodium Chloride 0.9% 1000 ML 1,000 ML IV SCH (16:44)
[2023-09-12 17:21] LABS: ALBUMIN 3.7 g/dL (3.5-5.0); ANION GAP 11.5 MEQ/L (5-15); BILIRUBIN,TOTAL 0.8 mg/dL (0.2-1.3); Calcium 8.8 mg/dL (8.4-10.2); Creatinine 1 0.52 mg/dL (0.52-1.04); EST GLOMERULAR FILTRATION RATE 105.6 ML/MIN; Potassium 3.1 mmol/L (3.5-5.1); Total Protein 6.7 g/dL (6.3-8.2)
[2023-09-12] MEDS ORDERED: Hydromorphone 1 mg/ml Injection ONE (17:49)
[2023-09-12] MEDS: Hydromorphone 1 mg/ml Injection IV ONE (17:50)
--- NOTE | 2023-09-12 18:17 | ERPHSYRPT ---
- History of Present Illness Time Seen by Provider: 09/12/23 16:03 Historian: patient Exam Limitations: no limitations Patient Subjective Stated Complaint: Pt c/o of getting a drain tube out of her abdomen today in [place] due to having a stone in her bilary duct, while pt was on her way home she began having severe pain, pt has tried to call the surgeon and can't get anyone to call her back Triage Nursing Assessment: Pt was brought to the ER by her friend, hypertensive, rates pain as 10/10, pulses normal, skin n/w/d, bandage covering drain hole, pain as drain hole site, under her left breast and her left shoulder, pt walked into the ER with a stable gait, appears to be in moderate pain Physician History: 62-year-old female with recent pancreatic/CBD stenting/drainage placement after she had a CBD stone despite having cholecystectomy long time ago and drain was removed today after 4 weeks at [facility] presented in the ER with complaining of moderate to severe sharp Louis umbilical/upper abdomen pain for last 4 hours with associated nausea but no vomiting. Patient reports pain radiating to her left shoulder at times. No difficulty breathing. No chest pain otherwise. Denies any diarrhea. No fever or chills reported Allergies/Adverse Reactions: coconut Allergy (Severe, Verified 09/12/23 16:21) Anaphylactic Reaction codeine [Codeine] Allergy (Mild, Verified 09/12/23 16:21) Shortness of Breath latex Allergy (Mild, Verified 09/12/23 16:21) Rash states "have a little on my waistband" Home Medications: Furosemide [Lasix] 40 mg PO DAILY 07/15/13 [History] Modafinil [Provigil] 200 mg PO DAILY 07/15/13 [History] Famotidine 20 mg [Pepcid 20 MG] 20 mg PO BID 10/25/16 [History] Amlodipine Besylate 10 mg PO DAILY 11/09/20 [History] Topiramate [Topamax] 50 mg PO DAILY 11/09/20 [History] Docusate Sodium [Colace] 100 mg PO DAILY 08/08/22 [History] Levothyroxine Sodium 100 Mcg [Synthroid 100 Mcg] 175 mcg PO DAILY 08/08/22 [History] Hx Tetanus, Diphtheria Vaccination/Date Given: Yes Hx Influenza Vaccination/Date Given: Yes Hx Pneumococcal Vaccination/Date Given: Yes Travel Risk - International Travel Have you traveled outside of the country in past 3 weeks: No - Emerging Infectious Disease Are you exhibiting symptoms associated with any current EIDs: No - Review of Systems Constitutional: No Symptoms Eyes: No Symptoms Ears, Nose, & Throat: No Symptoms Respiratory: No Symptoms Cardiac: No Symptoms Abdominal/Gastrointestinal: Abdominal Pain, Nausea Genitourinary Symptoms: No Symptoms Musculoskeletal: No Symptoms Skin: No Symptoms Neurological: No Symptoms Endocrine: No Symptoms Hematologic/Lymphatic: No Symptoms - Past Medical History Pertinent Past Medical History: Yes Neurological History: Seizures, Other ENT History: Cataracts Cardiac History: Hypertension Respiratory History: No Pertinent History Endocrine Medical History: Hypothyroidism, Other Musculoskeletal History: Osteoarthritis GI Medical History: Diverticulosis, Gallbladder Disease History: No Pertinent History Psycho-Social History: Anxiety Female Reproductive Disorders: No Pertinent History Other Medical History: SX HX: ACL/MENISCAL TEAR WITH REPAIR LEFT KNEE 2014, SINUS SURGERY FOR SLEEP APNEA, HYSTERECTOMY, LUMPECTOMY BREASTS, CATARACTS. REPORTS HX OF BACK INJURY WITH HX OF INJECTIONS X 2 IN THE PAST 2 YEARS WITH G OOD RELIEF. - Past Surgical History Past Surgical History: Yes Neuro Surgical History: No Pertinent History Cardiac: No Pertinent History Respiratory: No Pertinent History Gastrointestinal: Cholecystectomy Genitourinary: No Pertinent History Musculoskeletal: Orthopedic Surgery Female Surgical History: Hysterectomy, Lumpectomy Other Surgical History: ACL/MENISCAL TEAR WITH REPAIR LEFT KNEE 2014, SINUS SURGERY FOR SLEEP APNEA. knee injected 08/18, stent placed in bilary duct and drain tube Significant Family History: no pertinent family hx - Social History Smoking Status: Never smoker Exposure to second hand smoke: No Drug Use: none Patient Lives Alone: Yes - Nursing Vital Signs Nursing Vital Signs: Initial Vital Signs Temperature 98.8 F 09/12/23 16:03 Pulse Rate 96 H 09/12/23 16:03 Blood Pressure 156/96 09/12/23 16:03 O2 Sat by Pulse Oximetry 97 09/12/23 16:03 Pain Scale Pain Intensity [Left Upper 10 Abdomen] Pain Intensity 9 - Physical Exam General Appearance: no apparent distress, alert Eye Exam: PERRL/EOMI Ears, Nose, Throat Exam: normal ENT inspection Neck Exam: normal inspection, non-tender, supple, full range of motion Respiratory Exam: normal breath sounds, lungs clear Cardiovascular Exam: regular rate/rhythm, normal heart sounds, edema Gastrointestinal/Abdomen Exam: normal bowel sounds, tenderness (Upper abdomen), guarding (Upper abdomen) Back Exam: normal inspection, normal range of motion Extremity Exam: normal inspection, normal range of motion Neurologic Exam: alert, oriented x 3 Skin Exam: normal color SpO2 Interpretation: normal SpO2: 96 O2 Delivery: Room Air - Course EKG Interpreted by Me: RATE (95), Sinus Rhythm, Left [place] Deviation, NORMAL INTERVALS, Q-wave, Non-specific ST Changes Ordered Tests: Active Orders 24 hr Category Date Time Status IV Insertion STAT Care 09/12/23 16:22 Completed NPO (ED) STAT Care 09/12/23 16:22 Completed ABDOMEN AND PELVIS W CONTRAST [CT] Stat Exams 09/12/23 16:23 Completed AMYLASE Stat Lab 09/12/23 16:35 Completed CBC W DIFF Stat Lab 09/12/23 16:35 Completed CMP Stat Lab 09/12/23 16:35 Completed LIPASE Stat Lab 09/12/23 16:35 Completed Lactic Acid Stat Lab 09/12/23 16:22 Completed TROPONIN Q4H Lab 09/12/23 16:35 Completed UA W/RFX UR CULTURE Stat Lab 09/12/23 18:48 Completed Medication Summary Discontinued Medications Generic Name Dose Route Start Last Admin Trade Name Freq PRN Reason Stop Dose Admin Hydromorphone HCl 1 mg 09/12/23 17:42 09/12/23 17:50 Hydromorphone 1 Mg/1ml Inj IV 09/12/23 17:43 1 mg STAT ONE Administration Hydromorphone HCl Confirm 09/12/23 17:49 Hydromorphone 1 Mg/1ml Inj Administered 09/12/23 17:50 Dose 1 mg .ROUTE .STK-MED ONE Sodium Chloride 1,000 mls @ 125 mls/hr 09/12/23 16:30 09/12/23 16:44 Sodium Chloride 0.9% 1000 Ml IV 10/12/23 16:29 125 mls/hr .Q8H SAV Administration Sodium Chloride Confirm 09/12/23 16:38 Sodium Chloride 0.9% 1000 Ml Administered 09/12/23 16:39 Dose 1,000 mls @ ud .ROUTE .STK-MED ONE Morphine Sulfate 4 mg 09/12/23 16:22 09/12/23 16:44 Morphine Sulfate 4 Mg/Ml Injection IV 09/12/23 16:23 Not Given STAT ONE Morphine Sulfate Confirm 09/12/23 16:38 Morphine Sulfate 4 Mg/Ml Injection Administered 09/12/23 16:39 Dose 4 mg .ROUTE .STK-MED ONE Ondansetron HCl 4 mg 09/12/23 16:22 09/12/23 16:43 Zofran 4 Mg/Udtablet Orally Disintegrating PO 09/12/23 16:23 4 mg STAT ONE Administration Ondansetron HCl Confirm 09/12/23 16:38 Zofran 4 Mg/Udtablet Orally Disintegrating Administered 09/12/23 16:39 Dose 4 mg .ROUTE .STK-MED ONE Lab/Rad Data: Laboratory Result Diagrams 09/12/23 16:35 09/12/23 16:35 Laboratory Results 09/12/23 09/12/23 09/12/23 Range/Units 18:48 16:35 16:35 WBC (4.0-10.5) x10^3/uL RBC (4.1-5.4) x10^6/uL Hgb (12.0-16.0) g/dL Hct (35-47) % MCV (78-100) fL MCH (26-32) pg MCHC (32-36) g/dL RDW (11.5-14.0) % Plt Count (150-450) x10^3/uL MPV (7.5-11.0) fL Gran % (36.0-66.0) % Immature Gran % (Auto) (0.00-0.4) % Nucleat RBC Rel Count (0.00-0.1) % Eos # (Auto) (0-0.5) x10^3/uL Immature Gran # (Auto) (0.00-0.03) x10^3u/L Absolute Lymphs (auto) (1.0-4.6) x10^3/uL Absolute Monos (auto) (0.0-1.3) x10^3/uL Absolute Nucleated RBC (0.00-0.01) x10^3u/L Lymphocytes % (24.0-44.0) % Monocytes % (0.0-12.0) % Eosinophils % (0.00-5.0) % Basophils % (0.0-0.4) % Absolute Granulocytes (1.4-6.9) x10^3/uL Basophils # (0-0.4) x10^3/uL Sodium 138 (135-145) mmol/L Potassium 3.1 L (3.5-5.1) mmol/L Chloride 104 (98-107) mmol/L Carbon Dioxide 26 (22-30) mmol/L Anion Gap 11.5 (5-15) MEQ/L BUN 9 (7-17) mg/dL Creatinine 0.52 (0.52-1.04) mg/dL Estimated GFR 105.6 ML/MIN Glucose 124 H (74-106) mg/dL Lactic Acid (0.4-2.0) Calcium 8.8 (8.4-10.2) mg/dL Total Bilirubin 0.80 (0.2-1.3) mg/dL AST 29 (14-36) U/L ALT 29 (0-35) U/L Alkaline Phosphatase 96 (38-126) U/L Troponin I < 0.012 (0.000-0.033) ng/mL Serum Total Protein 6.7 (6.3-8.2) g/dL Albumin 3.7 (3.5-5.0) g/dL Amylase 37 (30-110) U/L Lipase 58 (23-300) U/L Urine Color Yellow (Yellow) Urine Appearance Clear (Clear) Urine pH 7.0 (4.6-8.0) Ur Specific [place] >=1.030 A (1.005-1.030) Urine Protein Negative (Negative) Urine Glucose (UA) >=1000 A (Negative) mg/dL Urine Ketones Negative (Negative) Urine Blood Negative (Negative) Urine Nitrite Negative (Negative) Urine Bilirubin Negative (Negative) Urine Urobilinogen 0.2 (0.2) mg/dL Ur Leukocyte Esterase Negative (Negative) U Hyaline Cast (Auto) NONE SEEN (0-2) /LPF Urine Microscopic RBC 0-2 (0-5) /HPF Urine Microscopic WBC 0-2 (0-5) /HPF Ur Epithelial Cells None Seen (None Seen) /HPF Urine Bacteria None Seen (None Seen) /HPF Urine Culture Reflexed NO (NO) 09/12/23 09/12/23 Range/Units 16:35 16:22 WBC 15.1 H (4.0-10.5) x10^3/uL RBC 5.04 (4.1-5.4) x10^6/uL Hgb 14.5 (12.0-16.0) g/dL Hct 43.2 (35-47) % MCV 85.7 (78-100) fL MCH 28.8 (26-32) pg MCHC 33.6 (32-36) g/dL RDW 12.7 (11.5-14.0) % Plt Count 214 (150-450) x10^3/uL MPV 10.0 (7.5-11.0) fL Gran % 77.8 H (36.0-66.0) % Immature Gran % (Auto) 0.5 H (0.00-0.4) % Nucleat RBC Rel Count 0.0 (0.00-0.1) % Eos # (Auto) 0.15 (0-0.5) x10^3/uL Immature Gran # (Auto) 0.07 H (0.00-0.03) x10^3u/L Absolute Lymphs (auto) 1.88 (1.0-4.6) x10^3/uL Absolute Monos (auto) 1.18 (0.0-1.3) x10^3/uL Absolute Nucleated RBC 0.00 (0.00-0.01) x10^3u/L Lymphocytes % 12.5 L (24.0-44.0) % Monocytes % 7.8 (0.0-12.0) % Eosinophils % 1.0 (0.00-5.0) % Basophils % 0.4 (0.0-0.4) % Absolute Granulocytes 11.74 H (1.4-6.9) x10^3/uL Basophils # 0.06 (0-0.4) x10^3/uL Sodium (135-145) mmol/L Potassium (3.5-5.1) mmol/L Chloride (98-107) mmol/L Carbon Dioxide (22-30) mmol/L Anion Gap (5-15) MEQ/L BUN (7-17) mg/dL Creatinine (0.52-1.04) mg/dL Estimated GFR ML/MIN Glucose (74-106) mg/dL Lactic Acid 2.1 H (0.4-2.0) Calcium (8.4-10.2) mg/dL Total Bilirubin (0.2-1.3) mg/dL AST (14-36) U/L ALT (0-35) U/L Alkaline Phosphatase (38-126) U/L Troponin I (0.000-0.033) ng/mL Serum Total Protein (6.3-8.2) g/dL Albumin (3.5-5.0) g/dL Amylase (30-110) U/L Lipase (23-300) U/L Urine Color (Yellow) Urine Appearance (Clear) Urine pH (4.6-8.0) Ur Specific [place] (1.005-1.030) Urine Protein (Negative) Urine Glucose (UA) (Negative) mg/dL Urine Ketones (Negative) Urine Blood (Negative) Urine Nitrite (Negative) Urine Bilirubin (Negative) Urine Urobilinogen (0.2) mg/dL Ur Leukocyte Esterase (Negative) U Hyaline Cast (Auto) (0-2) /LPF Urine Microscopic RBC (0-5) /HPF Urine Microscopic WBC (0-5) /HPF Ur Epithelial Cells (None Seen) /HPF Urine Bacteria (None Seen) /HPF Urine Culture Reflexed (NO) - Progress Progress: improved, re-examined Progress Note: 09/12/23 18:54 she is given symptomatic treatment for pain along with fluids and baseline workup is obtained with a white count of 15, fairly unremarkable chemistries except for potassium of 3.1. CT abdomen pelvis showed new CBD stenting with some diffuse fecal load but no other acute findings. We will call her primary at [place] Dr. Covington to discuss current condition, Patient is feeling better after Dilaudid. 09/12/23 19:[address] MARIA at [facility], reviewed history, workup and CT findings, patient has been keeping the drain capped for 4 weeks and he recommended patient can be discharged with outpatient follow-up. She is advised to take MiraLAX and stool softener for her constipation. Discussed signs symptoms of worsening needing return to ER which she seems understanding. Counseled pt/family regarding: lab results, diagnosis, need for follow-up, rad results Medical Desision Making - Discussion of managment Care discussed with:: specialist (Dr. COVINGTON [facility]) Reviewed:: Test results Agreed on:: need for follow-up Will see patient: In office - Diagnostic Testing Diagnostic test were ordered, analyzed, and reviewed by me: Yes Radiological Interpretation: Reviewed by me - Departure Departure Disposition: Home Clinical Impression: Upper abdominal pain, Constipation Condition: Stable Critical Care Time: No Referrals: SHITAL VASQUEZ DO [Primary Care Provider] - Follow up with PCP 1 day Instructions: Constipation, Adult (DC), Severe Abdominal Pain, Adult (DC) Additional Instructions: Take pain medications as needed. Follow-up with your primary care and specialist at [place] Dr. Covington for reevaluation as recommended. Return to ER for intractable abdominal pain nausea vomiting or if develop fever chills. Take daily stool softener and MiraLAX.
[2023-09-12 18:57] LABS: Appearance Clear (Clear); Bacteria None Seen /HPF (None Seen); Bilirubin Negative (Negative); Blood Negative (Negative); Epithelial Cells None Seen /HPF (None Seen); Glucose, Urine >=1000 mg/dL (Negative); Hyaline Casts NONE SEEN /LPF (0-2); Ketones Negative (Negative); Leukocyte Esterase Negative (Negative); Nitrite Negative (Negative); Protein,Urine Dip Negative (Negative); RBC 0-2 /HPF (0-5); Specific Gravity >=1.030 (1.005-1.030); Urobilinogen 0.2 mg/dL (0.2); WBC 0-2 /HPF (0-5)
[2023-09-12 19:03] VITALS: BP 127/82
[2023-09-12 19:09] VITALS: O2SAT 96
[2023-09-12 19:15] LABS: ADD URINE CULTURE? NO (NO)
--- NOTE | 2023-09-13 08:37 | XRAY ---
Indication: Abdominal pain. Pancreatic/common bile duct stent. Multiple contiguous axial images obtained through the abdomen and pelvis using 80 cc Isovue 370 contrast. Comparison: August 06, 2023 Lung bases demonstrates minimal dependent atelectasis without infiltrate or effusion. Heart not enlarged. Again small hiatal hernia. Noncontrasted stomach and bowel loops appear nonobstructed. Again mild diffuse scattered colonic fecal debris and mild sigmoid diverticulosis. Again cholecystectomy and hysterectomy. Epigastric abdominal wall and left lobe liver demonstrates new percutaneous track left of midline. Also new common bile duct stent and pneumobilia. Tiny anterior perihepatic fluid but no walled off fluid collection or free air. Remaining liver, pancreas, spleen, adrenal glands, kidneys, ureters, and bladder are unremarkable. Again minimal aortoiliac calcifications are no AAA or pathologic retroperitoneal lymphadenopathy. Osseous structures intact again with mild/moderate multilevel thoracolumbar degenerative spondylosis, minimal grade 1 L4 listhesis, and mild dextroscoliosis. Impression: 1. Status post biliary stent placement. Query percutaneous approach with tiny perihepatic fluid. 2. Again mild diffuse fecal stasis, sigmoid diverticulosis, arteriosclerotic disease, and chronic bony findings.
== END 2023-09-12 19:28 | disposition home or self-care (01) ==
LOC: ED 15:54
DX: R10.10 Upper abdominal pain, unspecified (principal); K59.00 Constipation, unspecified; I10 Essential (primary) hypertension; Z79.899 Other long term (current) drug therapy
CPT/HCPCS: 36000; 36415; 74177; 80053; 81001; 82150; 83605; 83690; 84484; 85025; 96374; 96375; 99284; J1170; J2270; Q0162

== ENCOUNTER 2023-09-14 10:55 | Emergency (ER) | payer MEDICARE ==
[2023-09-14 11:17] VITALS: TEMP 98
[2023-09-14 11:36] LABS: Absolute Neutrophil Ct (ANC) 11.02 x10^3/uL (1.4-6.9); BASOPHIL % 0.3 % (0.0-0.4); Basophil (Absolute #) 0.05 x10^3/uL (0-0.4); Eosinophil % 0.6 % (0.00-5.0); Eosinophil (Absolute #) 0.09 x10^3/uL (0-0.5); Hemoglobin 13.2 g/dL (12.0-16.0); IMMATURE GRAN # 0.07 x10^3u/L (0.00-0.03); IMMATURE GRAN % 0.5 % (0.00-0.4); Lymphocytes % 16.6 % (24.0-44.0); Mean Cell Volume 84.1 fL (78-100); Mean Corpuscular Hemoglobin 28.4 pg (26-32); Mean Corpuscular Hgb Concent. 33.8 g/dL (32-36); Mean Platelet Volume 10.4 fL (7.5-11.0); Monocytes % 8.6 % (0.0-12.0); Neutrophil % 73.4 % (36.0-66.0); Platelet Count 230 x10^3/uL (150-450); Red Blood Count 4.64 x10^6/uL (4.1-5.4); Red Cell Distribution Width 12.5 % (11.5-14.0)
[2023-09-14] MEDS ORDERED: Sodium Chloride 0.9% 1000 ML 1,000 ML ONE (11:37)
[2023-09-14] MEDS ORDERED: Hydromorphone 1 mg/ml Injection ONE (11:37)
[2023-09-14] MEDS ORDERED: PROTONIX 40 MG IV IV ONE (11:37)
[2023-09-14] MEDS ORDERED: Zofran 4 MG/2 ML VIAL ONE (11:37)
[2023-09-14] MEDS: Zofran 4 MG/2 ML VIAL IV ONE (11:39)
[2023-09-14] MEDS: PROTONIX 40 MG IV IV ONE (11:39)
[2023-09-14] MEDS: Sodium Chloride 0.9% 1000 ML 1,000 ML IV STA (11:39)
[2023-09-14] MEDS: Hydromorphone 1 mg/ml Injection IV ONE (11:40)
--- NOTE | 2023-09-14 11:46 | ERPHSYRPT ---
- History of Present Illness Time Seen by Provider: 09/14/23 11:20 Historian: patient, old records Exam Limitations: no limitations Patient Subjective Stated Complaint: C/O vomiting that started last night. States she called [facility] to report symptoms due to recent surgery with Dr. Covington and was advised to go to the ER. Triage Nursing Assessment: Patient ambulated back to ER without difficulties. She is alert and oriented. Bandaid noted to left upper quad; patient states from tube removal on Sunday. NO SOB. No cough. Skin tone normal. Patient is displaying s/s of pain; holding left side of abdomen and grimacing. Physician History: This is a morbidly obese white female patient of Dr. Vasquez who had a bilia ry/pancreatic stent placed [address] Covington in [facility]. Per her report and understanding she had a biliary ductal stone present. When reviewing old records and her last visit here in the emergency department on 09/12/2023, she had the biliary stent in place on that date. However, it appears that later on 09/12/2023, she had the biliary stent removed. Post stent removal there was a dye study performed and showed the tract patent without leak. Today, patient has worse pain and associated vomiting symptoms. Her pain is in the left upper quadrant. She notified the office of Dr. Covington and they told her to come to the emergency department for further evaluation m anagement. Patient has a history of seizure disorder, hypertension, hypothyroidism, osteoarthritis, diverticulosis and anxiety Timing/Duration: today, worse Abdominal Pain Onset Location: LUQ Pain Radiation: LUQ Severity of Pain-Max: moderate Severity of Pain-Current: moderate Modifying Factors: Improves With: vomiting Associated Symptoms: loss of appetite, nausea, vomiting, weakness, No chest pain, No diaphoresis, No fever/chills, No shortness of breath Previous symptoms: same symptoms as today, recently seen, recently treated Allergies/Adverse Reactions: coconut Allergy (Severe, Verified 09/14/23 11:03) Anaphylactic Reaction codeine [Codeine] Allergy (Mild, Verified 09/14/23 11:03) Shortness of Breath latex Allergy (Mild, Verified 09/14/23 11:03) Rash states "have a little on my waistband" Home Medications: Furosemide [Lasix] 40 mg PO DAILY 07/15/13 [History] Modafinil [Provigil] 200 mg PO DAILY 07/15/13 [History] Famotidine 20 mg [Pepcid 20 MG] 20 mg PO BID 10/25/16 [History] Amlodipine Besylate 10 mg PO DAILY 11/09/20 [History] Topiramate [Topamax] 50 mg PO DAILY 11/09/20 [History] Docusate Sodium [Colace] 100 mg PO DAILY 08/08/22 [History] Levothyroxine Sodium 100 Mcg [Synthroid 100 Mcg] 175 mcg PO DAILY 08/08/22 [History] Hx Tetanus, Diphtheria Vaccination/Date Given: Yes Hx Influenza Vaccination/Date Given: Yes Hx Pneumococcal Vaccination/Date Given: Yes Immunizations Up to Date: Yes Travel Risk - International Travel Have you traveled outside of the country in past 3 weeks: No - Emerging Infectious Disease Are you exhibiting symptoms associated with any current EIDs: No - Review of Systems Constitutional: No Symptoms Eyes: No Symptoms Ears, Nose, & Throat: No Symptoms Respiratory: No Symptoms Cardiac: No Symptoms Abdominal/Gastrointestinal: Abdominal Pain, Nausea, Vomiting, Appetite Changes Genitourinary Symptoms: No Symptoms Musculoskeletal: No Symptoms Skin: No Symptoms Neurological: No Symptoms Psychological: No Symptoms Endocrine: No Symptoms Hematologic/Lymphatic: No Symptoms Immunological/Allergic: No Symptoms All Other Systems: Reviewed and Negative - Past Medical History Pertinent Past Medical History: Yes Neurological History: Seizures, Other ENT History: Cataracts Cardiac History: Hypertension Respiratory History: No Pertinent History Endocrine Medical History: Hypothyroidism, Other Musculoskeletal History: Osteoarthritis GI Medical History: Diverticulosis, Gallbladder Disease History: No Pertinent History Psycho-Social History: Anxiety Female Reproductive Disorders: No Pertinent History Other Medical History: SX HX: ACL/MENISCAL TEAR WITH REPAIR LEFT KNEE 2014, SINUS SURGERY FOR SLEEP APNEA, HYSTERECTOMY, LUMPECTOMY BREASTS, CATARACTS. REPORTS HX OF BACK INJURY WITH HX OF INJECTIONS X 2 IN THE PAST 2 YEARS WITH GOOD RELIEF. - Past Surgical History Past Surgical History: Yes Neuro Surgical History: No Pertinent History Cardiac: No Pertinent History Respiratory: No Pertinent History Gastrointestinal: Cholecystectomy Genitourinary: No Pertinent History Musculoskeletal: Orthopedic Surgery Female Surgical History: Hysterectomy, Lumpectomy Other Surgical History: ACL/MENISCAL TEAR WITH REPAIR LEFT KNEE 2014, SINUS SURGERY FOR SLEEP APNEA. knee injected 08/18, stent placed in bilary duct and drain tube due to gallstone in liver on 08/07/23. Patient had the drain tube removed on 09/12/23. Significant Family History: no pertinent family hx - Social History Smoking Status: Never smoker Exposure to second hand smoke: No Drug Use: none Patient Lives Alone: Yes - Nursing Vital Signs Nursing Vital Signs: Initial Vital Signs Pulse Rate 82 09/14/23 11:05 Respiratory Rate 13 09/14/23 11:05 Blood Pressure 118/66 09/14/23 11:05 O2 Sat by Pulse Oximetry 94 L 09/14/23 11:05 Pain Scale Pain Intensity 4 - Physical Exam General Appearance: mild distress, alert, anxiety, obese Eye Exam: PERRL/EOMI, eyes nml inspection Ears, Nose, Throat Exam: normal ENT inspection, moist mucous membranes Neck Exam: normal inspection, non-tender, supple, full range of motion Respiratory Exam: normal breath sounds, lungs clear, airway intact, No chest tenderness, No respiratory distress Cardiovascular Exam: regular rate/rhythm, normal heart sounds, normal peripheral pulses Gastrointestinal/Abdomen Exam: soft, normal bowel sounds, tenderness (Left upper quadrant left of umbilicus), guarding, No rebound Pelvic Exam: not done Rectal Exam: not done Back Exam: normal inspection, normal range of motion, No CVA tenderness, No vertebral tenderness Extremity Exam: normal inspection, normal range of motion, pelvis stable Neurologic Exam: alert, oriented x 3, cooperative, cutter out II-XII nml as tested, normal mood/affect, nml cerebellar function, nml station & gait, sensation nml Skin Exam: normal color, warm, dry Lymphatic Exam: No adenopathy SpO2 Interpretation: normal SpO2: 96 O2 Delivery: Room Air - Course Nursing assessment & vital signs reviewed: Yes Ordered Tests: Active Orders 24 hr Category Date Time Status EKG-ER Only STAT Care 09/14/23 11:18 Active IV Insertion STAT Care 09/14/23 11:18 Active ABDOMEN AND PELVIS W/0 CONTRAS [CT] Stat Exams 09/14/23 11:18 Completed AMYLASE Stat Lab 09/14/23 11:35 Completed CBC W DIFF Stat Lab 09/14/23 11:35 Completed CMP Stat Lab 09/14/23 11:35 Completed LIPASE Stat Lab 09/14/23 11:35 Completed Lactic Acid Stat Lab 09/14/23 11:28 Completed MAGNESIUM Stat Lab 09/14/23 11:35 Completed UA W/RFX UR CULTURE Stat Lab 09/14/23 12:59 Received Medication Summary Generic Name Dose Route Start Last Admin Trade Name Shahnaz PRN Reason Stop Dose Admin Lactated Ringer's 1,000 mls @ 999 mls/hr 09/14/23 12:38 09/14/23 12:48 Lactated Ringers IV 09/14/23 13:38 999 mls/hr .Q1H1M ONE Administration Discontinued Medications Generic Name Dose Route Start Last Admin Trade Name Shahnaz PRN Reason Stop Dose Admin Hydromorphone HCl 1 mg 09/14/23 11:18 09/14/23 11:40 Hydromorphone 1 Mg/1ml Inj IV 09/14/23 11:19 1 mg STAT ONE Administration Hydromorphone HCl Confirm 09/14/23 11:37 Hydromorphone 1 Mg/1ml Inj Administered 09/14/23 11:38 Dose 1 mg .ROUTE .STK-MED ONE Sodium Chloride 1,000 mls @ 999 mls/hr 09/14/23 11:18 09/14/23 12:50 Sodium Chloride 0.9% 1000 Ml IV 09/14/23 12:18 Infused .Q1H1M STA Infusion Sodium Chloride Confirm 09/14/23 11:37 Sodium Chloride 0.9% 1000 Ml Administered 09/14/23 11:38 Dose 1,000 mls @ ud .ROUTE .STK-MED ONE Lactated Ringer's Confirm 09/14/23 12:47 Lactated Ringers Administered 09/14/23 12:48 Dose 1,000 mls @ ud IV .STK-MED ONE Ondansetron HCl 4 mg 09/14/23 11:18 09/14/23 11:39 Ondansetron Hcl 4 Mg/2 Ml Vial IV 09/14/23 11:19 4 mg STAT ONE Administration Ondansetron HCl Confirm 09/14/23 11:37 Ondansetron Hcl 4 Mg/2 Ml Vial Administered 09/14/23 11:38 Dose 4 mg .ROUTE .STK-MED ONE Pantoprazole Sodium 40 mg 09/14/23 11:18 09/14/23 11:39 Pantoprazole 40 Mg Vial IV 09/14/23 11:19 40 mg STAT ONE Administration Pantoprazole Sodium Confirm 09/14/23 11:37 Pantoprazole 40 Mg Vial Administered 09/14/23 11:38 Dose 40 mg IV .STK-MED ONE Potassium Chloride 20 meq 09/14/23 12:39 09/14/23 12:48 Potassium Chloride Tab 10 Meq Tab PO 09/14/23 12:40 20 meq STAT ONE Administration Potassium Chloride Confirm 09/14/23 12:47 Potassium Chloride Tab 10 Meq Tab Administered 09/14/23 12:48 Dose 20 meq .ROUTE .STK-MED ONE Lab/Rad Data: Laboratory Result Diagrams 09/14/23 11:35 09/14/23 11:35 Laboratory Results 09/14/23 09/14/23 09/14/23 Range/Units 11:35 11:35 11:35 WBC 15.0 H (4.0-10.5) x10^3/uL RBC 4.64 (4.1-5.4) x10^6/uL Hgb 13.2 (12.0-16.0) g/dL Hct 39.0 (35-47) % MCV 84.1 (78-100) fL MCH 28.4 (26-32) pg MCHC 33.8 (32-36) g/dL RDW 12.5 (11.5-14.0) % Plt Count 230 (150-450) x10^3/uL MPV 10.4 (7.5-11.0) fL Gran % 73.4 H (36.0-66.0) % Immature Gran % (Auto) 0.5 H (0.00-0.4) % Nucleat RBC Rel Count 0.0 (0.00-0.1) % Eos # (Auto) 0.09 (0-0.5) x10^3/uL Immature Gran # (Auto) 0.07 H (0.00-0.03) x10^3u/L Absolute Lymphs (auto) 2.50 (1.0-4.6) x10^3/uL Absolute Monos (auto) 1.30 (0.0-1.3) x10^3/uL Absolute Nucleated RBC 0.00 (0.00-0.01) x10^3u/L Lymphocytes % 16.6 L (24.0-44.0) % Monocytes % 8.6 (0.0-12.0) % Eosinophils % 0.6 (0.00-5.0) % Basophils % 0.3 (0.0-0.4) % Absolute Granulocytes 11.02 H (1.4-6.9) x10^3/uL Basophils # 0.05 (0-0.4) x10^3/uL Sodium 137 (135-145) mmol/L Potassium 3.2 L (3.5-5.1) mmol/L Chloride 104 (98-107) mmol/L Carbon Dioxide 29 (22-30) mmol/L Anion Gap 6.8 (5-15) MEQ/L BUN 12 (7-17) mg/dL Creatinine 0.62 (0.52-1.04) mg/dL Estimated GFR 101.3 ML/MIN Glucose 122 H (74-106) mg/dL Lactic Acid (0.4-2.0) Calcium 8.2 L (8.4-10.2) mg/dL Magnesium 2.2 (1.6-2.3) mg/dL Total Bilirubin 1.00 (0.2-1.3) mg/dL AST 27 (14-36) U/L ALT 20 (0-35) U/L Alkaline Phosphatase 73 (38-126) U/L Serum Total Protein 6.9 (6.3-8.2) g/dL Albumin 3.5 (3.5-5.0) g/dL Amylase 47 (30-110) U/L Lipase 95 (23-300) U/L // Range/Units 11:28 WBC (4.0-10.5) x10^3/uL RBC (4.1-5.4) x10^6/uL Hgb (12.0-16.0) g/dL Hct (35-47) % MCV (78-100) fL MCH (26-32) pg MCHC (32-36) g/dL RDW (11.5-14.0) % Plt Count (150-450) x10^3/uL MPV (7.5-11.0) fL Gran % (36.0-66.0) % Immature Gran % (Auto) (0.00-0.4) % Nucleat RBC Rel Count (0.00-0.1) % Eos # (Auto) (0-0.5) x10^3/uL Immature Gran # (Auto) (0.00-0.03) x10^3u/L Absolute Lymphs (auto) (1.0-4.6) x10^3/uL Absolute Monos (auto) (0.0-1.3) x10^3/uL Absolute Nucleated RBC (0.00-0.01) x10^3u/L Lymphocytes % (24.0-44.0) % Monocytes % (0.0-12.0) % Eosinophils % (0.00-5.0) % Basophils % (0.0-0.4) % Absolute Granulocytes (1.4-6.9) x10^3/uL Basophils # (0-0.4) x10^3/uL Sodium (135-145) mmol/L Potassium (3.5-5.1) mmol/L Chloride (98-107) mmol/L Carbon Dioxide (22-30) mmol/L Anion Gap (5-15) MEQ/L BUN (7-17) mg/dL Creatinine (0.52-1.04) mg/dL Estimated GFR ML/MIN Glucose (74-106) mg/dL Lactic Acid 1.2 (0.4-2.0) Calcium (8.4-10.2) mg/dL Magnesium (1.6-2.3) mg/dL Total Bilirubin (0.2-1.3) mg/dL AST (14-36) U/L ALT (0-35) U/L Alkaline Phosphatase (38-126) U/L Serum Total Protein (6.3-8.2) g/dL Albumin (3.5-5.0) g/dL Amylase (30-110) U/L Lipase (23-300) U/L - Progress Progress: improved, pain not gone completely, re-examined Progress Note: 09/14/23 11:49 Medical decision making and assignment of moderate to high complexity to this patient's medical issue is based on review of the patient's past medical history, review the patient's recent emergency room visit medical records, review of the patient's medication list, reviewed patient's drug allergy list, history present illness and physical findings on examination. The workup in this patient includes placement of intravenous line, infusion of normal saline solution, infusion of Dilaudid medication which the patient states she can take, infusion of Zofran, infusion of Protonix, CBC, CMP, amylase, lipase, lactic acid level, urinalysis and CT scan of the abdomen pelvis without contrast. Differential diagnosis includes intra-abdominal fluid collection, pancreatitis, free air under the diaphragm, bowel obstruction, postprocedural pain and vomiting 09/14/23 12:49 CT scan of the abdomen and pelvis without contrast was interpreted by the radiologist and compared to similar study dated 09/12/2023. I reviewed the impression. The impression states status post percutaneous biliary stent placement. Stable tiny anterior perihepatic fluid with air bubble. Presumed postsurgical. New mild colonic diarrhea. Chronic diverticulosis present. 09/14/23 13:26 I interpreted the patient's laboratory data results. Of significance, the patient does have a leukocytosis. This could be related to multiple episodes of vomiting she experienced prior to arrival. Her potassium was low at 3.2. I did provide her with a liter of lactated Ringer's as well as an oral dose of 20 mEq of potassium chloride. In addition, she does have evidence of colonic diarrhea on CT scan. There is also a stable tiny anterior perihepatic fluid with an air bubble present. We will place her on a regimen of Cipro and Flagyl orally. Also send remotely a prescription for Zofran to the patient's pharmacy. 09/14/23 13:28 Counseled pt/family regarding: lab results, diagnosis, need for follow-up, rad results Medical Desision Making - Diagnostic Testing Diagnostic test were ordered, analyzed, and reviewed by me: Yes Radiological Interpretation: Reviewed by me, Teleradiologist Report - Risk of complications The pt has a mod risk of morbidity or mortality based on: Need for prescription drug management - Departure Departure Disposition: Home Clinical Impression: Abdominal pain, Vomiting, Diarrhea, Hypokalemia Condition: Stable Critical Care Time: No Referrals: SHITAL VASQUEZ DO [Primary Care Provider] - Follow up/PCP as directed Additional Instructions: Drink plenty of clear liquids including Gatorade or propel to replenish your electrolytes. Take your medications as prescribed. Call your primary prescribing provider and your surgeon today, 09/14/2023, to make arrangements for a follow-up appointment and further evaluation in the next 3 to 5 days. Prescriptions: Ondansetron ODT 4 MG [Zofran Odt 4 mg] 4 mg PO Q6H PRN PRN #10 tablet PRN Reason: Vomiting Ciprofloxacin [Cipro 500 MG] 500 mg PO BID #14 tablet Metronidazole 500 mg [Flagyl 500 MG] 500 mg PO TID #21 tablet Potassium Chloride Tab* [Klor Con] 10 meq PO DAILY #4 tab
[2023-09-14 11:53] LABS: ALBUMIN 3.5 g/dL (3.5-5.0); ANION GAP 6.8 MEQ/L (5-15); Calcium 8.2 mg/dL (8.4-10.2); Creatinine 1 0.62 mg/dL (0.52-1.04); EST GLOMERULAR FILTRATION RATE 101.3 ML/MIN; Total Protein 6.9 g/dL (6.3-8.2)
[2023-09-14 11:55] LABS: Potassium 3.2 mmol/L (3.5-5.1)
--- NOTE | 2023-09-14 12:29 | XRAY ---
Indication: Left upper quadrant pain, nausea, and vomiting. Multiple contiguous axial images obtained through the abdomen and pelvis without contrast. Comparison: September 12, 2023 Lung bases again demonstrates minimal subsegmental atelectasis/scarring. No infiltrate or effusion. Heart not enlarged. Noncontrasted stomach and bowel loops remain nonobstructed. New mild colonic diarrhea. Stable mild sigmoid diverticulosis without diverticulitis. Stable percutaneous biliary stent placement with stent in common bile duct and interval increasing pneumobilia. Stable tiny anterior perihepatic fluid with air bubble presumed postsurgical. Remaining liver, pancreas, spleen, adrenal glands, kidneys, ureters, and bladder are unremarkable for noncontrast exam. Stable minimal aortoiliac calcifications without AAA. Impression: 1. Again status post percutaneous biliary stent placement. Stable tiny anterior perihepatic fluid with air bubble presumed postsurgical. 2. New mild colonic diarrhea. 3. Chronic findings including sigmoid diverticulosis and arteriosclerotic disease.
[2023-09-14] MEDS ORDERED: Lactated Ringers 1,000 ML IV ONE (12:47)
[2023-09-14] MEDS ORDERED: Klor Con ONE (12:47)
[2023-09-14] MEDS: Klor Con PO ONE (12:48)
[2023-09-14] MEDS: Lactated Ringers 1,000 ML IV ONE (12:48)
[2023-09-14 13:26] LABS: Appearance Clear (Clear); Bacteria None Seen /HPF (None Seen); Bilirubin Negative (Negative); Blood Negative (Negative); Epithelial Cells None Seen /HPF (None Seen); Glucose, Urine >=1000 mg/dL (Negative); Hyaline Casts NONE SEEN /LPF (0-2); Ketones Negative (Negative); Leukocyte Esterase Negative (Negative); Nitrite Negative (Negative); Ph 6.5 (4.6-8.0); Protein,Urine Dip Negative (Negative); RBC 0-2 /HPF (0-5); Urobilinogen 0.2 mg/dL (0.2); WBC 0-2 /HPF (0-5)
[2023-09-14 13:27] LABS: ADD URINE CULTURE? NO (NO)
[2023-09-14 14:22] VITALS: BP 123/80; PULSE 92; RESP 17; O2SAT 94
== END 2023-09-14 14:35 | disposition home or self-care (01) ==
LOC: ED 10:55
DX: R11.10 Vomiting, unspecified (principal); R10.12 Left upper quadrant pain; D72.829 Elevated white blood cell count, unspecified; E87.6 Hypokalemia; I10 Essential (primary) hypertension; F41.9 Anxiety disorder, unspecified; R19.7 Diarrhea, unspecified
CPT/HCPCS: 36000; 36415; 74176; 80053; 81001; 82150; 83605; 83690; 83735; 85025; 93005; 96374; 96375; 99284; J1170; J2405; A9270-GY

== ENCOUNTER 2023-11-28 14:27 | Day surgery (SDC) | payer MEDICARE, OTHER ==
[2023-11-28] MEDS ORDERED: DIPRIVAN 200 MG/20 ML IV ONE (16:21)
--- NOTE | 2023-11-28 17:14 | XRAY ---
Indication: Left knee injection. Intraoperative fluoroscopy provided for 4 seconds. Single digital spot images submitted for interpretation demonstrates needle tip projecting over left femur intercondylar notch. Small amount of contrast injected for needle tip placement. Correlate with intraoperative findings/report.
--- NOTE | 2023-11-28 17:14 | XRAY ---
Indication: Right knee injection. Intraoperative fluoroscopy provided for 6 seconds. Single digital spot images submitted for interpretation demonstrates needle tip projecting over right femur intercondylar notch. Small amount of contrast injected for needle tip placement. Correlate with intraoperative findings/report.
[2023-11-28] MEDS ORDERED: Lactated Ringers 1,000 ML IV ONE (17:25)
--- NOTE | 2023-11-30 07:57 | XRAY ---
6 seconds of fluoroscopy was used in surgery for a right intra-articular knee injection.
--- NOTE | 2023-11-30 07:57 | XRAY ---
4 seconds of fluoroscopy was used in surgery for a left intra-articular knee injection.
== END 2023-11-28 16:48 | disposition home or self-care (01) ==
LOC: SDC-PAIN 14:27
PROVIDERS: ATTEND Psychiatry & Neurology Pain Medicine
DX: M17.0 Bilateral primary osteoarthritis of knee (principal)
CPT/HCPCS: 20610; 73560; 77002; J2704; Q9966

== ENCOUNTER 2024-01-03 12:11 | Day surgery (SDC) | payer MEDICARE, OTHER ==
[2024-01-03] MEDS ORDERED: BUPIVACAINE 0.5% VIAL IJ ONE (12:12)
[2024-01-03] MEDS ORDERED: Depo-Medrol 40 MG/ML IM ONE (12:12)
[2024-01-03] MEDS ORDERED: LIDOCAINE HCL 1% 50 MG/5 ML VL PF IJ ONE (12:12)
[2024-01-03] MEDS ORDERED: Lactated Ringers 1,000 ML IV ONE (14:35)
--- NOTE | 2024-01-03 15:04 | XRAY ---
Indication: Left L4-S1 RFA. Intraoperative fluoroscopy provided for 22 seconds. 4 digital spot image submitted for interpretation demonstrates posterior needle tips projecting over the expected left L4-S1 nerve roots. Correlate with intraoperative findings/report.
--- NOTE | 2024-01-03 15:34 | XRAY ---
22 seconds of fluoroscopy was used in surgery for a left L4-S1 RFA.
== END 2024-01-03 14:43 | disposition home or self-care (01) ==
LOC: SDC-PAIN 12:11
PROVIDERS: ATTEND Psychiatry & Neurology Pain Medicine
DX: M47.817 Spondylosis without myelopathy or radiculopathy, lumbosacral region (principal)
CPT/HCPCS: 64635; 64636; 72100; 77002; J2001

== ENCOUNTER 2024-01-09 12:34 | Day surgery (SDC) | payer MEDICARE, OTHER ==
[2024-01-09] MEDS ORDERED: LIDOCAINE HCL 1% 50 MG/5 ML VL PF IJ ONE (12:35)
[2024-01-09] MEDS ORDERED: Depo-Medrol 40 MG/ML IM ONE (12:35)
[2024-01-09] MEDS ORDERED: BUPIVACAINE 0.5% VIAL IJ ONE (12:35)
[2024-01-09] MEDS ORDERED: DIPRIVAN 200 MG/20 ML IV ONE (14:18)
[2024-01-09] MEDS ORDERED: Lactated Ringers 1,000 ML IV ONE (15:03)
--- NOTE | 2024-01-09 16:26 | XRAY ---
Indication: Right L4-S1 RFA. Intraoperative fluoroscopy provided for 17 seconds. 4 digital spot images submitted for interpretation demonstrates posterior needle tips projecting over the expected right L4-S1 nerve roots. Correlate with intraoperative findings/report.
--- NOTE | 2024-01-09 16:34 | XRAY ---
17 seconds of fluoroscopy was used in surgery for a right L4-S1 RFA.
== END 2024-01-09 14:53 | disposition home or self-care (01) ==
LOC: SDC-PAIN 12:34
PROVIDERS: ATTEND Psychiatry & Neurology Pain Medicine
DX: M47.816 Spondylosis without myelopathy or radiculopathy, lumbar region (principal)
CPT/HCPCS: 64635; 64636; 72100; 77002; J2001; J2704

== ENCOUNTER 2024-04-28 04:32 | Emergency (ER) | payer MEDICARE, OTHER ==
--- NOTE | 2024-04-28 04:38 | ERPHSYRPT ---
- History of Present Illness Time Seen by Provider: 04/28/24 04:37 Source: patient Exam Limitations: no limitations Physician History: This is a 63-year-old white female patient of Dr. Vasquez who was seen at outpatient urgent care center and told she has a pneumonia and treated with an antibiotic and steroids. She does not know the names of these medications. She did not have a chest x-ray or viral swabs. Patient does not have chest pain. Patient states that her coughing is not improving after 2 days of treatment as an outpatient. Patient has not measured fever. She has no vomiting or diarrhea symptoms. She denies abdominal pain. Patient has a history of seizure disorder, hypertension, hypothyroidism, osteoarthritis, diverticulosis and anxiety. Timing/Duration: day(s) (3 to 4 days ago) Cough Quality/Degree: moderate, dry cough Possible Cause: no prior episodes Modifying Factors: Improves With: coughing Associated Symptoms: cough, sore throat, No fever, No chest pain/soreness, No headache, No shortness of breath Allergies/Adverse Reactions: coconut Allergy (Severe, Verified 04/28/24 04:55) Anaphylactic Reaction codeine [Codeine] Allergy (Mild, Verified 04/28/24 04:55) Shortness of Breath latex Allergy (Mild, Verified 04/28/24 04:55) Rash states "have a little on my waistband" Home Medications: Furosemide [Lasix] 40 mg PO DAILY 07/15/13 [History] Modafinil [Provigil] 200 mg PO DAILY 07/15/13 [History] Famotidine 20 mg [Pepcid 20 MG] 20 mg PO BID 10/25/16 [History] Amlodipine Besylate 10 mg PO DAILY 11/09/20 [History] Topiramate [Topamax] 50 mg PO DAILY 11/09/20 [History] Docusate Sodium [Colace] 100 mg PO DAILY 08/08/22 [History] Levothyroxine Sodium 100 Mcg [Synthroid 100 Mcg] 175 mcg PO DAILY 08/08/22 [History] Hx Tetanus, Diphtheria Vaccination/Date Given: Yes Hx Influenza Vaccination/Date Given: Yes Hx Pneumococcal Vaccination/Date Given: Yes Travel Risk - International Travel Have you traveled outside of the country in past 3 weeks: No - Emerging Infectious Disease Are you exhibiting symptoms associated with any current EIDs: Yes Symptoms: Cough: New Onset - Review of Systems Constitutional: No Symptoms Eyes: No Symptoms Ears, Nose, & Throat: No Symptoms Respiratory: No Symptoms Cardiac: No Symptoms Abdominal/Gastrointestinal: No Symptoms Genitourinary Symptoms: No Symptoms Musculoskeletal: No Symptoms Skin: No Symptoms Neurological: No Symptoms Psychological: No Symptoms Endocrine: No Symptoms Hematologic/Lymphatic: No Symptoms Immunological/Allergic: No Symptoms All Other Systems: Reviewed and Negative - Past Medical History Pertinent Past Medical History: Yes Neurological History: Seizures, Other ENT History: Cataracts Cardiac History: Hypertension Respiratory History: No Pertinent History Endocrine Medical History: Hypothyroidism, Other Musculoskeletal History: Osteoarthritis GI Medical History: Diverticulosis, Gallbladder Disease History: No Pertinent History Psycho-Social History: Anxiety Female Reproductive Disorders: No Pertinent History Other Medical History: SX HX: ACL/MENISCAL TEAR WITH REPAIR LEFT KNEE 2014, SINUS SURGERY FOR SLEEP APNEA, HYSTERECTOMY, LUMPECTOMY BREASTS, CATARACTS. REPORTS HX OF BACK INJURY WITH HX OF INJECTIONS X 2 IN THE PAST 2 YEARS WITH GOOD RELIEF. - Past Surgical History Past Surgical History: Yes Neuro Surgical History: No Pertinent History Cardiac: No Pertinent History Respiratory: No Pertinent History Gastrointestinal: Cholecystectomy Genitourinary: No Pertinent History Musculoskeletal: Orthopedic Surgery Female Surgical History: Hysterectomy, Lumpectomy Other Surgical History: ACL/MENISCAL TEAR WITH REPAIR LEFT KNEE 2014, SINUS SURGERY FOR SLEEP APNEA. knee injected 08/18, stent placed in bilary duct and drain tube due to gallstone in liver on 08/07/23. Patient had the drain tube removed on 09/12/23. Significant Family History: no pertinent family hx - Social History Smoking Status: Never smoker Exposure to second hand smoke: No Drug Use: none Patient Lives Alone: Yes - Social Determinants of Health Will the patient participate in the screening: Yes Do you worry about a steady place to live?: No In the past 12 months,have you had to go without utilities?: No Transportation Issues: No Has anyone in your support network made you feel unsafe?: No Have you or anyone in your house had to go without enough: No - Nursing Vital Signs Nursing Vital Signs: Initial Vital Signs Temperature 97.6 F 04/28/24 04:41 Pulse Rate 79 04/28/24 04:41 Respiratory Rate 20 04/28/24 04:41 Blood Pressure 158/72 04/28/24 04:41 O2 Sat by Pulse Oximetry 97 04/28/24 04:41 Pain Scale Pain Intensity 0 - Physical Exam General Appearance: no apparent distress, alert, anxiety Eye Exam: PERRL/EOMI, eyes nml inspection Ears, Nose, Throat Exam: normal ENT inspection, moist mucous membranes Neck Exam: normal inspection, non-tender, supple, full range of motion Respiratory Exam: airway intact, wheezing (Side expiratory wheezing), No chest tenderness, No respiratory distress Cardiovascular Exam: regular rate/rhythm, normal heart sounds, normal peripheral pulses Gastrointestinal/Abdomen Exam: soft, normal bowel sounds, No tenderness Pelvic Exam: not done Rectal Exam: not done Back Exam: normal inspection, normal range of motion, No CVA tenderness, No vertebral tenderness Extremity Exam: normal inspection, normal range of motion, pelvis stable Neurologic Exam: alert, oriented x 3, cooperative, physician liaison II-XII nml as tested, nml cerebellar function, nml station & gait, sensation nml Skin Exam: normal color, warm, dry Lymphatic Exam: No adenopathy SpO2 Interpretation: normal O2 Delivery: Room Air - Course Nursing assessment & vital signs reviewed: Yes Ordered Tests: Active Orders 24 hr Category Date Time Status Pulse Oximetry (ED) STAT Care 04/28/24 04:57 Active CHEST 1 VIEW (PORTABLE) Stat Exams 04/28/24 04:57 Ordered Respiratory Therapy Assessment DAILY RT 04/28/24 05:00 Active Medication Summary Discontinued Medications Generic Name Dose Route Start Last Admin Trade Name Jasielq PRN Reason Stop Dose Admin Albuterol/Ipratropium Confirm 04/28/24 04:53 Ipratropium/Albuterol Sulfate 3 Ml Ampul.Neb Administered 04/28/24 04:54 Dose 3 ml IH .STK-MED ONE Albuterol/Ipratropium 3 ml 04/28/24 04:59 04/28/24 05:00 Ipratropium/Albuterol Sulfate 3 Ml Ampul.Neb IH 04/28/24 05:00 3 ml STAT ONE Administration Benzonatate 200 mg 04/28/24 05:05 04/28/24 05:17 Benzonatate 100 Mg Capsule PO 04/28/24 05:06 200 mg STAT ONE Administration Benzonatate Confirm 04/28/24 05:09 Benzonatate 100 Mg Capsule Administered 04/28/24 05:10 Dose 200 mg PO .STK-MED ONE Ceftriaxone Sodium 1,000 mg 04/28/24 05:04 04/28/24 05:17 Ceftriaxone Sodium 1000 Mg Inj Vial IM 04/28/24 05:05 1,000 mg STAT ONE Administration Ceftriaxone Sodium Confirm 04/28/24 05:09 Ceftriaxone Sodium 1000 Mg Inj Vial Administered 04/28/24 05:10 Dose 1,000 mg .ROUTE .STK-MED ONE Methylprednisolone Sodium 0 mg 04/28/24 05:04 04/28/24 05:17 Succinate 125 mg/ Sterile IM 04/28/24 05:05 125 mg Water 2 ml STAT ONE Administration Methylprednisolone Sodium Succinate Confirm 04/28/24 05:09 Methylprednis Sod Succ 125 Mg/2 Ml Vial Administered 04/28/24 05:10 Dose 125 mg .ROUTE .STK-MED ONE Sterile Water Confirm 04/28/24 05:09 Water For Injection,Sterile 10 Ml Vial Administered 04/28/24 05:10 Dose 10 ml IJ .STK-MED ONE Lab/Rad Data: Laboratory Results 04/28/24 04/28/24 Range/Units 05:07 05:07 Influenza Type A Ag NEGATIVE (NEGATIVE) Influenza Type B Ag NEGATIVE (NEGATIVE) RSV (PCR) NEGATIVE (NEGATIVE) SARS-CoV-2 (PCR) NEGATIVE (NEGATIVE) Group A Strep Antibody NOT DETECTED (NEGATIVE) - Progress Progress: improved, re-examined Air Movement: good Progress Note: 04/28/24 05:02 My medical decision making and the assignment of low to moderate complexity to this patient's medical issue today is based on review of the patient's past medical history, review of the patient's medication list, reviewed patient drug allergy list, history present illness and physical findings on examination. The workup in this patient includes intramuscular injection of Solu-Medrol and Rocephin, Tessalon Perle, viral swabs and group A strep test as well as a chest x-ray. Differential diagnosis includes but is not limited to pneumonia, viral illness, strep pharyngitis, bronchitis, upper respiratory infection 04/28/24 06:14 I interpreted the patient's laboratory data results. Based on the laboratory data results, there are no acute, emergent medical issues 04/28/24 06:16 I interpreted the patient's preliminary chest x-ray report. The patient appears to have a right mid to lower lobe infiltrate Blood Culture(s) Obtained: No Antibiotics given: Yes Counseled pt/family regarding: lab results, diagnosis, need for follow-up, rad results Medical Desision Making - Diagnostic Testing Diagnostic test were ordered, analyzed, and reviewed by me: Yes Radiological Interpretation: Interpreted by me - Risk of complications The pt has a mod risk of morbidity or mortality based on: Need for prescription drug management - Departure Departure Disposition: Home Clinical Impression: Right pulmonary infiltrate on CXR Condition: Stable Critical Care Time: No Referrals: SHITAL VASQUEZ DO [Primary Care Provider] - Follow up/PCP as directed Additional Instructions: Drink plenty fluids. Avoid exposure to any type of smoke. Take your medications as prescribed. Call your primary care provider's office today, 04/28/2024, to make arrangements for outpatient follow-up to be seen in the next 3 days. Prescriptions: Benzonatate 200 mg PO TID PRN #10 cap PRN Reason: Cough Albuterol 8 gm Mdi Hfa [Ventolin Hfa MDI] 8 gm IH Q4H #1 unit Azithromycin 250 mg [Zithromax 250 MG TABLET] 250 mg PO ZPACK #6 tablet
[2024-04-28 04:44] VITALS: TEMP 97.6
[2024-04-28] MEDS ORDERED: DUONEB 0.5-3 MG/3 ml Neb IH ONE (04:53)
[2024-04-28] MEDS: DUONEB 0.5-3 MG/3 ml Neb IH ONE (05:00)
[2024-04-28 05:06] VITALS: RESP 18
[2024-04-28] MEDS ORDERED: Rocephin 1000 MG INJ ONE (05:09)
[2024-04-28] MEDS ORDERED: Sterile H2O 10 ml IJ ONE (05:09)
[2024-04-28] MEDS ORDERED: solu-MEDROL ONE (05:09)
[2024-04-28] MEDS ORDERED: Tessalon Perles 100 MG PO ONE (05:09)
[2024-04-28] MEDS: solu-MEDROL 125 MG, Sterile H2O 10 ml 2 ML IM ONE (05:17)
[2024-04-28] MEDS: Tessalon Perles 100 MG PO ONE (05:17)
[2024-04-28] MEDS: Rocephin 1000 MG INJ IM ONE (05:17)
[2024-04-28 05:45] LABS: INFLUENZA A NEGATIVE (NEGATIVE); INFLUENZA B NEGATIVE (NEGATIVE); RESPIRATORY SYNCTIAL VIRUS NEGATIVE (NEGATIVE); SARS-CoV-2 Xpert Express NEGATIVE (NEGATIVE)
[2024-04-28 06:02] VITALS: BP 143/88; PULSE 92; O2SAT 95
--- NOTE | 2024-04-28 07:21 | XRAY ---
Indication: Cough. Comparison: November 09, 2020 Portable apical lordotic chest now demonstrates mild right infrahilar infiltrate versus atelectasis. Remaining heart, lungs, and bony thorax unremarkable.
== END 2024-04-28 06:35 | disposition home or self-care (01) ==
LOC: ED 04:32
DX: R91.8 Other nonspecific abnormal finding of lung field (principal); R05.9 Cough, unspecified
CPT/HCPCS: 0241U; 71045; 87651; 94640; 94760; 96372; 99284; J0696; J2919; A9270-GY

== ENCOUNTER 2024-10-08 11:59 | Day surgery (SDC) | payer MEDICARE, OTHER ==
[2024-10-08] MEDS ORDERED: methylPREDNISolone acetate IM ONE (12:00)
[2024-10-08] MEDS ORDERED: BUPIVACAINE 0.5% VIAL IJ ONE (12:00)
[2024-10-08] MEDS ORDERED: propofoL IV ONE (14:36)
[2024-10-08] MEDS ORDERED: Lactated Ringers 1,000 ML IV ONE (16:37)
--- NOTE | 2024-10-08 21:12 | XRAY ---
Indication: Bilateral SI joint injection. Intraoperative fluoroscopy provided for 21 seconds. 2 digital spot image submitted for interpretation demonstrates posterior needle tips projecting over left and right SI joints. Small amount of contrast injected for needle tip placement. Correlate with intraoperative findings/report.
--- NOTE | 2024-10-08 21:23 | XRAY ---
21 seconds of fluoroscopy was used in surgery for a bilateral sacroiliac joint injection.
== END 2024-10-08 15:18 | disposition home or self-care (01) ==
LOC: SDC-PAIN 11:59
PROVIDERS: ATTEND Psychiatry & Neurology Pain Medicine
DX: M46.1 Sacroiliitis, not elsewhere classified (principal)
CPT/HCPCS: 27096; 72202; J1010; J2704; Q9966

== ENCOUNTER 2025-02-26 02:42 | Emergency (ER) | payer MEDICARE, OTHER ==
--- NOTE | 2025-02-26 02:46 | ERPHSYRPT ---
- History of Present Illness Allergies/Adverse Reactions: coconut Allergy (Severe, Verified 04/28/24 04:55) Anaphylactic Reaction codeine [Codeine] Allergy (Mild, Verified 04/28/24 04:55) Shortness of Breath latex Allergy (Mild, Verified 04/28/24 04:55) Rash states "have a little on my waistband" Home Medications: Furosemide [Lasix] 40 mg PO DAILY 07/15/13 [History] Modafinil [Provigil] 200 mg PO DAILY 07/15/13 [History] Famotidine 20 mg [Pepcid 20 MG] 20 mg PO BID 10/25/16 [History] Amlodipine Besylate 10 mg PO DAILY 11/09/20 [History] Topiramate [Topamax] 50 mg PO DAILY 11/09/20 [History] Docusate Sodium [Colace] 100 mg PO DAILY 08/08/22 [History] Levothyroxine Sodium 100 Mcg [Synthroid 100 Mcg] 175 mcg PO DAILY 08/08/22 [History] Hx Tetanus, Diphtheria Vaccination/Date Given: Yes Hx Influenza Vaccination/Date Given: Yes Hx Pneumococcal Vaccination/Date Given: Yes Travel Risk - Emerging Infectious Disease Are you exhibiting symptoms associated with any current EIDs: Yes Symptoms: Cough: New Onset - Past Medical History Pertinent Past Medical History: Yes Neurological History: Seizures, Other ENT History: Cataracts Cardiac History: Hypertension Respiratory History: No Pertinent History Endocrine Medical History: Hypothyroidism, Other Musculoskeletal History: Osteoarthritis GI Medical History: Diverticulosis, Gallbladder Disease History: No Pertinent History Psycho-Social History: Anxiety Female Reproductive Disorders: No Pertinent History Other Medical History: SX HX: ACL/MENISCAL TEAR WITH REPAIR LEFT KNEE 2014, SINUS SURGERY FOR SLEEP APNEA, HYSTERECTOMY, LUMPECTOMY BREASTS, CATARACTS. REPORTS HX OF BACK INJURY WITH HX OF INJECTIONS X 2 IN THE PAST 2 YEARS WITH GOOD RELIEF. - Past Surgical History Past Surgical History: Yes Neuro Surgical History: No Pertinent History Cardiac: No Pertinent History Respiratory: No Pertinent History Gastrointestinal: Cholecystectomy Genitourinary: No Pertinent History Musculoskeletal: Orthopedic Surgery Female Surgical History: Hysterectomy, Lumpectomy Other Surgical History: ACL/MENISCAL TEAR WITH REPAIR LEFT KNEE 2014, SINUS SURGERY FOR SLEEP APNEA. knee injected 08/18, stent placed in bilary duct and drain tube due to gallstone in liver on 08/07/23. Patient had the drain tube removed on 09/12/23. Significant Family History: no pertinent family hx - Social History Smoking Status: Never smoker Exposure to second hand smoke: No Drug Use: none Patient Lives Alone: Yes - Social Determinants of Health Will the patient participate in the screening: Yes Do you worry about a steady place to live?: No In the past 12 months,have you had to go without utilities?: No Transportation Issues: No Has anyone in your support network made you feel unsafe?: No Have you or anyone in your house had to go w/o enough food: No - Departure Referrals: SHITAL VASQUEZ DO [Primary Care Provider, [facility]] - Follow up/PCP as directed
[2025-02-26 03:06] VITALS: TEMP 97.8
--- NOTE | 2025-02-26 03:25 | ERPHSYRPT ---
- History of Present Illness Time Seen by Provider: 02/26/25 03:25 Historian: patient Exam Limitations: no limitations Patient Subjective Stated Complaint: pt reports pain beginning several days ago, reports LUQ abdominal pain. pt reports history of biliary drain in place. states she has been experiencing pain after meals as well. pt reports in October her surgeon attempted to remove the biliary stent and was unable to, pt reports at that time the surgeon cleaned the stent and it was draining and in working order. Triage Nursing Assessment: pt is aox3, pupils perrl, afebrile, resps easy and non labored, cap refill < 3 seconds, radial pulses strong and equal, pt abd soft, tender to the LUQ, bowel sounds present and normoactive, pt skin pink warm dry. Physician History: Patient is a 64-year-old female history of seizure disorder, hypertension hypothyroidism osteoarthritis BMI of 43.3 presents to our ED for evaluation of localized periumbilical pain. Patient states symptoms started 2 to 3 days ago. Symptoms have been progressive. Patient reports that eating produces pain and causes a sensation of fullness and abdominal distention. Patient reports that she had her gallbladder removed she has a common bile duct stent that was unable to be removed by her surgeon. So the stent is still in place. No nausea no vomiting no diarrhea no fever. Patient otherwise feels well. She voices no other complaints or concerns at this time. Portions of this note were created with voice recognition technology. There may be grammatical, spelling, punctuation or sound alike errors Timing/Duration: day(s) (2 to 3 days ago) Activities at Onset: none Quality: aching Abdominal Pain Onset Location: periumbilical Pain Radiation: no radiation Severity of Pain-Max: moderate Severity of Pain-Current: mild Modifying Factors: Improves With: palpation Associated Symptoms: other (Sensation of satiety and fullness of abdomen) Previous symptoms: no prior history Allergies/Adverse Reactions: coconut Allergy (Severe, Verified 02/26/25 03:06) Anaphylactic Reaction codeine [Codeine] Allergy (Mild, Verified 02/26/25 03:06) Shortness of Breath latex Allergy (Mild, Verified 02/26/25 03:06) Rash states "have a little on my waistband" Home Medications: Furosemide [Lasix] 40 mg PO DAILY 07/15/13 [History] Modafinil [Provigil] 200 mg PO DAILY 07/15/13 [History] Famotidine 20 mg [Pepcid 20 MG] 20 mg PO BID 10/25/16 [History] Amlodipine Besylate 10 mg PO DAILY 11/09/20 [History] Topiramate [Topamax] 50 mg PO DAILY 11/09/20 [History] Docusate Sodium [Colace] 100 mg PO DAILY 08/08/22 [History] Levothyroxine Sodium 100 Mcg [Synthroid 100 Mcg] 175 mcg PO DAILY 08/08/22 [History] Hx Tetanus, Diphtheria Vaccination/Date Given: Yes Hx Influenza Vaccination/Date Given: Yes Hx Pneumococcal Vaccination/Date Given: Yes Immunizations Up to Date: Yes Travel Risk - International Travel Have you traveled outside of the country in past 3 weeks: No - Emerging Infectious Disease Are you exhibiting symptoms associated with any current EIDs: No Symptoms: Cough: New Onset - Review of Systems All Other Systems: Reviewed and Negative - Past Medical History Pertinent Past Medical History: Yes Neurological History: Seizures, Other ENT History: Cataracts Cardiac History: Hypertension Respiratory History: No Pertinent History Endocrine Medical History: Hypothyroidism, Other Musculoskeletal History: Osteoarthritis GI Medical History: Diverticulosis, Gallbladder Disease History: No Pertinent History Psycho-Social History: Anxiety Female Reproductive Disorders: No Pertinent History Other Medical History: SX HX: ACL/MENISCAL TEAR WITH REPAIR LEFT KNEE 2014, SINUS SURGERY FOR SLEEP APNEA, HYSTERECTOMY, LUMPECTOMY BREASTS, CATARACTS. REPORTS HX OF BACK INJURY WITH HX OF INJECTIONS X 2 IN THE PAST 2 YEARS WITH GOOD RELIEF. - Past Surgical History Past Surgical History: Yes Neuro Surgical History: No Pertinent History Cardiac: No Pertinent History Respiratory: No Pertinent History Gastrointestinal: Cholecystectomy Genitourinary: No Pertinent History Musculoskeletal: Orthopedic Surgery Female Surgical History: Hysterectomy, Lumpectomy Other Surgical History: ACL/MENISCAL TEAR WITH REPAIR LEFT KNEE 2014, SINUS SURGERY FOR SLEEP APNEA. knee injected 08/18, stent placed in bilary duct and drain tube due to gallstone in liver on 08/07/23. Patient had the drain tube removed on 09/12/23. Significant Family History: no pertinent family hx - Social History Smoking Status: Never smoker Exposure to second hand smoke: No Drug Use: none - Social Determinants of Health Will the patient participate in the screening: Yes Do you worry about a steady place to live?: No Do you have any problems with any of the following?: No known problems In the past 12 months,have you had to go without utilities?: No Transportation Issues: No Has anyone in your support network made you feel unsafe?: No Have you or anyone in your house had to go w/o enough food: No - Nursing Vital Signs Nursing Vital Signs: Initial Vital Signs Temperature 97.8 F 02/26/25 02:58 Pulse Rate 88 02/26/25 02:58 Respiratory Rate 17 02/26/25 02:58 Blood Pressure 180/95 02/26/25 02:58 O2 Sat by Pulse Oximetry 97 02/26/25 02:58 Pain Scale Pain Intensity 4 - Physical Exam General Appearance: no apparent distress, alert Eye Exam: PERRL/EOMI, eyes nml inspection Ears, Nose, Throat Exam: normal ENT inspection, moist mucous membranes Neck Exam: normal inspection, full range of motion Respiratory Exam: normal breath sounds, lungs clear, airway intact, No respiratory distress Cardiovascular Exam: regular rate/rhythm, normal heart sounds Gastrointestinal/Abdomen Exam: soft, other (Obese abdomen tenderness left lower quadrant.), No tenderness, No mass Back Exam: normal inspection, normal range of motion, No CVA tenderness, No vertebral tenderness Extremity Exam: normal inspection, normal range of motion, pelvis stable Neurologic Exam: alert, oriented x 3, cooperative, sensation nml, No motor deficits Skin Exam: normal color, warm, dry Lymphatic Exam: No adenopathy SpO2 Interpretation: normal SpO2: 97 O2 Delivery: Room Air - Course Nursing assessment & vital signs reviewed: Yes - CT Exams Abdomen/Pelvis CT Interpretation: Tele-radiologist Report (Left adrenal nodule, diverticulosis, spinal canal stenosis) Ordered Tests: Active Orders 24 hr Category Date Time Status IV Insertion STAT Care 02/26/25 03:25 Active ABDOMEN AND PELVIS W/0 CONTRAS [CT] Stat Exams 02/26/25 03:26 Completed CBC W DIFF Stat Lab 02/26/25 04:27 Completed CMP Stat Lab 02/26/25 04:27 Completed LIPASE Stat Lab 02/26/25 04:27 Completed TROPONIN Q4H Lab 02/26/25 04:27 Completed TROPONIN Q4H Lab 02/26/25 07:30 Ordered TROPONIN Q4H Lab 02/26/25 11:30 Ordered UA W/RFX UR CULTURE Stat Lab 02/26/25 03:30 Completed Medication Summary Generic Name Dose Route Start Last Admin Trade Name Shahnaz PRN Reason Stop Dose Admin Sodium Chloride 1,000 mls @ 100 mls/hr 02/26/25 03:30 02/26/25 03:56 Sodium Chloride 0.9% 1000 Ml IV 03/28/25 03:29 100 mls/hr .Q10H SAV Administration Discontinued Medications Generic Name Dose Route Start Last Admin Trade Name Shahnaz PRN Reason Stop Dose Admin Ketorolac Tromethamine 30 mg 02/26/25 03:25 02/26/25 03:55 Ketorolac Tromethamine 30 Mg/Ml Inj IV 02/26/25 03:26 30 mg STAT ONE Administration Ketorolac Tromethamine Confirm 02/26/25 03:53 Ketorolac Tromethamine 30 Mg/Ml Inj Administered 02/26/25 03:54 Dose 30 mg .ROUTE .STK-MED ONE Potassium Chloride 40 meq 02/26/25 05:46 Potassium Chloride Tab 10 Meq Tab PO 02/26/25 05:47 STAT ONE Lab/Rad Data: Laboratory Result Diagrams 02/26/25 04:27 02/26/25 04:27 Laboratory Results 02/26/25 02/26/25 02/26/25 Range/Units 04:27 04:27 04:27 WBC 8.8 (3.98-10.04) x10^3/uL RBC 4.96 (3.93-5.22) x10^6/uL Hgb 14.4 (11.2-15.7) g/dL Hct 41.9 (34.1-44.9) % MCV 84.5 (79.4-94.8) fL MCH 29.0 (25.6-32.2) pg MCHC 34.4 (32.2-35.5) g/dL RDW 12.8 (11.7-14.4) % Plt Count 194 (182-369) x10^3/uL MPV 10.1 (9.4-12.3) fL Gran % 50.8 (34.0-71.1) % Immature Gran % (Auto) 0.3 (0.001-0.429) % Nucleat RBC Rel Count 0.0 (0.00-0.2) % Eos # (Auto) 0.32 (0.04-0.36) x10^3/uL Immature Gran # (Auto) 0.03 (0.001-0.031) x10^3u/L Absolute Lymphs (auto) 3.15 (1.18-3.74) x10^3/uL Absolute Monos (auto) 0.75 (0.24-0.86) x10^3/uL Absolute Nucleated RBC 0.00 (0.00-0.012) x10^3u/L Lymphocytes % 35.9 (19.3-51.7) % Monocytes % 8.6 (4.7-12.5) % Eosinophils % 3.6 (0.7-5.8) % Basophils % 0.8 (0.1-1.2) % Absolute Granulocytes 4.45 (1.56-6.13) x10^3/uL Basophils # 0.07 (0.01-0.08) x10^3/uL Sodium 139 (135-145) mmol/L Potassium 3.2 L (3.5-5.1) mmol/L Chloride 107 (98-107) mmol/L Carbon Dioxide 24 (22-30) mmol/L Anion Gap 11.4 (5-15) MEQ/L BUN 12 (7-17) mg/dL Creatinine 0.66 (0.52-1.04) mg/dL Estimated GFR 98.5 ML/MIN Glucose 111 H (74-106) mg/dL Calcium 8.7 (8.4-10.2) mg/dL Total Bilirubin 0.40 (0.2-1.3) mg/dL AST 41 H (14-36) U/L ALT 54 H (0-35) U/L Alkaline Phosphatase 120 (38-126) U/L Troponin I < 0.012 (0.000-0.033) ng/mL Serum Total Protein 6.8 (6.3-8.2) g/dL Albumin 3.8 (3.5-5.0) g/dL Lipase 71 (23-300) U/L Urine Color (Yellow) Urine Appearance (Clear) Urine pH (4.6-8.0) Ur Specific [place] (1.005-1.030) Urine Protein (Negative) Urine Glucose (UA) (Negative) mg/dL Urine Ketones (Negative) Urine Blood (Negative) Urine Nitrite (Negative) Urine Bilirubin (Negative) Urine Urobilinogen (0.2) mg/dL Ur Leukocyte Esterase (Negative) U Hyaline Cast (Auto) (0-2) /LPF Urine Microscopic RBC (0-5) /HPF Urine Microscopic WBC (0-5) /HPF Ur Epithelial Cells (None Seen) /HPF Urine Bacteria (None Seen) /HPF Urine Culture Reflexed (NO) 02/26/25 Range/Units 03:30 WBC (3.98-10.04) x10^3/uL RBC (3.93-5.22) x10^6/uL Hgb (11.2-15.7) g/dL Hct (34.1-44.9) % MCV (79.4-94.8) fL MCH (25.6-32.2) pg MCHC (32.2-35.5) g/dL RDW (11.7-14.4) % Plt Count (182-369) x10^3/uL MPV (9.4-12.3) fL Gran % (34.0-71.1) % Immature Gran % (Auto) (0.001-0.429) % Nucleat RBC Rel Count (0.00-0.2) % Eos # (Auto) (0.04-0.36) x10^3/uL Immature Gran # (Auto) (0.001-0.031) x10^3u/L Absolute Lymphs (auto) (1.18-3.74) x10^3/uL Absolute Monos (auto) (0.24-0.86) x10^3/uL Absolute Nucleated RBC (0.00-0.012) x10^3u/L Lymphocytes % (19.3-51.7) % Monocytes % (4.7-12.5) % Eosinophils % (0.7-5.8) % Basophils % (0.1-1.2) % Absolute Granulocytes (1.56-6.13) x10^3/uL Basophils # (0.01-0.08) x10^3/uL Sodium (135-145) mmol/L Potassium (3.5-5.1) mmol/L Chloride (98-107) mmol/L Carbon Dioxide (22-30) mmol/L Anion Gap (5-15) MEQ/L BUN (7-17) mg/dL Creatinine (0.52-1.04) mg/dL Estimated GFR ML/MIN Glucose (74-106) mg/dL Calcium (8.4-10.2) mg/dL Total Bilirubin (0.2-1.3) mg/dL AST (14-36) U/L ALT (0-35) U/L Alkaline Phosphatase (38-126) U/L Troponin I (0.000-0.033) ng/mL Serum Total Protein (6.3-8.2) g/dL Albumin (3.5-5.0) g/dL Lipase (23-300) U/L Urine Color Yellow (Yellow) Urine Appearance Clear (Clear) Urine pH 5.0 (4.6-8.0) Ur Specific [place] <=1.005 (1.005-1.030) Urine Protein Negative (Negative) Urine Glucose (UA) Negative (Negative) mg/dL Urine Ketones Negative (Negative) Urine Blood Negative (Negative) Urine Nitrite Negative (Negative) Urine Bilirubin Negative (Negative) Urine Urobilinogen 0.2 (0.2) mg/dL Ur Leukocyte Esterase Trace A (Negative) U Hyaline Cast (Auto) NONE SEEN (0-2) /LPF Urine Microscopic RBC 0-2 (0-5) /HPF Urine Microscopic WBC 0-2 (0-5) /HPF Ur Epithelial Cells None Seen (None Seen) /HPF Urine Bacteria None Seen (None Seen) /HPF Urine Culture Reflexed NO (NO) - Progress Progress: improved Progress Note: Patient is a 64-year-old female history of seizure disorder, hypertension hypothyroidism osteoarthritis BMI of 43.3 presents to our ED for evaluation of localized periumbilical pain. Physical exam shows mild left lower abdominal tenderness. Laboratory workup shows a hypokalemia. Patient received an oral dose of 40 mEq potassium chloride. UA negative for UTI. CT scan reveals a left adrenal nodule. Diverticulosis and possible lumbar canal stenosis. IV fluids administered. Patient received Toradol for pain control. Vital stable. Patient reassessed. She is resting comfortably. Patient advised of all the findings observed including all included in her diagnosis and the importance of early follow-up. No indication for further workup at this time. Will discharge home. Patient agrees to follow-up with her primary care doctor within 48 hours for reevaluation. History obtained from patient. Differential diagnosis includes constipation, colitis, diverticulitis, urinary tract infection Portions of this note were created with voice recognition technology. There may be grammatical, spelling, punctuation or sound alike errors Complexity of problems addressed is moderate acute complicated. No critical care time. Complexity of data reviewed and analyzed is moderate. Test ordered test reviewed results analyzed and correlated clinically with history and physical exam. Risk of complication and or risk of morbidity/mortality of patient management is low. Vital stable. Time spent to discharge patient is approximately 15 minutes. Plan of care established for shared decision making. No social determinants of health present to impede follow-up. Portions of this note were created with voice recognition technology. There may be grammatical, spelling, punctuation or sound alike errors 02/26/25 05:50 Counseled pt/family regarding: lab results, diagnosis, rad results - Departure Departure Disposition: Home Clinical Impression: Abdominal pain, Hypokalemia, Adrenal nodule, Central stenosis of spinal canal, Diverticulosis Condition: Stable Critical Care Time: No Referrals: SHITAL VASQUEZ DO [Primary Care Provider, [facility]] - Follow up/PCP as directed Additional Instructions: Discharge/Care Plan SHEILALYNDSEY LIZ was seen on 02/26/25 in the Emergency Room. The patient was counseled regarding Diagnosis,Lab results, Imaging studies, need for follow up and when to return to the Emergency Room. Prescriptions given: Discharge Note I have spoken with the patient and/or caregivers. I have explained the patient's condition, diagnosis and treatment plan based on the information available to me at this time. I have answered the patient's and/or caregiver's questions and addressed any concerns. The patient and/or caregivers have as good understanding of the patient's diagnosis, condition and treatment plan as can be expected at this point. The vital signs have been stable. The patient's condition is stable and appropriate for discharge from the emergency department. The patient will pursue further outpatient evaluation with the primary care physician or other designated or consulting physician as outlined in the discharge instructions. The patient and/or caregivers are agreeable to this plan of care and follow-up instructions have been explained in detail. The patient and/or caregivers have received these instruction. The patient/and or caregivers are aware that any significant change in condition or worsening of symptoms should prompt an immediate return to this or the closest emergency department or call 911.
[2025-02-26 03:47] LABS: Glucose, Urine Negative (Negative); Protein,Urine Dip Negative (Negative); RBC 0-2 /HPF (0-5); WBC 0-2 /HPF (0-5)
[2025-02-26] MEDS ORDERED: TORAdol 30 mg Injection ONE (03:53)
[2025-02-26] MEDS: TORAdol 30 mg Injection IV ONE (03:55)
--- NOTE | 2025-02-26 04:18 | XRAY ---
CLINICAL HISTORY: pain COMPARISON: Comparison is made with 09/14/2023. TECHNIQUE: Non-contrast CT of the abdomen and pelvis was performed using the following protocol: axial images with reconstructed coronal and sagittal images. No intravenous contrast was administered. One of the following dose reduction techniques was utilized for this exam: automated exposure control, adjustment of the mA and/or kV according to patient size, and use of iterative reconstruction. FINDINGS: Abdomen: Liver: The liver is normal in size, shape, and density. No focal lesions, cysts, or masses are identified. There is stable biliary stent placement in the common bile duct with pneumobilia. Resolution of the anterior perihepatic fluid with air bubble is presumed postsurgical. Gallbladder and Biliary System: The gallbladder is not visualized and is likely removed. Pancreas: The pancreatic head, body, and tail are visualized and appear normal in size and density. No pancreatic masses or calcifications are noted. Spleen: The spleen is normal in size, shape, and density. No splenic lesions or masses are identified. Kidneys and Adrenal Glands: Both kidneys are normal in size, shape, and position. Cortical thickness is within normal limits. No renal calculi or hydronephrosis are present. The left adrenal gland appears bulky, with the suggestion of a nodule within it measuring approximately 17 x 13 mm. The right adrenal gland appears normal. Pelvis: Urinary Bladder: The urinary bladder is normal in contour and wall thickness. No intraluminal lesions are present. Uterus: The uterus is not visualized and is likely removed. Ovaries: The ovaries are not well visualized, but no gross abnormalities are noted. Vagina: The vagina is normal in contour and wall thickness. Cervix: There is no evidence of mass or abnormal thickening. Peritoneal and Retroperitoneal Structures: No free fluid or abnormal fluid collections are identified within the abdomen or pelvis. No lymphadenopathy is noted. There are stable aortoiliac calcifications without evidence of abdominal aortic aneurysm. Bowel: Numerous outpouchings are identified along the descending and sigmoid colon, representing colonic diverticulosis without features of acute diverticulitis. Moderate colonic fecal loading is identified. The appendix is not separately visualized. There is no evidence of bowel obstruction or wall thickening. Bones and Soft Tissues: Spondylotic changes are identified in the visualized thoracolumbar spine. A posterior osteophyte is identified at the T8-T9 level, resulting in canal stenosis with possible cord compression. The pelvic bones and soft tissues are unremarkable. No fractures or abnormal masses are identified. Mesh is identified along the anterior abdominal wall in the midline without evidence of hernia on the current examination. Minimal bibasilar atelectasis is identified. The remainder of the visualized lung bases is grossly clear. IMPRESSION: 1. There is stable biliary stent placement in the common bile duct with pneumobilia. Resolution of the anterior perihepatic fluid with air bubble is noted. 2. Stable colonic diverticulosis without features of acute diverticulitis. 3. No evidence of acute intra-abdominal pathology. Electronically Signed by: Leonel Cohen MD. (02/26/2025 04:17:53 EDT)
[2025-02-26 04:35] LABS: BASOPHIL % 0.8 % (0.1-1.2); Basophil (Absolute #) 0.07 x10^3/uL (0.01-0.08); Eosinophil (Absolute #) 0.32 x10^3/uL (0.04-0.36); Hematocrit 41.9 % (34.1-44.9); Hemoglobin 14.4 g/dL (11.2-15.7); IMMATURE GRAN # 0.03 x10^3u/L (0.001-0.031); IMMATURE GRAN % 0.3 % (0.001-0.429); Lymphocyte (Absolute #) 3.15 x10^3/uL (1.18-3.74); Mean Corpuscular Hemoglobin 29.0 pg (25.6-32.2); Mean Corpuscular Hgb Concent. 34.4 g/dL (32.2-35.5); Monocyte (Absolute #) 0.75 x10^3/uL (0.24-0.86); NUCLEATED RBC # 0.00 x10^3u/L (0.00-0.012); NUCLEATED RBC % 0.0 % (0.00-0.2); Platelet Count 194 x10^3/uL (182-369); Red Blood Count 4.96 x10^6/uL (3.93-5.22); White Blood Count 8.8 x10^3/uL (3.98-10.04)
[2025-02-26 04:43] LABS: Calcium 8.7 mg/dL (8.4-10.2); Carbon Dioxide 24.0 mmol/L (22-30); Creatinine 1 0.66 mg/dL (0.52-1.04); EST GLOMERULAR FILTRATION RATE 98.5 ML/MIN; Glucose 111.0 mg/dL (74-106); Potassium 3.2 mmol/L (3.5-5.1); SGOT/AST 41.0 U/L (14-36); SGPT/ALT 54.0 U/L (0-35); Total Protein 6.8 g/dL (6.3-8.2)
[2025-02-26] MEDS ORDERED: Klor Con ONE (05:57)
[2025-02-26] MEDS: Klor Con PO ONE (05:58)
[2025-02-26 06:12] VITALS: BP 119/70; PULSE 84; RESP 19; O2SAT 99
== END 2025-02-26 06:14 | disposition home or self-care (01) ==
LOC: ED 02:42
DX: R10.12 Left upper quadrant pain (principal); E87.6 Hypokalemia; K57.30 Diverticulosis of large intestine without perforation or abscess without bleeding